=== PATIENT | female | born 1940 | race Caucasian/White ===

== ENCOUNTER 2020-12-24 10:49 | Outpatient (CLI) | payer MEDICARE, SELFPAY | END 2020-12-24 10:50 | disposition home or self-care (01) | LOC: ANHCOVIDVC 10:49 | PROVIDERS: PCP Family Medicine | DX: Z23 Encounter for immunization (principal) | CPT/HCPCS: 0001A; 91300 ==

== ENCOUNTER 2021-01-14 10:23 | Outpatient (CLI) | payer MEDICARE, SELFPAY | END 2021-01-14 10:24 | disposition home or self-care (01) | LOC: ANHCOVIDVC 10:23 | PROVIDERS: PCP Family Medicine | DX: Z23 Encounter for immunization (principal) | CPT/HCPCS: 0002A; 91300 ==

== ENCOUNTER 2021-04-06 12:21 | Inpatient (IN) | payer MEDICARE, SELFPAY ==
[2021-04-06] VITALS (27 sets, daily range): BP systolic 129–166; BP diastolic 46–90; PULSE 71–97; RESP 13–19; TEMP 35.8–36.6; O2SAT 96–100; BMI 21.7
--- NOTE | ~2021-04-06 | XR_ITS ---
EXAMINATION: XR chest 1V 04/06/2021 13:56 INDICATION: Altered mental status. PROCEDURE: AP view of the chest COMPARISON: Comparison to multiple prior studies sequentially, with oldest reviewed study dated 07/06. FINDINGS: The lungs are clear. The cardiomediastinal silhouette is within normal limits. There are no pleural effusions. There is no pneumothorax suspected. Status post median sternotomy for CABG. IMPRESSION: 1: NO ACUTE CARDIOPULMONARY DISEASE. Reviewed, dictated and finalized at location A.
--- NOTE | ~2021-04-06 | CT_ITS ---
EXAMINATION: CT brain wo con DATE: 04/06/2021 13:57 INDICATION: Altered mental status. Generalized weakness. TECHNIQUE: Computed tomography (CT) of the head was performed without intravenous contrast. The dose- length product was 529.67 mGy-cm. Automated exposure control and iterative reconstruction technique w ere employed. COMPARISON: CT dated 01/29/2018 FINDINGS: Generalized atrophy. There are scattered moderate periventricular and subcortical white mat ter changes, most likely related to small vessel ischemic disease (microangiopathy). There is a chron ic right thalamic infarction. No acute intracranial hemorrhage, infarction, mass or mass effect. Basi lar cisterns are patent. Paranasal sinuses are pneumatized. There is right mastoid effusion. No depre ssed skull fractures. IMPRESSION: 1. No acute intracranial abnormality. 2: Chronic age-related findings. 3: Chronic right thalamic infarction. Reviewed, dictated and finalized at location A.
--- NOTE | 2021-04-06 13:05 | ED.AMS ---
HPI - Altered Mental Status General Chief Complaint: Altered Mental Status Stated Complaint: INCREASED WEAKNESS,CONFUSION Time Seen by Provider: 04/06/21 13:05 Source: patient and family Mode of arrival: EMS Limitations: dementia History of Present Illness HPI narrative: Patient is an 80-year-old female who presents for evaluation of altered mental status and increasing weakness. Patient's history is provided mostly by EMS and the patient's given her advanced Alzheimer's dementia. Patient recently had dementia medications changed 3 weeks ago, she is currently taking quetiapine, divalproex as well as memantine which was increased from 10 mg to 50 mg. Patient's feels as if her symptoms worsened when they increase the memantine dose. No fever, chills, nausea or vomiting. Patient with adequate oral intake at home. Patient has had increasing weakness and yesterday was unable to stand or walk. Patient's is unable to lift her. The increasing weakness and decreased ambulation is what prompted their visit to the emergency department today. Related Data Home Medications Medication Instructions Recorded Confirmed quetiapine 50 mg tablet 50 mg PO QHS 04/01/21 04/01/21 trazodone 100 mg tablet 100 mg PO ONCE tablet 04/01/21 04/01/21 divalproex 04/06/21 04/06/21 memantine 50 mg PO DAILY 04/06/21 Allergies Allergy/AdvReac Type Severity Reaction Status Date / Time No Known Allergies Allergy Verified 04/01/21 13:22 Review of Systems Review of Systems: ROS unobtainable: Yes unobtainable due to mental status PMFSH Past Medical History Medical History (Updated 04/06/21 @ 16:42 by Jolie Galo MD) Alzheimer disease Breast cancer CAD (coronary artery disease) Diabetes mellitus Hypothyroid Surgical History Surgical History H/O left mastectomy S/P CABG (coronary artery bypass graft) Social History Social History Smoking status: Never smoker Second hand tobacco smoke exposure: No Alcohol intake: never Substance use: never Substance use type: does not use Gender identity (if verbalized by the patient): Female Spiritual care concerns: No Agree to blood products: Yes Exam Narrative: Exam Narrative: GENERAL: Awake, alert, conversant HEAD: Normocephalic, atraumatic. EYES: PERRLA and EOMI. ENT: Nares clear, no rhinorrhea or epistaxis. Mucous membranes dry NECK: Supple. CHEST: No respiratory distress, breathing even and non labored HEART: Regular rate, sinus rhythm ABDOMEN:Non distended, non tender EXTREMITIES: Normal range of motion. No edema. SKIN: Warm, dry, no rash. NEURO:No focal deficits. Patient is able to raise the left leg off of the bed, unable to do this in the right leg. No facial droop. Tongue is midline. Difficult to have patient follow complex commands, she is unable to complete [id number]-[id number] or [id number] testing. Alert and oriented x1, baseline per spouse Course Vital Signs Vital signs: Vital Signs Temperature 36.6 C 04/06/21 12:27 Pulse Rate 79 04/06/21 12:27 Respiratory Rate 17 04/06/21 12:27 Blood Pressure 135/90 04/06/21 12:27 Pulse Oximetry 99 04/06/21 12:27 Temperature 36.6 C 04/06/21 12:27 Pulse Rate 90 04/06/21 15:45 Respiratory Rate 14 04/06/21 15:45 Blood Pressure 137/64 04/06/21 14:25 Pulse Oximetry 96 04/06/21 15:33 MDM - Altered Mental Status MDM Narrative Medical decision making narrative: Patient presenting for increased weakness. They be secondary to adverse medication reaction versus infectious type process or acute process. Vital signs are stable. Laboratory results are reassuring. Stable, chronic anemia. No severe electrolyte derangement. Patient with a nitrate positive urine, thus was treated with Rocephin. Likely consistent with a urinary tract infection given symptoms. Barbra
[2021-04-06] MEDS: SODIUM CHLORIDE 0.9% IV 1,000 ML 999 ML IV CONT (13:20)
--- NOTE | 2021-04-06 13:21 | ECG_ITS ---
Measurements Intervals [place] Rate: 77 P: 77 OK: 139 QRS: -43 QRSD: 106 T: -8 QT: 373 QTc: 423 Interpretive Statements SINUS RHYTHM ATRIAL PREMATURE COMPLEX LEFT AXIS DEVIATION INTRAVENTRICULAR CONDUCTION DELAY DELAYED PRECORDIAL R/S TRANSITION BORDERLINE ST-T WAVE ABNORMALITY- INF/LAT LEADS BASELINE ARTIFACT- I, V3, V6 BORDERLINE ECG Electronically Signed On 04-06-2021 17:05:53 CDT by Desmond De La Cruz D.O.
[2021-04-06 13:54] LABS: Add Urine Microscopic? YES; Appearance Urine Cloudy (Clear); Bacteria Urine Trace /hpf; Bilirubin Urine Negative (Negative); Blood Urine Negative (Negative); Color Urine Amber (Yellow); Glucose Urine UA Negative (Negative); Ketones Urine Trace mg/dL (Negative); Leukocyte Esterase Ur Negative LEU/UL (Negative); Nitrate Urine Positive (Negative); Protein Urine 1+ mg/dL (Negative); RBC Urine 0-2 /hpf (0-2); Specific Grav Ur 1.018 (1.001-1.035); WBC Urine 0-3 /hpf
[2021-04-06 14:21] LABS: Basophils Percent Auto 0.2 % (0.2-1.2); Eosinophils Percent Auto 0.1 % (0-4.4); Hematocrit 34.7 % (37.0-47.0); Hemoglobin 11.5 g/dL (12.0-15.0); Immature Granulocyte Absolute 0.03 K/mm3 (0.00-0.031); Immature Granulocyte Percent A 0.4 % (0-0.5); Lymphocytes Absolute Auto 0.98 K/mm3 (0.9-3.2); Lymphocytes Percent Auto 11.8 % (18.3-44.2); Mean Corpuscular HGB Conc 33.1 g/dl (32-36); Mean Corpuscular Hemoglobin 30.5 pg (26-34); Monocytes Absolute Auto 0.6 K/mm3 (0.1-0.6); Monocytes Percent Auto 6.6 % (2.6-8.5); Neutrophils Absolute Auto 6.7 K/mm3 (1.3-6.7); Neutrophils Percent Auto 80.9 % (45.5-73.1); Platelet Count Result 132 k/mm3 (150-375); Red Blood Count 3.77 M/mm3 (4.2-5.4); Red Cell Distribution Width 13.8 % (11.5-14.5); White Blood Count 8.3 K/mm3 (4.5-10.0)
[2021-04-06 14:34] LABS: Ammonia < 9 umol/L (9-30)
[2021-04-06 14:35] LABS: Alanine Aminotransferase 9 U/L (4-35); Albumin Level 3.5 g/dL (3.5-5.1); Alkaline Phosphatase 60 U/L (38-126); Anion Gap 6 mmol/L (8-16); Aspartate Amino Transferase 33 U/L (14-36); Bilirubin,Total 0.6 mg/dL (0.2-1.3); Blood Urea Nitrogen 13 mg/dL (7-17); Calcium 8.8 mg/dL (8.4-10.2); Carbon Dioxide 30 mmol/L (22-30); Chloride 101 mmol/L (98-107); Estimated CRCL calculation 34 ml/min; Estimated Glomerular Filt Rate 53; Glucose 97 mg/dL (65-105); Potassium 4.3 mmol/L (3.4-5.0); Prothrombin Time 13.5 Seconds (11.1-14.7); Sodium 137 mmol/L (137-145)
--- NOTE | 2021-04-06 18:54 | ADMGEN ---
This patient, Sherie Amezcua, was admitted to Medical Room 346-01. Patient/family oriented to hospital policies and general routines including ID bracelet, bed and alarms, visiting hours, pain management, procedures, bathroom and other care routines, personal items, smoking policy, room service/diet, and visiting hours. Information on how to activate the Rapid Response Team has been discussed. Patient/Family are encouraged to report perceived risks to care and to ask questions if they do not understand what they are told or what they should do.
--- NOTE | 2021-04-07 04:23 | PM.IMHP ---
H&P: HPI History of Present Illness Date/Time: 04/07/21 04:23 Chief Complaint: Generalized weakness, worsening confusion Narrative: 80-year-old female past medical history of dementia, coronary artery disease and hypertension who presented to the ER via EMS from home with family report of worsening mental status and generalized weakness. Source of information is ER records and outpatient records. The patient has dementia and that is been progressing went rapidly recently. She went to see her psychiatrist in the change her dementia meds 3 weeks ago. The doctor increased her Seroquel to 50 mg daily and she was continued on trazodone, Depakote and Namenda. The patient's feel the patient's symptoms worsened after the increased her Seroquel. Patient has developed increasing weakness and is unable to stand or walk. Her is unable to lift her. Over recent months the patient has had multiple falls due to obstacles around the house. The patient was evaluated by her primary care physician on the 01 of April. She had baseline labs done at that time. The patient had had 10-15 lb weight gain with her medication changes and her had reported that the patient is no longer showering. According to the outpatient visit note the patient's trazodone was switched from 100 mg p.o. twice a day to 100 mg daily. When I went to evaluate the patient she yelled at me ?what the hell happened?? She was unable to answer any orientation questions. Review of Systems Review of Systems: ROS unobtainable: Yes unobtainable due to medical condition (Dementia) [facility] Past Medical History Medical History (Updated 04/07/21 @ 06:05 by Emily Ramos DO) Alzheimer disease Breast cancer CAD (coronary artery disease) Diabetes mellitus Hypothyroid Surgical History Surgical History H/O left mastectomy S/P CABG (coronary artery bypass graft) Family History Family History Other Unknown family medical history Social History Social History Smoking status: Never smoker Second hand tobacco smoke exposure: No Alcohol intake: never Substance use: never Substance use type: does not use Living arrangements: with family Occupation/Education: retired Gender identity (if verbalized by the patient): Female Spiritual care concerns: No Agree to blood products: Yes Meds Home Medications and Allergies Home Medications Medication Instructions Recorded Confirmed Type quetiapine 50 mg tablet 50 mg PO QHS 04/01/21 04/06/21 History trazodone 100 mg tablet 100 mg PO HS tablet 04/01/21 04/06/21 History divalproex 1,000 mg PO HS 04/06/21 04/06/21 History memantine 10 mg PO BID 04/06/21 04/06/21 History Allergies Allergy/AdvReac Type Severity Reaction Status Date / Time No Known Allergies Allergy Verified 04/01/21 13:22 Vital Signs Vital Signs - 24 hr 04/06/21 12:27 04/06/21 12:37 04/06/21 12:45 Temperature 97.8 F Pulse Rate 79 79 81 Respiratory Rate 17 15 15 Blood Pressure 135/90 Pulse Oximetry 99 99 97 04/06/21 12:46 04/06/21 13:08 04/06/21 13:15 Temperature Pulse Rate 77 78 74 Respiratory Rate 14 15 14 Blood Pressure 132/55 L Pulse Oximetry 99 98 100 04/06/21 13:16 04/06/21 13:32 04/06/21 14:25 Temperature Pulse Rate 73 89 71 Respiratory Rate 14 19 17 Blood Pressure 134/50 L 137/64 Pulse Oximetry 100 99 04/06/21 14:41 04/06/21 14:45 04/06/21 15:01 Temperature Pulse Rate 75 75 81 Respiratory Rate 13 16 Blood Pressure Pulse Oximetry 100 97 100 04/06/21 15:15 04/06/21 15:32 04/06/21 15:33 Temperature Pulse Rate 84 93 90 Respiratory Rate 16 14 19 Blood Pressure Pulse Oximetry 96 98 96 04/06/21 15:45 04/06/21 15:48 04/06/21 15:52 Temperature Pulse Rate 90 97 86 Respiratory Rate 14 1
[2021-04-07 05:37] VITALS: BP 182/78; PULSE 87; RESP 16; TEMP 35.8; O2SAT 99
[2021-04-07] MEDS: MEMANTINE 10 MG TABLET PO ×2 (08:00→16:01)
--- NOTE | 2021-04-07 13:25 | PM.IMPN ---
Progress Note: A&P Assessment and Plan (1) Dementia: Qualifiers: Dementia type: unspecified type Dementia behavioral disturbance: with behavioral disturbance Qualified Code(s): F03.91 - Unspecified dementia with behavioral disturbance Code(s): F03.90 - Unspecified dementia without behavioral disturbance Status: Acute Assessment and Plan: Continue current care (2) Weakness: Code(s): R53.1 - Weakness Status: Acute Assessment and Plan: Continue current care (3) Elevated blood pressure reading: Code(s): R03.0 - Elevated blood-pressure reading, without diagnosis of hypertension Status: Acute Assessment and Plan: Continue current care Subjective Date/time seen: 04/07/21 13:25 Interval history: Generalized weakness, worsening confusion secondary to UTI. Review of Systems Review of Systems: All systems reviewed & are unremarkable except as noted in HPI and below Exam Const: General: tired appearing and other; No in distress Nutritional Appearance: overweight Orientation/consciousness: oriented to person HENMT: Head: normal to inspection Resp: Effort & Inspection: no respiratory distress Auscultation: no rhonchi and no wheezes Cardio: Rate: regular rate Rhythm: regular rhythm GI: Inspection: normal to inspection GI Palp: No abdominal tenderness, No Guarding due to palpation present (GI) and No Hepatomegaly present Auscultation: normal bowel sounds Neuro: General: oriented to person Objective Data Vital Signs Vital Signs: Vital Signs - 24 hr 04/06/21 13:32 04/06/21 14:25 04/06/21 14:41 Temperature Pulse Rate 89 71 75 Respiratory Rate 19 17 Blood Pressure 137/64 Pulse Oximetry 99 100 04/06/21 14:45 04/06/21 15:01 04/06/21 15:15 Temperature Pulse Rate 75 81 84 Respiratory Rate 13 16 16 Blood Pressure Pulse Oximetry 97 100 96 04/06/21 15:32 04/06/21 15:33 04/06/21 15:45 Temperature Pulse Rate 93 90 90 Respiratory Rate 14 19 14 Blood Pressure Pulse Oximetry 98 96 04/06/21 15:48 04/06/21 15:52 04/06/21 16:04 Temperature Pulse Rate 97 86 92 Respiratory Rate 16 19 13 Blood Pressure Pulse Oximetry 04/06/21 16:15 04/06/21 16:17 04/06/21 16:30 Temperature Pulse Rate 87 87 91 Respiratory Rate 16 18 Blood Pressure Pulse Oximetry 04/06/21 16:32 04/06/21 16:46 04/06/21 17:37 Temperature Pulse Rate 87 86 77 Respiratory Rate 16 16 16 Blood Pressure 166/80 H Pulse Oximetry 98 04/06/21 18:57 04/06/21 19:46 04/07/21 05:37 Temperature 36.3 C L 35.8 C L 35.8 C L Pulse Rate 77 81 87 Respiratory Rate 16 16 16 Blood Pressure 129/46 L 166/77 H 182/78 H Pulse Oximetry 100 100 99 Intake/Output Intake/Output: Intake & Output 04/04/21 04/05/21 04/06/21 04/07/21 23:59 23:59 23:59 23:59 Intake Total 1050 50 Output Total 100 Balance 1050 -50 Meds/Results Medications: Active Medications Generic Name Dose Route Start Last Admin Trade Name Freq PRN Reason Stop Dose Admin Acetaminophen 650 mg 04/06/21 16:43 Acetaminophen 325 Mg Tablet PO Q4H PRN Mild Pain (1-3) or Fever Divalproex Sodium 1,000 mg 04/07/21 21:00 Divalproex Sodium Er 500 Mg Tab.24h PO HS LOLITA Memantine 10 mg 04/07/21 09:00 04/07/21 08:00 Memantine 10 Mg Tablet PO 10 mg BID LOLITA Administration Quetiapine Fumarate 25 mg 04/07/21 21:00 Quetiapine Fumarate 25 Mg Tablet PO HS LOLITA Trazodone HCl 100 mg 04/07/21 21:00 Trazodone Hcl 50 Mg Tablet PO HS LOLITA Radiology Results: ITS Impressions Head CT 04/06/21 14:06 IMPRESSION: 1. No acute intracranial abnormality. 2: Chronic age-related findings. 3: Chronic right thalamic infarction. Chest X-Ray 04/06/21 14:09 IMPRESSION: 1: NO ACUTE CARDIOPULMONARY DISEASE. Labs Labs: Laboratory Results - last 24 hr 04/06/21 04/06/21 04/06/21 13:3
[2021-04-07 14:00] VITALS: BP 131/61; PULSE 90; RESP 18; TEMP 36.8; O2SAT 99
[2021-04-07 21:15] VITALS: BP 148/55; PULSE 81; RESP 18; TEMP 36.1; O2SAT 98
[2021-04-07] MEDS: DIVALPROEX SODIUM ER 500 MG TAB.24H 1000 MG PO (21:40)
[2021-04-07] MEDS: QUEtiapine FUMARATE 25 MG TABLET PO (21:41)
[2021-04-07] MEDS: traZODone HCL 50 MG TABLET 100 MG PO (21:41)
[2021-04-08 06:11] VITALS: BP 150/74; PULSE 77; RESP 16; TEMP 37; O2SAT 97
[2021-04-08] MEDS: MEMANTINE 10 MG TABLET PO ×2 (09:30→17:04)
[2021-04-08 14:00] VITALS: BP 111/47; PULSE 66; RESP 16; TEMP 36.4; O2SAT 100
--- NOTE | 2021-04-08 14:53 | PC.NURSE ---
On 04/08/21, the student, [ Venice Esquivel], provided care and completed [facility] documentation on this patient. I have reviewed the student's documentation and agree with the findings.
--- NOTE | 2021-04-08 14:53 | PCDIET ---
On 04/08/21, the student, [Rene Avila ], provided care and completed [facility] documentation on this patient. I have reviewed the student's documentation and agree with the findings.
--- NOTE | 2021-04-08 14:58 | PC.NURSE ---
On 04/08/21, the student, [ Rene Avila], provided care and completed [facility] documentation on this patient. I have reviewed the student's documentation and agree with the findings.
--- NOTE | 2021-04-08 17:00 | PM.IMPN ---
Progress Note: A&P Assessment and Plan (1) Dementia: Qualifiers: Dementia type: unspecified type Dementia behavioral disturbance: with behavioral disturbance Qualified Code(s): F03.91 - Unspecified dementia with behavioral disturbance Code(s): F03.90 - Unspecified dementia without behavioral disturbance Status: Acute Assessment and Plan: Continue current care (2) Weakness: Code(s): R53.1 - Weakness Status: Acute Assessment and Plan: Continue current care (3) Elevated blood pressure reading: Code(s): R03.0 - Elevated blood-pressure reading, without diagnosis of hypertension Status: Acute Assessment and Plan: Continue current care Subjective Date/time seen: 04/08/21 17:00 Interval history: Generalized weakness, worsening confusion secondary to UTI. Review of Systems Review of Systems: All systems reviewed & are unremarkable except as noted in HPI and below ROS unobtainable: Yes unobtainable due to medical condition (Dementia) Exam Const: General: tired appearing and other; No in distress Nutritional Appearance: overweight Orientation/consciousness: oriented to person HENMT: Head: normal to inspection Resp: Effort & Inspection: no respiratory distress Auscultation: no rhonchi and no wheezes Cardio: Rate: regular rate Rhythm: regular rhythm GI: Inspection: normal to inspection Auscultation: normal bowel sounds Neuro: General: oriented to person Objective Data Vital Signs Vital Signs: Vital Signs - 24 hr 04/07/21 21:15 04/08/21 06:11 04/08/21 14:00 Temperature 36.1 C L 37.0 C 36.4 C Pulse Rate 81 77 66 Respiratory Rate 18 16 16 Blood Pressure 148/55 H 150/74 H 111/47 L Pulse Oximetry 98 97 100 Intake/Output Intake/Output: Intake & Output 04/05/21 04/06/21 04/07/21 04/08/21 23:59 23:59 23:59 23:59 Intake Total 1050 390 50 Output Total 100 Balance 1050 290 50 Meds/Results Medications: Active Medications Generic Name Dose Route Start Last Admin Trade Name Freq PRN Reason Stop Dose Admin Acetaminophen 650 mg 04/06/21 16:43 Acetaminophen 325 Mg Tablet PO Q4H PRN Mild Pain (1-3) or Fever Divalproex Sodium 1,000 mg 04/07/21 21:00 06/16/21 21:40 Divalproex Sodium Er 500 Mg Tab.24h PO 1,000 mg HS LOLITA Administration Ceftriaxone Sodium/Dextrose 1 gm in 50 mls @ 100 mls/hr 04/07/21 14:00 04/08/21 14:40 Rocephin 1 Gm/D5w 50 Ml IVPB Infused Q24H LOLITA Infusion Memantine 10 mg 04/07/21 09:00 04/08/21 09:30 Memantine 10 Mg Tablet PO 10 mg BID LOLITA Administration Miconazole Nitrate 1 applic 04/07/21 14:30 04/08/21 09:30 Miconazole 2% Antifungal Ointment 56 Gm TOPICAL 1 applic Q12HR LOLITA Administration Quetiapine Fumarate 25 mg 04/07/21 21:00 04/07/21 21:41 Quetiapine Fumarate 25 Mg Tablet PO 25 mg HS LOLITA Administration Trazodone HCl 100 mg 04/07/21 21:00 04/07/21 21:41 Trazodone Hcl 50 Mg Tablet PO 100 mg HS LOLITA Administration Radiology Results: ITS Impressions Head CT 04/06/21 14:06 IMPRESSION: 1. No acute intracranial abnormality. 2: Chronic age-related findings. 3: Chronic right thalamic infarction. Chest X-Ray 04/06/21 14:09 IMPRESSION: 1: NO ACUTE CARDIOPULMONARY DISEASE. Quality VTE Prophylaxis VTE prophylaxis: mechanical ordered (SCDs)
[2021-04-08 20:12] VITALS: BP 129/57; PULSE 85; RESP 16; TEMP 35.9; O2SAT 97
[2021-04-08] MEDS: traZODone HCL 50 MG TABLET 100 MG PO (20:33)
[2021-04-08] MEDS: DIVALPROEX SODIUM ER 500 MG TAB.24H 1000 MG PO (20:33)
[2021-04-08] MEDS: QUEtiapine FUMARATE 25 MG TABLET PO (20:34)
[2021-04-08 21:14] LABS: Glucose Point of Care 194 mg/dl (65-105)
[2021-04-09 05:54] VITALS: BP 144/63; PULSE 79; RESP 16; TEMP 36; O2SAT 97
[2021-04-09] MEDS: MEMANTINE 10 MG TABLET PO ×2 (10:31→16:26)
--- NOTE | 2021-04-09 14:01 | PM.IMPN ---
Progress Note: A&P Assessment and Plan (1) Dementia: Qualifiers: Dementia type: unspecified type Dementia behavioral disturbance: with behavioral disturbance Qualified Code(s): F03.91 - Unspecified dementia with behavioral disturbance Code(s): F03.90 - Unspecified dementia without behavioral disturbance Status: Acute Assessment and Plan: Continue current care (2) Weakness: Code(s): R53.1 - Weakness Status: Acute Assessment and Plan: Continue current care (3) Elevated blood pressure reading: Code(s): R03.0 - Elevated blood-pressure reading, without diagnosis of hypertension Status: Acute Assessment and Plan: Continue current care Subjective Date/time seen: 04/09/21 14:01 Interval history: Generalized weakness, worsening confusion secondary to UTI. Pt has severe dementia pleasantly confused Review of Systems Review of Systems: All systems reviewed & are unremarkable except as noted in HPI and below ROS unobtainable: Yes unobtainable due to medical condition (Dementia) Exam Const: General: tired appearing and other; No in distress Nutritional Appearance: overweight Orientation/consciousness: oriented to person HENMT: Head: normal to inspection Resp: Effort & Inspection: no respiratory distress Auscultation: no rhonchi and no wheezes Cardio: Rate: regular rate Rhythm: regular rhythm GI: Inspection: normal to inspection Auscultation: normal bowel sounds Neuro: General: oriented to person Objective Data Vital Signs Vital Signs: Vital Signs - 24 hr 04/08/21 20:12 04/09/21 05:54 Temperature 35.9 C L 36.0 C L Pulse Rate 85 79 Respiratory Rate 16 16 Blood Pressure 129/57 L 144/63 H Pulse Oximetry 97 97 Intake/Output Intake/Output: Intake & Output 04/06/21 04/07/21 04/08/21 04/09/21 23:59 23:59 23:59 23:59 Intake Total 1050 390 470 200 Output Total 100 Balance 1050 290 470 200 Meds/Results Medications: Active Medications Generic Name Dose Route Start Last Admin Trade Name Freq PRN Reason Stop Dose Admin Acetaminophen 650 mg 04/06/21 16:43 Acetaminophen 325 Mg Tablet PO Q4H PRN Mild Pain (1-3) or Fever Divalproex Sodium 1,000 mg 04/07/21 21:00 04/08/21 20:33 Divalproex Sodium Er 500 Mg Tab.24h PO 1,000 mg HS LOLITA Administration Ceftriaxone Sodium/Dextrose 1 gm in 50 mls @ 100 mls/hr 04/07/21 14:00 04/09/21 13:06 Rocephin 1 Gm/D5w 50 Ml IVPB 100 mls/hr Q24H LOLITA Administration Memantine 10 mg 04/07/21 09:00 04/09/21 10:31 Memantine 10 Mg Tablet PO 10 mg BID LOLITA Administration Miconazole Nitrate 1 applic 04/07/21 14:30 04/09/21 10:31 Miconazole 2% Antifungal Ointment 56 Gm TOPICAL 1 applic Q12HR LOLITA Administration Quetiapine Fumarate 25 mg 04/07/21 21:00 04/08/21 20:34 Quetiapine Fumarate 25 Mg Tablet PO 25 mg HS LOLITA Administration Trazodone HCl 100 mg 04/07/21 21:00 04/08/21 20:33 Trazodone Hcl 50 Mg Tablet PO 100 mg HS LOLITA Administration Radiology Results: ITS Impressions Head CT 04/06/21 14:06 IMPRESSION: 1. No acute intracranial abnormality. 2: Chronic age-related findings. 3: Chronic right thalamic infarction. Chest X-Ray 04/06/21 14:09 IMPRESSION: 1: NO ACUTE CARDIOPULMONARY DISEASE. Labs Labs: Laboratory Results - last 24 hr 04/08/21 20:42 POC Capillary Glucose 194 H Quality VTE Prophylaxis VTE prophylaxis: mechanical ordered (SCDs)
[2021-04-09 14:11] VITALS: BP 136/55; PULSE 88; RESP 18; TEMP 36.1; O2SAT 98
--- NOTE | 2021-04-09 14:29 | PC.NURSE ---
On 04/09/21, the student, [Rene Avila ], provided care and completed [facility] documentation on this patient. I have reviewed the student's documentation and agree with the findings.
[2021-04-09 20:00] VITALS: PULSE 98; RESP 17; O2SAT 96
[2021-04-09] MEDS: DIVALPROEX SODIUM ER 500 MG TAB.24H 1000 MG PO (20:01)
[2021-04-09] MEDS: traZODone HCL 50 MG TABLET 100 MG PO (20:01)
[2021-04-09] MEDS: QUEtiapine FUMARATE 25 MG TABLET PO (20:01)
[2021-04-09 20:33] VITALS: BP 127/88; PULSE 98; RESP 17; TEMP 36.1; O2SAT 96
[2021-04-10 05:13] VITALS: BP 133/72; PULSE 69; RESP 17; TEMP 36.6; O2SAT 97
[2021-04-10] MEDS: MEMANTINE 10 MG TABLET PO (08:33)
--- NOTE | 2021-04-10 12:27 | PM.DS ---
DS: Admitting Diagnosis Admitting Diagnosis Admitting Diagnosis: Generalized weakness, worsening confusion DS: Discharge Diagnosis Discharge Diagnosis (1) Dementia: Qualifiers: Dementia type: unspecified type Dementia behavioral disturbance: with behavioral disturbance Qualified Code(s): F03.91 - Unspecified dementia with behavioral disturbance Code(s): F03.90 - Unspecified dementia without behavioral disturbance Status: Acute Assessment and Plan: Continue current care back to baseline, stable for discharge. (2) Weakness: Code(s): R53.1 - Weakness Status: Resolved Assessment and Plan: Continue current care. Pt was very weak and solumnent on admission pt is much better now, back to her baseline.. (3) Elevated blood pressure reading: Code(s): R03.0 - Elevated blood-pressure reading, without diagnosis of hypertension Status: Chronic Assessment and Plan: Continue current care (4) Acute UTI: Code(s): N39.0 - Urinary tract infection, site not specified Status: Resolved Assessment and Plan: Pt treated with IV rocephin for possible UTI, UC is negative, ok to discharge. DS: Summary Hospital Course Hospital Course: Generalized weakness and solument on admission, worsening confusion secondary to UTI. Pt has severe dementia, back to baseline ok for discharge. Time Spent with Patient Time attestation: Total time spent providing and/or coordinating discharge services:40 minutes on day of discharge Exam Const: General: other; No in distress Nutritional Appearance: overweight Orientation/consciousness: oriented to person HENMT: Head: normal to inspection Resp: Effort & Inspection: no respiratory distress Auscultation: no rhonchi and no wheezes Cardio: Rate: regular rate Rhythm: regular rhythm GI: Inspection: normal to inspection Auscultation: normal bowel sounds Neuro: General: oriented to person Discharge Plan Discharge Attending physician on discharge: Sheryl Wolff Discharging Clinician: Sheryl Wolff Anticipated Discharge Date/Time: 04/10/21 12:26 Patient Disposition: SNF Activity: as tolerated Diet: regular Patient Instructions: Urinary Tract Infection in Women (DC), Weakness (DC) Stand Alone Forms: General Discharge Information Follow-up/Referrals: Elvia Mccallum, [Primary Care Provider] - Discharge Medications: Continued quetiapine 50 mg tablet 50 mg PO QHS RF: 0 trazodone 100 mg tablet 100 mg PO HS RF: 0 memantine 10 mg tablet 10 mg PO BID RF: 0 divalproex 500 mg tablet extended release 24 hr 1,000 mg PO HS RF: 0 Date of admission: 04/09/21 20:06 Primary Care Provider: Elvia Mccallum Admitting Provider: Adrian Manriquez Attending physician on admission: Adrian Manriquez Condition: Stable
== END 2021-04-10 15:40 | DRG 690 ==
LOC: ANHED 16:39 → ANH3MED 17:51
PROVIDERS: Internal Medicine; Admitting Provider Family Medicine; Emergency Provider Emergency Medicine; PCP Family Medicine; Visit Provider Family Medicine
DX: N39.0 Urinary tract infection, site not specified (principal); G30.9 Alzheimer's disease, unspecified; F02.80 Dementia in other diseases classified elsewhere, unspecified severity, without behavioral disturbance, psychotic disturbance, mood disturbance, and anxiety; R03.0 Elevated blood-pressure reading, without diagnosis of hypertension; I25.10 Atherosclerotic heart disease of native coronary artery without angina pectoris; E03.9 Hypothyroidism, unspecified; E11.9 Type 2 diabetes mellitus without complications; Z85.3 Personal history of malignant neoplasm of breast; Z95.1 Presence of aortocoronary bypass graft
CPT/HCPCS: 36415; 70450; 71045; 80053; 81001; 82140; 82948; 84443; 85025; 85610; 87086; 93005; 96361; 96365; 96366; 97161; 97165; 97530; 97535; 99285; A9270; G0378; J0696; J7030

== ENCOUNTER 2021-04-28 07:55 | Outpatient (CLI) | payer OTHER, MEDICARE, SELFPAY | END 2021-04-28 07:56 | disposition home or self-care (01) | LOC: ANHAUDIO 08:01 | PROVIDERS: PCP Family Medicine; Visit Provider Family Medicine | DX: H91.93 Unspecified hearing loss, bilateral (principal) | CPT/HCPCS: 92567; 92579 ==

== ENCOUNTER 2021-05-13 09:44 | Inpatient (IN) | payer MEDICARE, SELFPAY ==
[2021-05-13] VITALS (21 sets, daily range): BP systolic 87–147; BP diastolic 58–84; PULSE 74–119; RESP 18–40; TEMP 36.2–37.6; O2SAT 95–100; BMI 22.8
--- NOTE | ~2021-05-13 | US_ITS ---
EXAMINATION: US renal BI DATE: 05/13/2021 15:22 INDICATION: Acute kidney injury TECHNIQUE: Multiple grayscale and Doppler ultrasound images of the kidneys were obtained. COMPARISON: None. FINDINGS: The right kidney measures 8.1 x 4.6 x 4.4 cm. The left kidney measures 9.5 x 4.5 x 4.5 cm. The kidneys demonstrate normal parenchymal echogenicity. There is no hydronephrosis. The bladder is d ecompressed by a Poole catheter. IMPRESSION: 1. Mild atrophy of the otherwise normal kidneys. Reviewed, dictated and finalized at location B.
--- NOTE | ~2021-05-13 | XR_ITS ---
EXAMINATION: XR chest 1V portable DATE: 05/14/2021 05:43 INDICATION: Endotracheal tube placement TECHNIQUE: frontal view of the chest was obtained. COMPARISON: Chest radiograph dated 05/13/2021 FINDINGS: Endotracheal tube tip 5.9 cm above the jasmyn. Nasogastric tube extends below the left hemidiaphragm with distal tip collimated off the study. Unchanged elevation of the right hemidiaphragm with opacities in the right lower lung zone. No pulmon juan edema, pleural effusion or pneumothorax. The cardiomediastinal silhouette is normal. IMPRESSION: 1. Opacities at the right lung base which could represent atelectasis and/or pneumonia. Reviewed, dictated and finalized at location A. IMPRESSION: 1. Opacities at the right lung base which could represent atelectasis and/or pn eumonia.
--- NOTE | ~2021-05-13 | XR_ITS ---
XR chest 1V portable 05/18/2021 05:56 Indication: Acute respiratory failure Procedure: AP portable chest Comparison: 05/17/2021 Findings: Endotracheal tube tip 3.2 cm above the jasmyn. Right IJ central line tip in the SVC. NG tub e in the stomach. Persistent bibasilar airspace disease with cavitation in the right midlung zone, co nsistent with pneumonia. No pneumothorax. No significant effusion. Impression: 1: Persistent bibasilar airspace disease, consistent with pneumonia with cavitation in the right midl cornelio zone. Reviewed, dictated and finalized at location A. Impression: 1: Persistent bibasilar airspace disease, consistent with pneumonia with cavita tion in the right midlung zone.
--- NOTE | ~2021-05-13 | XR_ITS ---
XR chest 1V portable 05/20/2021 05:29 Indication: Cavitary pneumonia Procedure: AP portable chest Comparison: Comparison to multiple prior studies sequentially, with oldest reviewed study dated 05/17. Findings: Persistent retrocardiac and right-sided airspace disease, consistent with pneumonia. Cavita ry changes in the right midlung zone. No significant change. Tubes and lines unchanged. No pneumothor ax or pleural effusion. Impression: 1: Stable patchy bilateral airspace disease, compatible with pneumonia. Unchanged cavitation right mi dlung zone. Reviewed, dictated and finalized at location A. Impression: 1: Stable patchy bilateral airspace disease, compatible with pneumonia. Unchang ed cavitation right midlung zone.
--- NOTE | ~2021-05-13 | XR_ITS ---
XR abdomen NG/feed tube insert DATE: 05/13/2021 10:44 INDICATION: NG tube placement TECHNIQUE: Portable supine AP view on 05/13/2021 at 1037 hours COMPARISON: None FINDINGS: NG tube noted in the stomach, the tip overlying the distal body or antrum. There are nondilated gas containing small bowel segments. No apparent bowel obstruction is noted. The psoas shadows appear intact. No visceromegaly is evident. Sternal wire sutures. Degenerative spurring of the thoracic and lumbar spine. IMPRESSION: NG tube in distal body or antrum of stomach Reviewed, dictated and finalized at Location A. Reviewed, dictated and finalized at location A.
--- NOTE | ~2021-05-13 | CT_ITS ---
EXAMINATION: CT brain wo con DATE: 05/13/2021 11:37 INDICATION: Unresponsive on ventilator. TECHNIQUE: Computed tomography (CT) of the head was performed without intravenous contrast. The mA wa s adjusted according to patient size. Iterative reconstruction technique was employed. Exam dose: 52 9.67 mGy-cm total exam DLP. COMPARISON: 04/08/2021 CT brain FINDINGS: Bilateral carotid siphon internal carotid artery and vertebral artery calcifications. There is nonspecific diminished attenuation of cerebral white matter, likely due to chronic small ves newton ischemic changes. Chronic right thalamic lacunar infarct. No intracranial mass lesion or hemorrhage or cerebrovascular accident is detected. No midline shift o r mass effect effect. There is central and cortical cerebral and cerebellar atrophy. No orbital mass lesion is evident. No skull fracture or bone destruction. Bilateral hyperostosis frontalis interna, not likely of any cl inical significance. The mastoid air cells and included paranasal sinuses are unremarkable. IMPRESSION: Cerebral atherosclerosis and chronic small vessel ischemic changes of cerebral white mat ter Chronic lacunar infarct of right thalamus No acute intracranial finding or significant change since 04/06/2021 Reviewed, dictated and finalized at Location A. Reviewed, dictated and finalized at location A. IMPRESSION: Cerebral atherosclerosis and chronic small vessel ischemic changes of cerebral white matter Chronic lacunar infarct of right thalamus No acute intracranial finding or significant change since 04/06/2021
--- NOTE | ~2021-05-13 | CT_ITS ---
EXAMINATION: CT brain wo con EXAM DATE: 05/16/2021 18:55 INDICATION: Encephalopathy. TECHNIQUE: Spiral CT of the head was performed without contrast. Axial, coronal and sagittal images were reviewed. The dose-length product (DLP) for this examination was 605.33 mGy-cm. The exposure w as tailored according to patient size, and iterative reconstruction (ASIR) was used as additional dos e reduction technique. Comparison is made to prior examination from 05/13/2021. FINDINGS: There is no acute intraparenchymal hemorrhage. No evidence of intraparenchymal brain mass lesion. No evidence of acute infarction. Please note that initial head CT has limited sensitivity f or small or acute infarctions. Old right thalamic lacunar infarction. There is moderate to severe per iventricular and subcortical hypodensity, nonspecific but probably related to small vessel ischemic d isease. There is moderate prominence of the sulci and ventricles related to cerebral atrophy. The re is intracranial carotid arteriosclerosis. There are no extra-axial collections. There is no mass effect or midline shift. Patient has had bilateral ocular lens surgery. Soft tissue is unremarkabl e. The visualized sinuses and mastoid air cells are well aerated. IMPRESSION: 1. No acute intracranial findings. 2. Chronic age related findings. Reviewed, dictated and finalized at location A.
--- NOTE | ~2021-05-13 | XR_ITS ---
XR chest 1V portable DATE: 05/16/2021 05:31 INDICATION: Acute respiratory failure TECHNIQUE: Portable AP chest on 05/16/2021 at 0521 hours COMPARISON: 05/11/2021 portable AP chest at 0522 hours Serial chest radiograph dating back to 12/09/2013 FINDINGS: ET tube in satisfactory position 5 cm above jasmyn. NG tube in stomach. Right internal jugular central venous catheter tip overlies the superior vena cava near the superior cavoatrial junction. Status post sternotomy. Normal heart size. Diffuse osteopenia. There is increased patchy consolidating infiltrate in the right mid and lower lung zones since 021 and 05/11/2021. There is question of a cavitary lesion of the right mid and lower lung. There is lesser left retrocardiac lower lobe infiltrate and/atelectasis. No pleural effusion or pulmonary vascular congestion or pneumothorax . IMPRESSION: Increased bilateral pulmonary infiltrates with question of cavitary lesion in the right m id to lower lung Reviewed, dictated and finalized at location A. IMPRESSION: Increased bilateral pulmonary infiltrates with question of cavitary lesion in the right mid to lower lung
--- NOTE | ~2021-05-13 | XR_ITS ---
XR chest 1V portable 05/21/2021 05:36 Indication: Respiratory failure Procedure: AP portable chest Comparison: Comparison to multiple prior studies sequentially, with oldest reviewed study dated 05/17. Findings: Endotracheal tube tip 3 cm above the jasmyn. Heart size normal. Mild diffuse bilateral airs pace disease. Cavitary lesion noted on prior examination in the right mid chest is not appreciated on the current study. Small right effusion. Right IJ central line tip in mass cc. NG tube in the stomac h. Impression: 1: Persistent bilateral airspace disease of the mid and lower lungs which may represent pneumonia and /or edema. 2: Small right pleural effusion. Reviewed, dictated and finalized at location A. Impression: 1: Persistent bilateral airspace disease of the mid and lower lungs which may r epresent pneumonia and/or edema. 2: Small right pleural effusion.
--- NOTE | ~2021-05-13 | XR_ITS ---
XR chest 1V portable 05/19/2021 05:55 Indication: Respiratory failure Procedure: AP portable chest Comparison: Comparison to multiple prior studies sequentially, with oldest reviewed study dated 05/16. Findings: Persistent bilateral airspace disease, right greater than left. There is an enlarging cavit juan lesion of the right midlung zone. Endotracheal tube tip approximately 3 cm above the jasmyn. NG t ube in the stomach. Central line tip in the CC. Heart size normal. No pneumothorax. No acute osseous abnormality. Impression: 1: Persistent bilateral airspace disease, right greater than left, consistent with pneumonia. Enlargi ng cavitary lesion right midlung zone, likely infectious. Reviewed, dictated and finalized at location A. Impression: 1: Persistent bilateral airspace disease, right greater than left, consistent w ith pneumonia. Enlarging cavitary lesion right midlung zone, likely infectious.
--- NOTE | ~2021-05-13 | CT_ITS ---
EXAMINATION: CT diagnostic chest wo con EXAM DATE: 05/20/2021 09:46 INDICATION: Cavitary pneumonia. Left-sided breast cancer. Respiratory failure. TECHNIQUE: Spiral CT of the chest without contrast. Axial, coronal and sagittal images of the chest were reviewed. Coronal maximum intensity pixel images of chest reviewed. The dose-length product ( DLP) for this examination was 153.72 mGy-cm. The exposure was tailored according to patient size (au to mA exposure control), and iterative reconstruction (ASIR) was used as additional dose reduction te [place]. Comparison is made to prior examination from 05/16/2021. FINDINGS: Endotracheal tube and nasogastric tube are in expected positions. There is a right-sided IJ venous line. There is right lower lobe necrotic pneumonia with multi segmental involvement. Masslike thick-walled cavitary region with fluid/debris measuring 6.8 cm (was 5.8 cm). There is interval impr ovement in the other scattered regions of pneumonia. Development of small right pleural effusion. Previously seen rather extensive lower lobe segmental endobronchial opacity, debris has resolved. The re is only small amount of fluid layering in the dependent aspect of the jasmyn on this exam. Some r eactive mediastinal lymph nodes. There is no pneumothorax. Heart normal in size. There are perry otomy wires, and cardiac/coronary surgical changes. Correlate with prior history. Upper abdomen is u nremarkable. There is thoracic spondylosis without osteoblastic or osteolytic lesions identified. S urgical changes from left mastectomy, axillary lymph node dissection. IMPRESSION: 1. Increase in size of cavitary right lower lobe mass most likely necrotic pneumonia. Underlying can cer not totally excludable. 2. Improvement in the other regions of pneumonia. 3. Improvement in the airway fluid/debris. 4. Development of small right pleural effusion. 5. Reactive lymphadenopathy. 6. Tubes, line in position. Reviewed, dictated and finalized at location B. IMPRESSION: 1. Increase in size of cavitary right lower lobe mass most likely necrotic pne umonia. Underlying cancer not totally excludable. 2. Improvement in the other regions of pneumonia. 3. Improvement in the airway fluid/debris. 4. Development of small right pleural effusion. 5. Reactive lymphadenopathy. 6. Tubes, line in position.
--- NOTE | ~2021-05-13 | XR_ITS ---
XR chest ET placement DATE: 05/13/2021 10:44 INDICATION: ET tube placement TECHNIQUE: Portable AP chest on 05/13/2021 at 1035 hours COMPARISON: 05/13/2021 portable AP chest FINDINGS: Status post sternotomy. ET tube tip 4.9 cm above jasmyn in satisfactory position. NG tube in stomach. There is right basilar infiltrate and/or atelectasis. The remaining lung burt appear clear. No pleural effusion or pulmonary vascular congestion or pneumothorax. Diffuse osteopenia. Surgical clips are noted in the left axillary area is suggestion of left mastecto my. Diffuse osteopenia. IMPRESSION: ET and NG tubes in satisfactory position Right basilar infiltrate or atelectasis Reviewed, dictated and finalized at Location A. Reviewed, dictated and finalized at location A.
--- NOTE | ~2021-05-13 | XR_ITS ---
EXAMINATION: XR chest 1V portable INDICATION: Altered mental status, tachypnea TECHNIQUE: Portable AP chest at 1000 hours COMPARISON: 04/06/2021 FINDINGS: There are airspace opacities in the right lung base. No pleural effusion or pneumothorax is identified. The cardiomediastinal silhouette is normal. Median sternotomy wires and mediastinal surg ical clips are seen, likely from prior coronary artery bypass grafting. Surgical clips are noted in t he left axilla. There are changes of left mastectomy. IMPRESSION: 1. Right basilar airspace opacity, consistent with atelectasis versus pneumonia. Reviewed, dictated and finalized at location B. IMPRESSION: 1. Right basilar airspace opacity, consistent with atelectasis versus pneumonia .
--- NOTE | ~2021-05-13 | XR_ITS ---
XR chest 1V portable 05/17/2021 13:47 Indication: Post bronchoscopy. Respiratory failure. Procedure: AP portable chest Comparison: Comparison to multiple prior studies sequentially, with oldest reviewed study dated 05/14. Findings: Patchy infiltrates of the right mid and bilateral lower lung zones. Endotracheal tube tip a pproximately 3 cm above the jasmyn. NG tube tip in the stomach. Right IJ central line tip in the CC. No significant effusion or pneumothorax. Impression: 1: Persistent patchy bilateral airspace disease, compatible with pneumonia. Reviewed, dictated and finalized at location A. Impression: 1: Persistent patchy bilateral airspace disease, compatible with pneumonia.
--- NOTE | ~2021-05-13 | XR_ITS ---
XR chest 1V portable DATE: 05/14/2021 11:11 INDICATION: Right internal jugular catheter placement TECHNIQUE: Portable supine AP chest on 05/14/2021 at 1104 hours COMPARISON: 05/14/2021 portable AP chest at 0500 hours FINDINGS: Interval placement of right internal jugular central venous catheter, the tip overlying the upper right atrium. No pneumothorax or subcutaneous emphysema is evident. There is prominent infiltrate and/or atelectasis in the right lower lung. The left lung appears clear . No pleural effusion is evident. Normal heart size. ET tube and NG tube in satisfactory position. Status post left axillary node dissection. Diffuse osteopenia. IMPRESSION: Right internal jugular central venous catheter in right atrium; no evidence of pneumothor ax Persistent prominent right lower lung infiltrate and/or atelectasis Reviewed, dictated and finalized at location A. IMPRESSION: Right internal jugular central venous catheter in right atrium; no evidence of pneumothorax Persistent prominent right lower lung infiltrate and/or atelectasis
--- NOTE | ~2021-05-13 | XR_ITS ---
XR chest 1V portable DATE: 05/15/2021 05:33 INDICATION: Acute respiratory failure TECHNIQUE: Portable AP chest on 05/11/2021 at 0522 hours COMPARISON: 05/14/2021 portable AP chest at 1104 hours FINDINGS: ET tube in satisfactory position approximately 5 cm above jasmyn. NG tube in stomach. Right internal jugular central venous catheter tip overlies the caudal aspect of the superior vena ca va. Normal heart size. No hilar or mediastinal enlargement. There is patchy infiltrate in the right mid a nd lower lung zones, increased since 05/14/2021. Left mastectomy. Surgical clips, left axillary area. Diffuse osteopenia. IMPRESSION: Increased right mid and lower lung infiltrates since 05/14/2021 Reviewed, dictated and finalized at location A.
--- NOTE | ~2021-05-13 | CT_ITS ---
EXAMINATION: CT chest high resolution wo ks EXAM DATE: 05/16/2021 18:55 INDICATION: Bilateral infiltrates. Encephalopathy. TECHNIQUE: Spiral CT of the chest without contrast. Prior CT. Axial, coronal and sagittal images of the chest were reviewed. Coronal maximum intensity pixel images of chest reviewed. The dose-length product (DLP) for this examination was 179.93 mGy-cm. The exposure was tailored according to patient size (auto mA exposure control), and iterative reconstruction (ASIR) was used as additional dose red uction technique. Correlation is made to chest x-ray earlier same date. FINDINGS: Endotracheal tube and nasogastric tube are in expected positions. There is right lower lobe necrotic pneumonia with multi segmental involvement. Masslike cavitary region with fluid/debris allison uring 5.8 cm. Small amount of airspace disease in the right upper and middle lobes, and the left lowe r lobe. There are no pleural or pericardial effusions. There is large amount of fluid/debris withi n the lower lobe bronchi bilaterally. There is no mediastinal, hilar or axillary lymphadenopathy. There is no pneumothorax. Heart normal in size. There are sternotomy wires, and cardiac/coronary surgical changes. Correlate with prior history. Upper abdomen is unremarkable. There is thoracic s pondylosis without osteoblastic or osteolytic lesions identified. IMPRESSION: 1. Right lower lobe predominant multi segmental pneumonia with cavitary region probably necrosis. Un derlying cancer not totally excludable. 2. Large amount of fluid/debris in the lower lobe bronchi. 3. Tubes in position. Reviewed, dictated and finalized at location A. IMPRESSION: 1. Right lower lobe predominant multi segmental pneumonia with cavitary region probably necrosis. Underlying cancer not totally excludable. 2. Large amount of fluid/debris in the lower lobe bronchi. 3. Tubes in position.
--- NOTE | ~2021-05-13 | XR_ITS ---
XR chest 1V portable 05/17/2021 05:46 Indication: Acute respiratory failure Procedure: AP portable chest Comparison: Comparison to multiple prior studies sequentially, with oldest reviewed study dated 05/14. Findings: There is an enlarging cavitary lesion in the right perihilar location. There are patchy inf iltrates of the mid and lower lung zones. Endotracheal tube tip 4.8 cm above the jasmyn. NG tube in t he stomach. No pneumothorax. No acute osseous abnormality. There are surgical clips in the left axill a. Impression: 1: Patchy infiltrates of the mid and lower lung zones with enlarging cavitary lesion right midlung zo ne, likely pneumonia. Reviewed, dictated and finalized at location A. Impression: 1: Patchy infiltrates of the mid and lower lung zones with enlarging cavitary l esion right midlung zone, likely pneumonia.
[2021-05-13] MEDS: SODIUM CHLORIDE 0.9% IV 1,000 ML 999 ML IV CONT ×2 (09:45→09:49)
--- NOTE | 2021-05-13 09:47 | ECG_ITS ---
Measurements Intervals [place] Rate: 122 P: LA: 0 QRS: -46 QRSD: 105 T: 74 QT: 306 QTc: 436 Interpretive Statements SINUS TACHYCARDIA ATRIAL COUPLETS AND FREQUENT ATRIAL PREMATURE COMPLEXES LEFT AXIS DEVIATION DELAYED PRECORDIAL R/S TRANSITION PEAKED T WAVES- CONSIDER HYPERKALEMIA OR ISCHEMIA BASELINE WANDER- I, II, AVR, AVL, AVF ABNORMAL ECG Electronically Signed On 05-13-2021 11:46:43 CDT by Desmond De La Cruz D.O.
[2021-05-13 09:51] LABS: Glucose Point of Care 316 mg/dl (65-105)
--- NOTE | 2021-05-13 09:55 | ED.GENADULT ---
HPI - General Adult General Chief complaint: Altered Mental Status Stated complaint: unresponsive Time Seen by Provider: 05/13/21 09:46 Source: EMS Mode of arrival: EMS Limitations: altered mental status History of Present Illness HPI narrative: Patient is 80 years old white female brought to the emergency room by ambulance because of unresponsiveness, tachypneic and fever. I spoke to the patient nurse who is taking care of her at the care home. She told me that the patient was signed to her at 6 AM, went see him at 9 AM and found that the patient is unresponsive, and tachypneic. Then called 911. The nurse is telling me, this is the first time to take care of of the patient. I was able to get hold of the by the phone, who told me that the patient is full code and please do everything. Related Data Home Medications Medication Instructions Recorded Confirmed divalproex 1,000 mg PO HS 04/06/21 04/06/21 memantine 10 mg PO BID 04/06/21 04/06/21 Saccharomyces boulardii [Florastor] 250 mg PO BID 05/13/21 bisacodyl 10 mg RECTAL BID PRN 05/13/21 calcium carbonate PO BID 05/13/21 cholecalciferol (vitamin D3) 125 mcg PO DAILY 05/13/21 docusate sodium 100 mg PO BID 05/13/21 ergocalciferol (vitamin D2) 50,000 unit PO WEEKLY 05/13/21 ferrous sulfate [FeroSul] 110 mg PO BID 05/13/21 llhslhsjgnvq-usk-kmcg-FA-vit K tablet PO 05/13/21 [Adults Multivitamin] polyethylene glycol 3350 [Miralax] 17 g PO BID 05/13/21 sulfamethoxazole-trimethoprim 1 tablet PO Q12H 05/13/21 [Bactrim DS] Allergies Allergy/AdvReac Type Severity Reaction Status Date / Time No Known Allergies Allergy Verified 04/01/21 13:22 Review of Systems Review of Systems: ROS unobtainable: Yes unobtainable due to medical condition PMFSH Past Medical History Medical History Alzheimer disease Breast cancer CAD (coronary artery disease) Diabetes mellitus Hypothyroid Surgical History Surgical History H/O left mastectomy S/P CABG (coronary artery bypass graft) Family History Family History Other Unknown family medical history Social History Social History Smoking status: Never smoker Second hand tobacco smoke exposure: No Alcohol intake: never Substance use: never Substance use type: does not use Gender identity (if verbalized by the patient): Female Spiritual care concerns: No Agree to blood products: Yes Exam Narrative: Exam Narrative: General appearance: Well-developed, well-nourished Skin: Normal color Head: Normocephalic, nontraumatic Eyes: Clear conjunctiva ENT: Oropharynx normal, ears normal, nose normal Neck: Supple, nontender Chest and respiratory: Tachypneic Heart: Tachycardia, irregular irregularity Abdomen: Soft, nontender, no organomegaly, quiet bowel sounds Vascular: Normal peripheral pulses, normal capillary refill. Musculoskeletal: Unresponsive Neurologic: Unresponsive even to painful stimulation Course Course Emergency Course: Improving Vital Signs Vital signs: Vital Signs Temperature 37.6 C 05/13/21 09:50 Pulse Rate 119 H 05/13/21 09:50 Respiratory Rate 37 H 05/13/21 09:50 Blood Pressure 110/58 L 05/13/21 09:50 Pulse Oximetry 96 05/13/21 09:50 Temperature 37.6 C 05/13/21 09:50 Pulse Rate 119 H 05/13/21 09:50 Respiratory Rate 37 H 05/13/21 09:50 Blood Pressure 110/58 L 05/13/21 09:50 Pulse Oximetry 96 05/13/21 09:50 Procedures Intubation Intubation #1: Intub
[2021-05-13 10:03] LABS: Basophils Absolute Auto 0.1 K/mm3 (0.0-0.1); Basophils Percent Auto 0.8 % (0.2-1.2); Hematocrit 36.3 % (37.0-47.0); Hemoglobin 11.2 g/dL (12.0-15.0); Immature Granulocyte Percent A 0.6 % (0-0.5); Lymphocytes Absolute Auto 1.01 K/mm3 (0.9-3.2); Lymphocytes Percent Auto 6.5 % (18.3-44.2); Mean Corpuscular HGB Conc 30.9 g/dl (32-36); Mean Corpuscular Hemoglobin 29.2 pg (26-34); Mean Corpuscular Volume 94.8 fl (80-100); Mean Platelet Volume 10.1 fl (7.4-10.4); Monocytes Absolute Auto 0.6 K/mm3 (0.1-0.6); Monocytes Percent Auto 3.7 % (2.6-8.5); Neutrophils Absolute Auto 13.8 K/mm3 (1.3-6.7); Neutrophils Percent Auto 88.4 % (45.5-73.1); Nucleated Red Blood Cells Perc 0.1 % (0.0-0.2); Platelet Count Result 233 k/mm3 (150-375); Red Blood Count 3.83 M/mm3 (4.2-5.4); Red Cell Distribution Width 14.6 % (11.5-14.5); White Blood Count 15.7 K/mm3 (4.5-10.0)
[2021-05-13 10:12] LABS: INR 1.5; Prothrombin Time 17.4 Seconds (11.1-14.7)
[2021-05-13 10:13] LABS: Partial Thromboplastin Time 29.9 SECONDS (22.3-36.8)
--- NOTE | 2021-05-13 10:17 | PC.NURSE ---
Pt requiring emergent intubation. 2mg Versed and 100 succinylcholine given per EDP [facility] verbal order at 1016. Pt intubated with a 7.0mm tube at 1021, 22 to the lips with good color change via CO2 detector and bilateral breath sounds on auscultation.
[2021-05-13 10:18] LABS: Alveolar/Arterial O2 Gradient 82.6 mmHg; Base Excess ABG -6.7 mEq/l (+/-2.0); Device NASAL CANNULA; Fractional Inspired Oxygen 28 %; HCO3 ABG 16.9 mEq/l (22.0-26.0); Modified Allen's Test Pass; Oxygen Content ABG 15.2 %vol (16.0-22.0); Oxygen Saturation ABG 96.5 % (95.0-100.0); Oxyhemoglobin 93.7 % THb (90.0-100.0); PCO2 ABG 28.1 mmHg (35.0-45.0); PO2 ABG 83.9 mmHg (80.0-100.0); Site Drawn LEFT RADIAL; Total Hemoglobin 11.5 g/dL (12.0-18.0); pH ABG 7.397 (7.350-7.450)
[2021-05-13 10:18] LABS: Lactic Acid Reflex 3.8 mmol/L (0.7-2.1)
[2021-05-13 10:28] LABS: Add Urine Microscopic? YES; Amorphous Sediment Urine Moderate; Appearance Urine Turbid (Clear); Bacteria Urine 2+ /hpf; Bilirubin Urine Negative (Negative); Blood Urine Negative (Negative); Color Urine Yellow (Yellow); Glucose Urine UA Negative (Negative); Ketones Urine Negative (Negative); Leukocyte Esterase Ur 2+ LEU/UL (Negative); Mucus Urine Heavy /lpf; Nitrate Urine Negative (Negative); Protein Urine 3+ mg/dL (Negative); Specific Grav Ur 1.013 (1.001-1.035); Urobilinogen Urine Negative mg/dL (<2.0); WBC Urine >75 /hpf
[2021-05-13 10:42] LABS: Alanine Aminotransferase 24 U/L (4-35); Albumin Level 3.1 g/dL (3.5-5.1); Alkaline Phosphatase 113 U/L (38-126); Anion Gap 20 mmol/L (8-16); Aspartate Amino Transferase 61 U/L (14-36); Bilirubin,Total 0.8 mg/dL (0.2-1.3); Blood Urea Nitrogen > 120 mg/dL (7-17); Calcium 8.8 mg/dL (8.4-10.2); Carbon Dioxide 18 mmol/L (22-30); Chloride 117 mmol/L (98-107); Estimated CRCL calculation 7 ml/min; Estimated Glomerular Filt Rate 10; Glucose 360 mg/dL (65-110); Potassium 6.3 mmol/L (3.4-5.0); Sodium 155 mmol/L (137-145)
[2021-05-13] MEDS: SODIUM BICARBONATE 8.4% 50 MEQ/50 ML SYRINGE IV PUSH ×2 (11:07→15:31)
[2021-05-13] MEDS: CALCIUM CHLORIDE 1,000 MG/10 ML SYRINGE 1000 MG IV PUSH (11:07)
[2021-05-13] MEDS: SODIUM CHLORIDE 0.9% IV 1,000 ML 500 ML IV CONT (11:07)
[2021-05-13] MEDS: INSULIN HUMAN REGULAR (*BKC) 100 UNITS/ML 10 UNITS IV PUSH (11:07)
[2021-05-13 11:25] LABS: CRP 43.9 mg/dL (<1.0)
[2021-05-13 13:00] LABS: Reflex Lactic Acid Yes or No Add Lactic
--- NOTE | 2021-05-13 13:42 | ADMGEN ---
This patient, Sherie Amezcua, was admitted to Intensive Care Unit-11. Patient/family oriented to hospital policies and general routines including ID bracelet, bed and alarms, visiting hours, pain management, procedures, bathroom and other care routines, personal items, smoking policy, room service/diet, and visiting hours. Information on how to activate the Rapid Response Team has been discussed. Patient/Family are encouraged to report perceived risks to care and to ask questions if they do not understand what they are told or what they should do.
--- NOTE | 2021-05-13 13:47 | WPDCNINT ---
Assessment and Plan Assessment and plan (1) Severe sepsis: Code(s): A41.9 - Sepsis, unspecified organism; R65.20 - Severe sepsis without septic shock Status: Acute Assessment and Plan: patient presented with altered mental status, lactic acidosis, UTI - received 2.5 L of IV fluid in the ER, additional 500 mL of 5 fluids in the ICU - continue maintenance IV fluid - will recheck lactic acid - patient is not requiring pressors at this time blood pressures are stable - patient has been started on ceftriaxone - blood and urine cultures have been obtained and pending (2) Acute UTI: Code(s): N39.0 - Urinary tract infection, site not specified Status: Resolved Assessment and Plan: urine cultures have been obtained and pending, continue ceftriaxone (3) Acute kidney injury: Code(s): N17.9 - Acute kidney failure, unspecified Status: Acute Assessment and Plan: acute kidney injury likely related to dehydration, UTI, hypovolemia, severe sepsis - creatinine on admission was 4.40 ( on 04/06/2021 creatinine was 1.0) - received 3 L IV fluids continue maintenance IV fluids - monitor renal function, electrolytes and urine output (4) Type 2 diabetes mellitus with hyperglycemia: Code(s): E11.65 - Type 2 diabetes mellitus with hyperglycemia Status: Acute Assessment and Plan: patient presented to hyperglycemia, - started on high-dose sliding scale insulin Accu-Cheks (5) Hypernatremia: Code(s): E87.0 - Hyperosmolality and hypernatremia Status: Acute Assessment and Plan: likely related to hypovolemia, dehydration - patient has been given adequate amount of IV fluids - will recheck sodium level (6) Hyperkalemia: Code(s): E87.5 - Hyperkalemia Status: Acute Assessment and Plan: hyperkalemia likely related acute kidney injury - patient has been treated with calcium chloride, insulin and D50, sodium bicarb - will recheck potassium level (7) Dementia: Qualifiers: Dementia type: unspecified type Dementia behavioral disturbance: with behavioral disturbance Qualified Code(s): F03.91 - Unspecified dementia with behavioral disturbance Code(s): F03.90 - Unspecified dementia without behavioral disturbance Status: Acute Assessment and Plan: Alzheimer's dementia (8) DVT prophylaxis: Code(s): Z29.9 - Encounter for prophylactic measures, unspecified Status: Acute Assessment and Plan: DVT prophylaxis; heparin subcu stress ulcer prophylaxis: proton Additional Plan code status: Full code Critical care time spent:46 Minutes This dictation may have been done utilizing a voice recognition system. Attempts have been made to correct errors. However, there may be uncorrected grammatical, spelling, and recognition errors present. Due to a high probability of clinically significant, life threatening deterioration, the patient required my highest level of preparedness to intervene emergently and I personally spent this critical care time directly and personally managing the patient. This critical care time included obtaining a history; examining the patient; pulse oximetry; ordering and review of studies; arranging urgent treatment with development of a management plan; evaluation of patient's response to treatment; frequent reassessment; and discussions with other providers. It was exclusive of separately billable procedures and treating other patients and teaching time. Please see Assessment and Plan section and the rest of the note for further information on patient assessment and treatment Legal Records Manager Consult Note Consult date: 05/13/21 Time Seen: 13:16 HPI: Sherie Lopez Seven is a 80 year old female with past medical history of Alzheimer's disease, breast cancer with history of left mastectomy coronary artery disease with history of CABG,, diabetes, hypothyroidism presented to the
[2021-05-13 14:31] LABS: Alveolar/Arterial O2 Gradient 162.2 mmHg; Base Excess ABG -4.1 mEq/l (+/-2.0); Device VENTILATOR; Fractional Inspired Oxygen 40 %; HCO3 ABG 18.7 mEq/l (22.0-26.0); Modified Allen's Test Unable to perform; Oxygen Content ABG 14.3 %vol (16.0-22.0); Oxygen Saturation ABG 97.5 % (95.0-100.0); Oxyhemoglobin 94.8 % THb (90.0-100.0); Site Drawn LEFT RADIAL; Total Hemoglobin 10.6 g/dL (12.0-18.0); pH ABG 7.458 (7.350-7.450)
[2021-05-13 14:32] LABS: Arterial Blood Gas PEEP 5 cmH2O; Arterial Blood Gas Tidal Volume 300 ml; Arterial Blood Gas Vent Mode CMV; Arterial Blood Gas Ventilator rate 18 /MIN
--- NOTE | 2021-05-13 14:38 | WPDURCON ---
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 Given her mental and medical status I agree the chronic indwelling catheter with monthly changes is likely her best alternative. at this point, she is really not a candidate for intermittent catheterization. Poole catheter was replaced at bedside. Renal u/s to assess upper urinary tracts. Urology Consult Note HPI Date Seen: 05/13/21 Requesting Physician: García Valdez MD Primary Care Provider: Elvia Mccallum, Consult Narrative Narrative: Sherie Amezcua is a 80 year old female who was seen once in our practice approximately 3 weeks ago for urinary retention. She was wheelchair-bound at that point, precluding genital examination. Patient was unable to supply reliable history and had no family members who had reliable awareness of her condition. She did have an indwelling catheter at that point in decision was made, collectively, to simply manage her with a chronic Poole and monthly catheter changes. The catheter was last changed on April 20, 2021. She is admitted now after having been found unresponsive in febrile. She was intubated and has no family members currently available. Nursing staff removed her indwelling catheter and found, what sounds to be, marked encrustation at the tip. They were unable to replace the catheter. Review of Systems Review of Systems: ROS unobtainable: Yes unobtainable due to endotracheal tube, unobtainable due to medical condition and unobtainable due to mental status PMFSH Past Medical History Medical History (Updated 05/13/21 @ 14:02 by Umair Patel MD) Cancer of left breast Coronary artery disease Dementia Hypothyroid Type 2 diabetes mellitus Hemoglobin A1c was 5.5% in July 2020. Surgical History Surgical History (Updated 05/13/21 @ 13:50 by Jannet Whittaker PA-C) History of coronary artery bypass graft History of left mastectomy Family History Family History (Updated 05/13/21 @ 13:52 by Jannet Whittaker PA-C) Father Colon cancer Mother Colon cancer Daughter Breast cancer Sibling Lung cancer Social History Social History (Updated 05/13/21 @ 13:53 by Jannet Whittaker PA-C) Social History: Surrogate decision maker: Rk Amezcua, . Code status: Full code. Smoking status: Never smoker Alcohol intake: unknown Substance use: unknown Substance use type: unknown Additional living arrangements comments: Lives in [place] with her . Currently at a senior care facility. Additional occupation/education comments: Retired. Spiritual care concerns: No Meds Home Medications and Allergies Home Medications Medication Instructions Recorded Confirmed Type divalproex 1,000 mg PO HS 04/06/21 04/06/21 History memantine 10 mg PO BID 04/06/21 04/06/21 History Saccharomyces boulardii [Florastor] 250 mg PO BID 05/13/21 History bisacodyl 10 mg RECTAL BID PRN 05/13/21 History calcium carbonate PO BID 05/13/21 History cholecalciferol (vitamin D3) 125 mcg PO DAILY 05/13/21 History docusate sodium 100 mg PO BID 05/13/21 History ergocalciferol (vitamin D2) 50,000 unit PO WEEKLY 05/13/21 History ferrous sulfate [FeroSul] 110 mg PO BID 05/13/21 History taiecfoupaeh-jwm-spet-FA-vit K tablet PO 05/13/21 History [Adults Multivitamin] polyethylene glycol 3350 [Miralax] 17 g PO BID 05/13/21 History sulfamethoxazole-trimethoprim 1 tablet PO Q12H 05/13/21 History [Bactrim DS] Allergies Allergy/AdvReac Type Severity Reaction Status Date / Time No Known Allergies Allergy Verified 05/13/21 13:49 Vital Signs Vital Signs - 24 hr 05/13/21 09:50 05/13/21 09:53 05/13/21 10:06 Temperature 99.6 F Pulse Rate 119 H 119 H 107 H Respiratory Rate 37 H 37 H 31 H Blood Pressure 110/58 L Pulse Oximetry 96 97 96 05/13/21 10:18 05/13/21 10:19 05/13/21 10:24 Temperature Pulse
[2021-05-13 14:55] LABS: Glucose Point of Care 228 mg/dl (65-105)
[2021-05-13 15:20] LABS: Hematocrit 26.5 % (37.0-47.0); Hemoglobin 7.8 g/dL (12.0-15.0); Mean Corpuscular HGB Conc 29.4 g/dl (32-36); Mean Corpuscular Hemoglobin 29.3 pg (26-34); Mean Corpuscular Volume 99.6 fl (80-100); Platelet Count Result 128 k/mm3 (150-375); Red Blood Count 2.66 M/mm3 (4.2-5.4); Red Cell Distribution Width 14.7 % (11.5-14.5)
[2021-05-13 15:30] LABS: Lactic Acid Reflex 2.2 mmol/L (0.7-2.1)
--- NOTE | 2021-05-13 15:30 | PM.IMHP ---
H&P: HPI History of Present Illness Date/Time: 05/13/21 15:30 Chief Complaint: Unresponsive. Narrative: This is an 80-year-old female with dementia, hypertension, type 2 diabetes mellitus, hypothyroidism, coronary artery disease status post bypass, and history of breast cancer presented to the emergency department earlier today via EMS from [facility] for evaluation after she was found unresponsive. At this time the patient is sedated, intubated, and is unable to provide history and as such a majority of the following is obtained via a review of her electronic medical records as well as discussions with her . According to EMS documentation they were called after the patient was found unresponsive by staff at the alf [facility]. Unfortunately staff caring for her today did not know much in the way of her history and could not provide any information as to how she has been doing recently or when she was last seen in her usual state. She was noted to have a Poole catheter in place and it looks like she was seen at the urology clinic about 3 weeks ago with urinary retention at which time the decision was made to simply manage her with a chronic Poole catheter to be changed each month, last being on 04/20/2021. It is my understanding that the patient is currently on antibiotics for a reported urinary tract infection. When staff went to change out her Poole catheter the tip was encrusted and the catheter need to be placed by Dr. Hood. Currently the patient is sedated but will open her eyes though she does not follow commands. Review of Systems Review of Systems: Narrative: Unable to obtain given current clinical condition as detailed above. [facility] Past Medical History Medical History Cancer of left breast Coronary artery disease Dementia Hypothyroid Type 2 diabetes mellitus Hemoglobin A1c was 5.5% in July 2020. Surgical History Surgical History History of coronary artery bypass graft History of left mastectomy Family History Family History Father Colon cancer Mother Colon cancer Daughter Breast cancer Sibling Lung cancer Social History Social History Social History: Surrogate decision maker: Rk Amezcua, . Code status: Full code. Smoking status: Never smoker Alcohol intake: unknown Substance use: unknown Substance use type: unknown Additional living arrangements comments: Lives in [place] with her . Currently at a alf facility. Additional occupation/education comments: Retired. Spiritual care concerns: No Meds Home Medications and Allergies Home Medications Medication Instructions Recorded Confirmed Type divalproex 1,000 mg PO HS 04/06/21 05/13/21 History memantine 10 mg PO BID 04/06/21 05/13/21 History Saccharomyces boulardii [Florastor] 250 mg PO BID 05/13/21 05/13/21 History bisacodyl 10 mg RECTAL Q12H PRN 05/13/21 05/13/21 History calcium carbonate 1 mg PO BID PRN 05/13/21 05/13/21 History cholecalciferol (vitamin D3) 125 mcg PO DAILY 05/13/21 05/13/21 History docusate sodium 100 mg PO BID 05/13/21 05/13/21 History ergocalciferol (vitamin D2) 50,000 unit PO MOWEFR 05/13/21 05/13/21 History ferrous sulfate [FeroSul] 110 mg PO BID 05/13/21 05/13/21 History vatsyteujxzh-znk-tcft-FA-vit K 1 tablet PO DAILY 05/13/21 05/13/21 History [Adults Multivitamin] polyethylene glycol 3350 [Miralax] 17 g PO BID 05/13/21 05/13/21 History sulfamethoxazole-trimethoprim 1 tablet PO Q12H 05/13/21 05/13/21 History [Bactrim DS] Allergies Allergy/AdvReac Type Severity Reaction Status Date / Time No Known Allergies Allergy Verified 05/13/21 13:49 Vital Signs Vital Signs - 24 hr 05/13/21 09:50 05/13/21 09:53 04/23
[2021-05-13] MEDS: PANTOPRAZOLE SODIUM IV 40 MG VIAL IV PUSH (15:31)
[2021-05-13] MEDS: SODIUM CHLORIDE 0.9% IV 1,000 ML 100 ML IV CONT (15:32)
[2021-05-13 15:40] LABS: Band Neutrophils Percent 16 % (0-6); Lymphocytes Absolute Manual 1.69 K/mm3 (1.1-4.5); Monocytes Absolute Manual 0.13 K/mm3 (0.1-0.90); Monocytes Percent Manual 1 % (3-9); Neutrophils Absolute Manual 11.18 K/mm3 (1.7-7.2); Neutrophils Percent Manual 70 % (46-73); Total Cells Counted 100
[2021-05-13 15:41] LABS: Anisocytosis 1+ (NORMAL); Hypochromasia 1+ (NORMAL)
[2021-05-13 16:13] LABS: Hematocrit 30.3 % (37.0-47.0); Hemoglobin 9.5 g/dL (12.0-15.0); Mean Corpuscular HGB Conc 31.4 g/dl (32-36); Mean Corpuscular Hemoglobin 29.7 pg (26-34); Mean Corpuscular Volume 94.7 fl (80-100); Mean Platelet Volume 10.3 fl (7.4-10.4); Platelet Count Result 169 k/mm3 (150-375); Red Cell Distribution Width 14.6 % (11.5-14.5); White Blood Count 12.1 K/mm3 (4.5-10.0)
[2021-05-13 16:34] LABS: Band Neutrophils Percent 13 % (0-6); Lymphocytes Absolute Manual 1.93 K/mm3 (1.1-4.5); Monocytes Absolute Manual 0.48 K/mm3 (0.1-0.90); Monocytes Percent Manual 4 % (3-9); Neutrophils Absolute Manual 9.68 K/mm3 (1.7-7.2); Neutrophils Percent Manual 67 % (46-73); Nucleated Red Blood Cells 1 %; Total Cells Counted 100
[2021-05-13 16:35] LABS: Anisocytosis 1+ (NORMAL); Hypochromasia 1+ (NORMAL); Platelet Estimate Adequate (Adequate)
[2021-05-13 16:40] LABS: Alanine Aminotransferase 19 U/L (4-35); Albumin Level 2.4 g/dL (3.5-5.1); Alkaline Phosphatase 81 U/L (38-126); Anion Gap 12 mmol/L (8-16); Aspartate Amino Transferase 48 U/L (14-36); Bilirubin,Total 1.1 mg/dL (0.2-1.3); Blood Urea Nitrogen > 120 mg/dL (7-17); Calcium 8.4 mg/dL (8.4-10.2); Carbon Dioxide 20 mmol/L (22-30); Chloride 123 mmol/L (98-107); Estimated CRCL calculation 12 ml/min; Estimated Glomerular Filt Rate 17; Glucose 315 mg/dL (65-110); Potassium 4.2 mmol/L (3.4-5.0); Sodium 155 mmol/L (137-145)
[2021-05-13] MEDS: INSULIN ASPART (*BKC) 100 UNITS/ML SUB-Q (16:51)
[2021-05-13] MEDS: SODIUM CHLORIDE 0.9% IV 500 ML 999 ML IV CONT (16:52)
[2021-05-13 17:09] LABS: Eosinophil Urine None Seen % (None Seen)
[2021-05-13 17:38] LABS: Potassium Urine Random 47.6 meq/L; Sodium Urine Random 69 meq/L
[2021-05-13 19:16] LABS: Magnesium 2.6 mg/dL (1.6-2.3)
[2021-05-13] MEDS: HEPARIN SODIUM 5,000 UNITS/ML VIAL 5000 UNITS SUB-Q (21:19)
[2021-05-13] MEDS: LACTATED RINGERS 1,000 ML 100 ML IV CONT (21:27)
[2021-05-13 21:48] LABS: Hemoglobin A1C 7.2 % (<5.7)
[2021-05-14] VITALS (20 sets, daily range): BP systolic 100–146; BP diastolic 45–92; PULSE 70–135; RESP 16–24; TEMP 34.6–36.9; O2SAT 92–100
[2021-05-14] MEDS: INSULIN ASPART (*BKC) 100 UNITS/ML SUB-Q ×3 (00:23→18:12)
[2021-05-14 00:27] LABS: Glucose Point of Care 258 mg/dl (65-105)
[2021-05-14 03:49] LABS: Alveolar/Arterial O2 Gradient 162.2 mmHg; Base Excess ABG -2.1 mEq/l (+/-2.0); Carboxyhemoglobin 0.3 % THb (0-2.0); Device VENTILATOR; Fractional Inspired Oxygen 40 %; Methemoglobin ABG 0.3 %THb (0-1.5); Modified Allen's Test Pass; Oxygen Content ABG 14.4 %vol (16.0-22.0); Oxygen Saturation ABG 97.8 % (95.0-100.0); Oxyhemoglobin 95.1 % THb (90.0-100.0); PCO2 ABG 26.2 mmHg (35.0-45.0); PO2 ABG 92.9 mmHg (80.0-100.0); PO2 FiO2 Ratio Arterial Blood 2.32 %; Reduced Hemoglobin 4.3 %THb (0-5.0); Site Drawn LEFT RADIAL; Total Hemoglobin 10.7 g/dL (12.0-18.0)
[2021-05-14 03:50] LABS: Arterial Blood Gas PEEP 5 cmH2O; Arterial Blood Gas Tidal Volume 330 ml; Arterial Blood Gas Vent Mode CMV; Arterial Blood Gas Ventilator rate 18 /MIN
--- NOTE | 2021-05-14 06:26 | WPDUROPN2 ---
Progress Note: A&P Assessment and Plan (1) Urinary retention: Code(s): R33.9 - Retention of urine, unspecified Status: Acute Additional Plan Catheter draining well, urine clear. Morning labs pending. I would anticipate improvement in her renal function Renal ultrasound shows no hydronephrosis. Subjective Subjective Date/Time Seen: 05/14/21 06:26 Ventilated Exam Const: General: no acute distress Resp: Effort & Inspection: normal respiratory effort GI: Inspection: non-distended GI Palp: No abdominal tenderness and No Guarding due to palpation present (GI) Auscultation: normal bowel sounds Urinary Catheter: Urinary Catheter: patent and draining and urine clear Objective Data Vital Signs Vital Signs: Vital Signs - 24 hr 05/13/21 09:50 05/13/21 09:53 05/13/21 10:06 Temperature 99.6 F Pulse Rate 119 H 119 H 107 H Respiratory Rate 37 H 37 H 31 H Blood Pressure 110/58 L Pulse Oximetry 96 97 96 05/13/21 10:18 05/13/21 10:19 05/13/21 10:24 Temperature Pulse Rate 114 H 113 H Respiratory Rate 20 35 H 40 H Blood Pressure 87/62 L Pulse Oximetry 98 100 05/13/21 10:30 05/13/21 10:50 05/13/21 11:21 Temperature Pulse Rate 112 H 109 H Respiratory Rate 22 H Blood Pressure 132/78 Pulse Oximetry 99 100 100 05/13/21 11:51 05/13/21 12:50 05/13/21 13:19 Temperature Pulse Rate 113 H 101 H 98 Respiratory Rate 20 20 Blood Pressure 142/84 H 140/81 Pulse Oximetry 98 100 97 05/13/21 14:00 05/13/21 16:00 05/13/21 17:14 Temperature 97.6 F Pulse Rate 96 96 86 Respiratory Rate 20 18 Blood Pressure 147/73 H 118/74 Pulse Oximetry 98 97 98 05/13/21 18:00 05/13/21 20:00 05/13/21 20:20 Temperature 97.2 F L Pulse Rate 94 88 89 Respiratory Rate 18 18 Blood Pressure 141/72 H 123/80 Pulse Oximetry 97 95 97 05/13/21 22:00 05/13/21 23:00 05/14/21 00:00 Temperature 97.3 F L Pulse Rate 81 74 70 Respiratory Rate 18 18 Blood Pressure 135/70 119/61 Pulse Oximetry 96 96 98 05/14/21 02:00 05/14/21 04:00 05/14/21 05:10 Temperature 97.2 F L Pulse Rate 81 80 82 Respiratory Rate 18 18 Blood Pressure 143/79 H 146/74 H Pulse Oximetry 98 97 92 Intake/Output Intake/Output: Intake & Output 05/11/21 05/12/21 05/13/21 05/14/21 23:59 23:59 23:59 23:59 Intake Total 2100 Output Total 1000 Balance 1100 Meds/Results Medications: Active Medications Generic Name Dose Route Start Last Admin Trade Name Freq PRN Reason Stop Dose Admin Dextrose 12.5 gm 05/13/21 13:51 Dextrose 50% 25 Gm/50 Ml Syringe IV PUSH PRN PRN Hypoglycemia Protocol Glucagon 1 mg 05/13/21 13:51 Glucagon For Inj 1 Mg Vial IM PRN PRN Hypoglycemia Protocol Glucose 15 gm 05/13/21 13:51 Glucose Oral Gel 15 Gm Of Glucse In 37.5 Gm Tube PO PRN PRN Hypoglycemia Protocol Heparin Sodium (Porcine) 5,000 units 05/13/21 21:00 05/13/21 21:19 Heparin Sodium 5,000 Units/Ml Vial SUB-Q 5,000 units Q12HR LOLITA Administration Acetaminophen 1,000 mg in 100 mls @ 400 mls/hr 05/13/21 11:13 Ofirmev 1,000 Mg Ivpb IVPB 05/14/21 11:14 Q6H PRN Mild Pain (1-3) or Fever Dextrose 1,000 mls @ 100 mls/hr 05/13/21 13:51 Dextrose 5% 1,000 Ml IVPB PRN PRN Hypoglycemia Protocol Ceftriaxone Sodium/Dextrose 1 gm in 50 mls @ 100 mls/hr 05/14/21 09:00 Rocephin 1 Gm/D5w 50 Ml IVPB Q24H LOLITA Vancomycin HCl 750 mg in 250 mls @ 250 mls/hr 05/13/21 14:47 Vancomycin 750 Mg/D5w 250 Ml IVPB PRN PRN PHARMACY PROTOCOL Lactated Ringer's 1,000 mls @ 100 mls/hr 05/13/21 21:20 05/13/21 21:27 Lr - Lactated Ringers Iv IV CONT 100 mls/hr .Q10H LOLITA Administration Insulin Aspart 4 - 8 units 05/14/21 00:00 05/14/21 00:23 Insulin Aspart (*Bkc) 100 Units/Ml SUB-Q 5 units Q6H LOLITA Administration Protocol Pantoprazole Sodium 40 mg 05/13/21 14:05 05/13/21 15:31
--- NOTE | 2021-05-14 06:42 | P.CDI_ITS ---
CDI Query Clarification Request -UTI has been documented -Indwelling rios catheter has been documented Please clarify if UTI is: * Due to/associated with indwelling rios catheter * Not due to/associated with indwelling rios catheter * Unable to determine <Yamileth Jimenes RN - Last Filed: 05/14/21 12:09>
--- NOTE | 2021-05-14 06:42 | WPDCDIQUERY2 ---
CDI Query Clarification Request -UTI has been documented -Indwelling rios catheter has been documented Please clarify if UTI is: Due to/associated with indwelling rios catheter Not due to/associated with indwelling rios catheter Unable to determine <Yamileth Jimenes RN - Last Filed: 05/14/21 12:09>
[2021-05-14 06:57] LABS: Basophils Percent Auto 0.2 % (0.2-1.2); Hematocrit 34.5 % (37.0-47.0); Hemoglobin 10.7 g/dL (12.0-15.0); Immature Granulocyte Absolute 0.06 K/mm3 (0.00-0.031); Immature Granulocyte Percent A 0.5 % (0-0.5); Lymphocytes Absolute Auto 1.68 K/mm3 (0.9-3.2); Lymphocytes Percent Auto 13.6 % (18.3-44.2); Mean Corpuscular Hemoglobin 29.5 pg (26-34); Mean Platelet Volume 10.3 fl (7.4-10.4); Monocytes Absolute Auto 0.5 K/mm3 (0.1-0.6); Monocytes Percent Auto 4.3 % (2.6-8.5); Neutrophils Absolute Auto 10.1 K/mm3 (1.3-6.7); Neutrophils Percent Auto 81.4 % (45.5-73.1); Platelet Count Result 172 k/mm3 (150-375); Red Blood Count 3.63 M/mm3 (4.2-5.4); Red Cell Distribution Width 14.6 % (11.5-14.5); White Blood Count 12.4 K/mm3 (4.5-10.0)
[2021-05-14 07:06] LABS: Lactic Acid Reflex 2.5 mmol/L (0.7-2.1)
[2021-05-14 07:24] LABS: Alanine Aminotransferase 19 U/L (4-35); Albumin Level 2.5 g/dL (3.5-5.1); Alkaline Phosphatase 94 U/L (38-126); Anion Gap 7 mmol/L (8-16); Aspartate Amino Transferase 34 U/L (14-36); Bilirubin,Total 0.6 mg/dL (0.2-1.3); Blood Urea Nitrogen 110 mg/dL (7-17); Calcium 9.1 mg/dL (8.4-10.2); Carbon Dioxide 24 mmol/L (22-30); Chloride 129 mmol/L (98-107); Estimated CRCL calculation 15 ml/min; Estimated Glomerular Filt Rate 23; Glucose 176 mg/dL (65-110); Magnesium 2.7 mg/dL (1.6-2.3); Phosphorus 3.7 mg/dL (2.5-4.5); Potassium 3.6 mmol/L (3.4-5.0); Sodium 160 mmol/L (137-145)
[2021-05-14] MEDS: LACTATED RINGERS 1,000 ML 100 ML IV CONT (07:27)
[2021-05-14] MEDS: PANTOPRAZOLE SODIUM IV 40 MG VIAL IV PUSH (08:10)
[2021-05-14] MEDS: HEPARIN SODIUM 5,000 UNITS/ML VIAL 5000 UNITS SUB-Q ×2 (08:10→21:23)
[2021-05-14] MEDS: SODIUM CHLORIDE 0.45% 1,000 ML 100 ML IV CONT ×2 (09:27→18:45)
[2021-05-14 09:50] LABS: Reflex Lactic Acid Yes or No Add Lactic
[2021-05-14 09:58] LABS: Anion Gap 9 mmol/L (8-16); Blood Urea Nitrogen 106 mg/dL (7-17); Calcium 9.2 mg/dL (8.4-10.2); Carbon Dioxide 23 mmol/L (22-30); Chloride 129 mmol/L (98-107); Estimated CRCL calculation 15 ml/min; Estimated Glomerular Filt Rate 24; Glucose 189 mg/dL (65-110); Potassium 3.7 mmol/L (3.4-5.0); Sodium 161 mmol/L (137-145)
[2021-05-14] MEDS: LIDOCAINE HCL 1% LOCAL INJ 2 ML AMPUL 5 ML INFILTRATE (10:45)
[2021-05-14 10:47] LABS: CRP 41.2 mg/dL (<1.0)
[2021-05-14 11:21] LABS: Glucose Point of Care 207 mg/dl (65-105)
--- NOTE | 2021-05-14 11:27 | PCDIET ---
Nutrition Follow-Up Complete: Nutrition Diagnosis: Inadequate oral intake related to oral intubation as evidenced by NPO status. Nutrition Goal: Patient to meet estimated nutritional needs. Goal not met. NG tube to low intermittent suction. Bowel sounds hyperactive, per RN. Discussed during rounds. Recommend Glucerna 1.2 beginning at 20mL/hr and advancing by 10mL/hr every 4-6 hours, as tolerated, to goal of 45mL/hr. Given 22 hour/day infusion, this will provide 1188kcal, 59g protein and 796mL free water. Suggest 150mL water flush every 4 hours with tapering of IV fluids, when able. Last recorded weight is 52.7 kg which is slightly decreased from last review. +I/O. Bowel Motility: No documented BM. Labs Reviewed: WBC (12.4), RBC (3.63), Hgb (10.7), Hct (34.5), Glu (176), BUN (110), Cr (2.1), Na (160), Alb (2.5), Cl (129), Mg (2.7) Meds Noted: Rocephin, Vancomycin, Protonix, 0.45NaCl at 100mL/hr Additional Notes: Buttocks reddened, per RN. Will continue to monitor with same goal. Nutrition Monitoring and Evaluation: Follow up every 3 days. Follow daily in ICU rounds.
[2021-05-14 12:03] LABS: Lactic Acid 1.7 mmol/L (0.7-2.1)
[2021-05-14 12:05] LABS: Anion Gap 8 mmol/L (8-16); Blood Urea Nitrogen 102 mg/dL (7-17); Calcium 8.7 mg/dL (8.4-10.2); Carbon Dioxide 23 mmol/L (22-30); Chloride 128 mmol/L (98-107); Estimated CRCL calculation 17 ml/min; Estimated Glomerular Filt Rate 27; Glucose 215 mg/dL (65-110); Potassium 3.3 mmol/L (3.4-5.0); Sodium 159 mmol/L (137-145)
--- NOTE | 2021-05-14 14:09 | WPDINTPN ---
Progress Note: A&P Assessment and Plan (1) Severe sepsis: Code(s): A41.9 - Sepsis, unspecified organism; R65.20 - Severe sepsis without septic shock Status: Acute Assessment and Plan: patient presented with altered mental status, lactic acidosis, UTI - received a total of 3 L of IV fluids - continue maintenance IV fluid - lactic acid has normalized - patient is not requiring pressors at this time blood pressures are stable - continue ceftriaxone ( initiated on 05/13) - blood cultures negative x2 so far - urine cultures pending (2) Acute UTI: Code(s): N39.0 - Urinary tract infection, site not specified Status: Resolved Assessment and Plan: urine cultures have been obtained and pending, continue ceftriaxone (3) Acute kidney injury: Code(s): N17.9 - Acute kidney failure, unspecified Status: Acute Assessment and Plan: acute kidney injury likely related to dehydration, UTI, hypovolemia, severe sepsis - creatinine on admission was 4.40 ( on 04/06/2021 creatinine was 1.0) - received 3 L IV fluids continue maintenance IV fluids - continue maintenance IV fluids - creatinine improving, 1.8 this morning - monitor renal function, electrolytes and urine output (4) Type 2 diabetes mellitus with hyperglycemia: Code(s): E11.65 - Type 2 diabetes mellitus with hyperglycemia Status: Acute Assessment and Plan: patient presented to hyperglycemia, - on high-dose sliding scale insulin Accu-Cheks (5) Hypernatremia: Code(s): E87.0 - Hyperosmolality and hypernatremia Status: Acute Assessment and Plan: likely related to hypovolemia, dehydration - patient has been given adequate amount of IV fluids - switched maintenance IV fluids to 0.45% saline - serial BMPs to monitor sodium levelsl (6) Hyperkalemia: Code(s): E87.5 - Hyperkalemia Status: Acute Assessment and Plan: hyperkalemia likely related acute kidney injury - patient has been treated with calcium chloride, insulin and D50, sodium bicarb - repeat potassium levels 3.3 this morning (7) Dementia: Qualifiers: Dementia type: unspecified type Dementia behavioral disturbance: with behavioral disturbance Qualified Code(s): F03.91 - Unspecified dementia with behavioral disturbance Code(s): F03.90 - Unspecified dementia without behavioral disturbance Status: Acute Assessment and Plan: Alzheimer's dementia (8) DVT prophylaxis: Code(s): Z29.9 - Encounter for prophylactic measures, unspecified Status: Acute Assessment and Plan: DVT prophylaxis; heparin subcu stress ulcer prophylaxis: Protonix Additional Plan discussed with patient's spouse, updated him with patient's condition and plan of care. I discussed with patient's regarding the code status and he and his son and daughter have requested her to be a DNR code status: Full code Critical care time spent: 37 Minutes This dictation may have been done utilizing a voice recognition system. Attempts have been made to correct errors. However, there may be uncorrected grammatical, spelling, and recognition errors present. Due to a high probability of clinically significant, life threatening deterioration, the patient required my highest level of preparedness to intervene emergently and I personally spent this critical care time directly and personally managing the patient. This critical care time included obtaining a history; examining the patient; pulse oximetry; ordering and review of studies; arranging urgent treatment with development of a management plan; evaluation of patient's response to treatment; frequent reassessment; and discussions with other providers. It was exclusive of separately billable procedures and treating other patients and teaching time. Please see Assessment and Plan section and the rest of the note for further information on patient
--- NOTE | 2021-05-14 14:55 | PM.IMPN ---
Progress Note: A&P Assessment and Plan (1) Severe sepsis: Code(s): A41.9 - Sepsis, unspecified organism; R65.20 - Severe sepsis without septic shock Status: Acute Assessment and Plan: ON VENTILATOR SUPPORT STILL OFF OF VASOPRESSOR patient presented with altered mental status, lactic acidosis, UTI - received a total of 3 L of IV fluids - continue maintenance IV fluid - lactic acid has normalized - patient is not requiring pressors at this time blood pressures are stable - continue ceftriaxone ( initiated on 05/13) - blood cultures negative x2 so far - urine cultures pending (2) Acute UTI: Code(s): N39.0 - Urinary tract infection, site not specified Status: Resolved Assessment and Plan: urine cultures have been obtained and pending, continue ceftriaxone (3) Acute kidney injury: Code(s): N17.9 - Acute kidney failure, unspecified Status: Acute Assessment and Plan: acute kidney injury likely related to dehydration, UTI, hypovolemia, severe sepsis - creatinine on admission was 4.40 ( on 04/06/2021 creatinine was 1.0) - received 3 L IV fluids continue maintenance IV fluids - continue maintenance IV fluids - creatinine improving, 1.8 this morning - monitor renal function, electrolytes and urine output (4) Type 2 diabetes mellitus with hyperglycemia: Code(s): E11.65 - Type 2 diabetes mellitus with hyperglycemia Status: Acute Assessment and Plan: patient presented to hyperglycemia, - on high-dose sliding scale insulin Accu-Cheks (5) Hypernatremia: Code(s): E87.0 - Hyperosmolality and hypernatremia Status: Acute Assessment and Plan: DOWN TRENDING CONTINUE TO MONITOR likely related to hypovolemia, dehydration - patient has been given adequate amount of IV fluids - switched maintenance IV fluids to 0.45% saline - serial BMPs to monitor sodium levelsl (6) Hyperkalemia: Code(s): E87.5 - Hyperkalemia Status: Acute Assessment and Plan: RESOLVED CONTINUE TO MONITOR hyperkalemia likely related acute kidney injury - patient has been treated with calcium chloride, insulin and D50, sodium bicarb - repeat potassium levels 3.3 this morning (7) Dementia: Qualifiers: Dementia behavioral disturbance: with behavioral disturbance Dementia type: unspecified type Qualified Code(s): F03.91 - Unspecified dementia with behavioral disturbance Code(s): F03.90 - Unspecified dementia without behavioral disturbance Status: Acute Assessment and Plan: Alzheimer's dementia (8) DVT prophylaxis: Code(s): Z29.9 - Encounter for prophylactic measures, unspecified Status: Acute Assessment and Plan: DVT prophylaxis; heparin subcu stress ulcer prophylaxis: Protonix Additional Plan CRITICAL CARE GROUND MIXER NOTE REVIEWED discussed with patient's spouse, updated him with patient's condition and plan of care. I discussed with patient's regarding the code status and he and his son and daughter have requested her to be a DNR code status: Full code Critical care time spent: 37 Minutes This dictation may have been done utilizing a voice recognition system. Attempts have been made to correct errors. However, there may be uncorrected grammatical, spelling, and recognition errors present. Due to a high probability of clinically significant, life threatening deterioration, the patient required my highest level of preparedness to intervene emergently and I personally spent this critical care time directly and personally managing the patient. This critical care time included obtaining a history; examining the patient; pulse oximetry; ordering and review of studies; arranging urgent treatment with development of a management plan; evaluation of patient's response to treatment; frequent reassessment; and discussions with other providers. It was exclusive of [facility]
[2021-05-14] MEDS: CENTRAL LINE FLUSH 10 ML IV PUSH ×3 (15:16→21:24)
[2021-05-14] MEDS: hetaSTARCH 6%/NACL 500 ML 250 ML IV CONT (15:19)
[2021-05-14 16:50] LABS: Anion Gap 10 mmol/L (8-16); Blood Urea Nitrogen 101 mg/dL (7-17); Calcium 8.5 mg/dL (8.4-10.2); Carbon Dioxide 21 mmol/L (22-30); Chloride 130 mmol/L (98-107); Estimated CRCL calculation 13 ml/min; Estimated Glomerular Filt Rate 20; Glucose 255 mg/dL (65-110); Potassium 3.8 mmol/L (3.4-5.0); Sodium 161 mmol/L (137-145)
[2021-05-14 18:11] LABS: Glucose Point of Care 212 mg/dl (65-105)
[2021-05-14 21:27] LABS: Anion Gap 7 mmol/L (8-16); Blood Urea Nitrogen 98 mg/dL (7-17); Calcium 8.1 mg/dL (8.4-10.2); Carbon Dioxide 23 mmol/L (22-30); Chloride 129 mmol/L (98-107); Estimated CRCL calculation 16 ml/min; Estimated Glomerular Filt Rate 25; Glucose 206 mg/dL (65-110); Potassium 3.3 mmol/L (3.4-5.0); Sodium 159 mmol/L (137-145)
[2021-05-14 23:46] LABS: Glucose Point of Care 180 mg/dl (65-105)
[2021-05-15] VITALS (21 sets, daily range): BP systolic 102–135; BP diastolic 55–68; PULSE 85–117; RESP 14–33; TEMP 36.2–37.1; O2SAT 97–100
[2021-05-15 01:06] LABS: Anion Gap 5 mmol/L (8-16); Blood Urea Nitrogen 93 mg/dL (7-17); Calcium 7.9 mg/dL (8.4-10.2); Carbon Dioxide 23 mmol/L (22-30); Chloride 130 mmol/L (98-107); Estimated CRCL calculation 17 ml/min; Estimated Glomerular Filt Rate 27; Glucose 199 mg/dL (65-110); Potassium 3.5 mmol/L (3.4-5.0); Sodium 158 mmol/L (137-145)
[2021-05-15] MEDS: SODIUM CHLORIDE 0.45% 1,000 ML 100 ML IV CONT ×2 (04:52→15:11)
[2021-05-15 04:53] LABS: Hematocrit 26.9 % (37.0-47.0); Hemoglobin 8.2 g/dL (12.0-15.0); Mean Corpuscular HGB Conc 30.5 g/dl (32-36); Mean Corpuscular Hemoglobin 29.5 pg (26-34); Mean Corpuscular Volume 96.8 fl (80-100); Mean Platelet Volume 10.7 fl (7.4-10.4); Platelet Count Result 109 k/mm3 (150-375); Red Blood Count 2.78 M/mm3 (4.2-5.4); Red Cell Distribution Width 14.8 % (11.5-14.5)
[2021-05-15] MEDS: CENTRAL LINE FLUSH 10 ML IV PUSH ×4 (04:53→20:00)
[2021-05-15 05:16] LABS: Lactic Acid Reflex 1.5 mmol/L (0.7-2.1)
[2021-05-15 05:23] LABS: Alveolar/Arterial O2 Gradient 80.8 mmHg; Base Excess ABG -1.9 mEq/l (+/-2.0); Carboxyhemoglobin 0.3 % THb (0-2.0); Fractional Inspired Oxygen 30 %; HCO3 ABG 21.3 mEq/l (22.0-26.0); Methemoglobin ABG 0.4 %THb (0-1.5); Oxygen Content ABG 8.4 %vol (16.0-22.0); Oxyhemoglobin 95.4 % THb (90.0-100.0); PCO2 ABG 28.7 mmHg (35.0-45.0); PO2 ABG 99.4 mmHg (80.0-100.0); PO2 FiO2 Ratio Arterial Blood 3.31 %; Reduced Hemoglobin 3.9 %THb (0-5.0); pH ABG 7.488 (7.350-7.450)
[2021-05-15 05:26] LABS: Device VENTILATOR; Modified Allen's Test Pass; Site Drawn RIGHT RADIAL; Total Hemoglobin 6.1 g/dL (12.0-18.0)
[2021-05-15 05:27] LABS: Arterial Blood Gas PEEP 5 cmH2O; Arterial Blood Gas Tidal Volume 330 ml; Arterial Blood Gas Vent Mode CMV; Arterial Blood Gas Ventilator rate 14 /MIN
[2021-05-15 05:36] LABS: Alanine Aminotransferase 16 U/L (4-35); Albumin Level 1.8 g/dL (3.5-5.1); Alkaline Phosphatase 68 U/L (38-126); Anion Gap 7 mmol/L (8-16); Aspartate Amino Transferase 28 U/L (14-36); Bilirubin,Total 0.5 mg/dL (0.2-1.3); Blood Urea Nitrogen 92 mg/dL (7-17); CRP 24.1 mg/dL (<1.0); Calcium 8.1 mg/dL (8.4-10.2); Carbon Dioxide 22 mmol/L (22-30); Chloride 129 mmol/L (98-107); Estimated CRCL calculation 19 ml/min; Estimated Glomerular Filt Rate 31; Glucose 213 mg/dL (65-110); Magnesium 2.2 mg/dL (1.6-2.3); Phosphorus 3.2 mg/dL (2.5-4.5); Potassium 3.5 mmol/L (3.4-5.0); Sodium 158 mmol/L (137-145)
[2021-05-15 05:48] LABS: Glucose Point of Care 198 mg/dl (65-105)
[2021-05-15] MEDS: HEPARIN SODIUM 5,000 UNITS/ML VIAL 5000 UNITS SUB-Q ×2 (08:01→20:00)
[2021-05-15] MEDS: MINERAL OIL/WHITE PETROLATUM OINTMENT 1 APPLIC EACH EYE ×2 (08:02→20:00)
[2021-05-15] MEDS: PANTOPRAZOLE SODIUM IV 40 MG VIAL IV PUSH (08:02)
[2021-05-15 12:01] LABS: Glucose Point of Care 213 mg/dl (65-105)
[2021-05-15] MEDS: INSULIN ASPART (*BKC) 100 UNITS/ML SUB-Q ×3 (12:02→23:40)
--- NOTE | 2021-05-15 14:28 | WPDINTPN ---
Progress Note: A&P Assessment and Plan (1) Acute respiratory failure: Code(s): J96.00 - Acute respiratory failure, unspecified whether with hypoxia or hypercapnia Status: Acute Assessment and Plan: acute respiratory failure likely related to encephalopathy and altered mental status secondary to severe sepsis - intubated on 05/13 - was on CMV mode of ventilation, peep of 5, 30% FiO2 - placed patient on ASV mode of ventilation, will evaluate for extubation a.m. as she is gradually waking up, waiting for sodium levels to improved which will help her mental status - patient is on no sedation (2) Severe sepsis: Code(s): A41.9 - Sepsis, unspecified organism; R65.20 - Severe sepsis without septic shock Status: Acute Assessment and Plan: patient presented with altered mental status, lactic acidosis, UTI - received a total of 3 L of IV fluids - continue maintenance IV fluid - lactic acid has normalized - patient is not requiring pressors at this time blood pressures are stable - continue ceftriaxone ( initiated on 05/13) - blood cultures negative x2 so far - urine cultures growing Proteus mirabilis, pansensitive - leukocytosis improved (3) Acute UTI: Code(s): N39.0 - Urinary tract infection, site not specified Status: Resolved Assessment and Plan: urine cultures have been obtained and pending, continue ceftriaxone (4) Acute kidney injury: Code(s): N17.9 - Acute kidney failure, unspecified Status: Acute Assessment and Plan: acute kidney injury likely related to dehydration, UTI, hypovolemia, severe sepsis - creatinine on admission was 4.40 ( on 04/06/2021 creatinine was 1.0) - received 3 L IV fluids continue maintenance IV fluids - continue maintenance IV fluids - creatinine improving, 1.6 this morning - monitor renal function, electrolytes and urine output (5) Type 2 diabetes mellitus with hyperglycemia: Code(s): E11.65 - Type 2 diabetes mellitus with hyperglycemia Status: Acute Assessment and Plan: patient presented to hyperglycemia, - on high-dose sliding scale insulin Accu-Cheks (6) Hypernatremia: Code(s): E87.0 - Hyperosmolality and hypernatremia Status: Acute Assessment and Plan: likely related to hypovolemia, dehydration - patient has been given adequate amount of IV fluids - continue 0.45% saline - serial BMPs to monitor sodium levelsl - will gradually improving (7) Hyperkalemia: Code(s): E87.5 - Hyperkalemia Status: Acute Assessment and Plan: hyperkalemia likely related acute kidney injury - patient has been treated with calcium chloride, insulin and D50, sodium bicarb - potassium is stable and within normal limits (8) Dementia: Qualifiers: Dementia behavioral disturbance: with behavioral disturbance Dementia type: unspecified type Qualified Code(s): F03.91 - Unspecified dementia with behavioral disturbance Code(s): F03.90 - Unspecified dementia without behavioral disturbance Status: Acute Assessment and Plan: Alzheimer's dementia - according the patient is hard of hearing but is able to communicate, according to him she does not have severe dementia (9) DVT prophylaxis: Code(s): Z29.9 - Encounter for prophylactic measures, unspecified Status: Acute Assessment and Plan: DVT prophylaxis; heparin subcu stress ulcer prophylaxis: Protonix Additional Plan discussed with patient's spouse, updated him with patient's condition and plan of care. answered all questions code status: Full code Critical care time spent: 32 Minutes This dictation may have been done utilizing a voice recognition system. Attempts have been made to correct errors. However, there may be uncorrected grammatical, spelling, and recognition errors present. Due to a high probability of clinically significant, life threatening d
[2021-05-15 17:04] LABS: Vancomycin Random < 5.0 ug/mL (10-20)
[2021-05-15 17:46] LABS: Glucose Point of Care 219 mg/dl (65-105)
[2021-05-15] MEDS: METOCLOPRAMIDE HCL INJ 10 MG/2 ML VIAL IV PUSH ×2 (19:44→23:41)
[2021-05-16] VITALS (21 sets, daily range): BP systolic 108–130; BP diastolic 52–65; PULSE 101–122; RESP 20–29; TEMP 36.6–38.2; O2SAT 95–100
[2021-05-16 00:37] LABS: Glucose Point of Care 255 mg/dl (65-105)
[2021-05-16] MEDS: SODIUM CHLORIDE 0.45% 1,000 ML 100 ML IV CONT ×2 (03:47→12:59)
[2021-05-16 04:13] LABS: Hematocrit 28.3 % (37.0-47.0); Hemoglobin 8.6 g/dL (12.0-15.0); Mean Corpuscular HGB Conc 30.4 g/dl (32-36); Mean Corpuscular Hemoglobin 29.4 pg (26-34); Mean Corpuscular Volume 96.6 fl (80-100); Mean Platelet Volume 11.8 fl (7.4-10.4); Platelet Count Result 119 k/mm3 (150-375); Red Blood Count 2.93 M/mm3 (4.2-5.4); White Blood Count 13.5 K/mm3 (4.5-10.0)
[2021-05-16 04:24] LABS: Alanine Aminotransferase 19 U/L (4-35); Albumin Level 1.8 g/dL (3.5-5.1); Alkaline Phosphatase 122 U/L (38-126); Anion Gap 4 mmol/L (8-16); Aspartate Amino Transferase 35 U/L (14-36); Bilirubin,Total 0.4 mg/dL (0.2-1.3); Blood Urea Nitrogen 73 mg/dL (7-17); Calcium 8.3 mg/dL (8.4-10.2); Carbon Dioxide 23 mmol/L (22-30); Chloride 129 mmol/L (98-107); Estimated CRCL calculation 25 ml/min; Estimated Glomerular Filt Rate 43; Glucose 301 mg/dL (65-110); Magnesium 2.2 mg/dL (1.6-2.3); Phosphorus 2.6 mg/dL (2.5-4.5); Potassium 3.5 mmol/L (3.4-5.0); Sodium 156 mmol/L (137-145)
[2021-05-16] MEDS: INSULIN ASPART (*BKC) 100 UNITS/ML SUB-Q ×4 (06:03→23:16)
[2021-05-16 06:04] LABS: Alveolar/Arterial O2 Gradient 108.3 mmHg; Base Excess ABG -2.3 mEq/l (+/-2.0); Carboxyhemoglobin 0.2 % THb (0-2.0); Fractional Inspired Oxygen 30 %; HCO3 ABG 20.1 mEq/l (22.0-26.0); Methemoglobin ABG 0.4 %THb (0-1.5); Oxygen Content ABG 13.3 %vol (16.0-22.0); Oxygen Saturation ABG 96.1 % (95.0-100.0); Oxyhemoglobin 93.3 % THb (90.0-100.0); PCO2 ABG 26.9 mmHg (35.0-45.0); PO2 FiO2 Ratio Arterial Blood 2.47 %; Reduced Hemoglobin 6.1 %THb (0-5.0); Total Hemoglobin 10.1 g/dL (12.0-18.0); pH ABG 7.491 (7.350-7.450)
[2021-05-16] MEDS: METOCLOPRAMIDE HCL INJ 10 MG/2 ML VIAL IV PUSH ×4 (06:04→23:17)
[2021-05-16 06:05] LABS: Device VENTILATOR; Modified Allen's Test Pass; Site Drawn RIGHT RADIAL
[2021-05-16] MEDS: CENTRAL LINE FLUSH 10 ML IV PUSH ×4 (06:05→21:36)
[2021-05-16 06:06] LABS: Arterial Blood Gas Minute Volume 100 LPM; Arterial Blood Gas PEEP 5 cmH2O; Arterial Blood Gas Vent Mode ASV
[2021-05-16 06:09] LABS: Glucose Point of Care 296 mg/dl (65-105)
[2021-05-16] MEDS: PANTOPRAZOLE SODIUM IV 40 MG VIAL IV PUSH (07:51)
[2021-05-16] MEDS: HEPARIN SODIUM 5,000 UNITS/ML VIAL 5000 UNITS SUB-Q ×2 (07:51→20:03)
[2021-05-16] MEDS: MINERAL OIL/WHITE PETROLATUM OINTMENT 1 APPLIC EACH EYE ×2 (07:52→20:03)
[2021-05-16 12:55] LABS: Glucose Point of Care 330 mg/dl (65-105)
[2021-05-16 12:55] LABS: Glucose Point of Care 395 mg/dl (65-105)
[2021-05-16] MEDS: INSULIN GLARGINE (*BKC) 100 UNITS/ML SUB-Q (12:57)
--- NOTE | 2021-05-16 15:42 | WPDINTPN ---
Progress Note: A&P Assessment and Plan (1) Acute respiratory failure: Code(s): J96.00 - Acute respiratory failure, unspecified whether with hypoxia or hypercapnia Status: Acute Assessment and Plan: acute respiratory failure likely related to encephalopathy and altered mental status secondary to severe sepsis - intubated on 05/13 - was on CMV mode of ventilation, peep of 5, 30% FiO2 - placed patient on ASV mode of ventilation, will evaluate for extubation a.m. as she is gradually waking up, waiting for sodium levels to improved which will help her mental status - patient is not on any sedation - chest x-ray this morning with increased bilateral pulmonary infiltrates with question of cavitary lesion right mid to lower lung zone. Will obtain CT scan noncontrast of the chest (2) Severe sepsis: Code(s): A41.9 - Sepsis, unspecified organism; R65.20 - Severe sepsis without septic shock Status: Acute Assessment and Plan: patient presented with altered mental status, lactic acidosis, UTI - received a total of 3 L of IV fluids - continue maintenance IV fluid - lactic acid has normalized - patient is not requiring pressors at this time blood pressures are stable - continue ceftriaxone ( initiated on 05/13) - blood cultures growing Proteus mirabilis 1/2 bottles - urine cultures growing Proteus mirabilis, pansensitive - leukocytosis improved (3) Acute UTI: Code(s): N39.0 - Urinary tract infection, site not specified Status: Resolved Assessment and Plan: Proteus UTI, continue ceftriaxone (4) Acute kidney injury: Code(s): N17.9 - Acute kidney failure, unspecified Status: Acute Assessment and Plan: acute kidney injury likely related to dehydration, UTI, hypovolemia, severe sepsis - creatinine on admission was 4.40 ( on 04/06/2021 creatinine was 1.0) - received 3 L IV fluids continue maintenance IV fluids - continue maintenance IV fluids - creatinine improving, 12 this morning - monitor renal function, electrolytes and urine output (5) Type 2 diabetes mellitus with hyperglycemia: Code(s): E11.65 - Type 2 diabetes mellitus with hyperglycemia Status: Acute Assessment and Plan: patient presented to hyperglycemia, - on high-dose sliding scale insulin Accu-Cheks (6) Hypernatremia: Code(s): E87.0 - Hyperosmolality and hypernatremia Status: Acute Assessment and Plan: likely related to hypovolemia, dehydration - patient has been given adequate amount of IV fluids - continue 0.45% saline - serial BMPs to monitor sodium levelsl - will gradually improving (7) Hyperkalemia: Code(s): E87.5 - Hyperkalemia Status: Acute Assessment and Plan: hyperkalemia likely related acute kidney injury - patient has been treated with calcium chloride, insulin and D50, sodium bicarb - potassium is stable and within normal limits (8) Dementia: Qualifiers: Dementia type: unspecified type Dementia behavioral disturbance: with behavioral disturbance Qualified Code(s): F03.91 - Unspecified dementia with behavioral disturbance Code(s): F03.90 - Unspecified dementia without behavioral disturbance Status: Acute Assessment and Plan: Alzheimer's dementia - according the patient is hard of hearing but is able to communicate, according to him she does not have severe dementia (9) DVT prophylaxis: Code(s): Z29.9 - Encounter for prophylactic measures, unspecified Status: Acute Assessment and Plan: DVT prophylaxis; heparin subcu stress ulcer prophylaxis: Protonix Additional Plan discussed with patient's spouse, updated him with patient's condition and plan of care. answered all questions code status: do not resuscitate Critical care time spent: 32 Minutes This dictation may have been done utilizing a voice recognition system. Attempts have been ma
[2021-05-16 18:20] LABS: Glucose Point of Care 307 mg/dl (65-105)
[2021-05-16] MEDS: INSULIN GLARGINE (*BKC) 100 UNITS/ML 20 UNITS SUB-Q (20:06)
[2021-05-16 23:41] LABS: Glucose Point of Care 247 mg/dl (65-105)
[2021-05-17] VITALS (28 sets, daily range): BP systolic 105–152; BP diastolic 56–71; PULSE 110–130; RESP 17–28; TEMP 36.3–37.1; O2SAT 93–100
[2021-05-17] MEDS: SODIUM CHLORIDE 0.45% 1,000 ML 100 ML IV CONT
[2021-05-17] MEDS: MIDAZOLAM HCL (*CRX) 2 MG/2 ML VIAL IV PUSH (01:30)
[2021-05-17 04:38] LABS: Hematocrit 28.9 % (37.0-47.0); Hemoglobin 8.7 g/dL (12.0-15.0); Mean Corpuscular HGB Conc 30.1 g/dl (32-36); Mean Corpuscular Hemoglobin 29.2 pg (26-34); Mean Platelet Volume 11.7 fl (7.4-10.4); Platelet Count Result 133 k/mm3 (150-375); Red Blood Count 2.98 M/mm3 (4.2-5.4); Red Cell Distribution Width 15.4 % (11.5-14.5); White Blood Count 15.7 K/mm3 (4.5-10.0)
[2021-05-17 04:55] LABS: Alveolar/Arterial O2 Gradient 108.5 mmHg; Base Excess ABG -3.1 mEq/l (+/-2.0); Carboxyhemoglobin 0.3 % THb (0-2.0); Fractional Inspired Oxygen 30 %; HCO3 ABG 18.4 mEq/l (22.0-26.0); Methemoglobin ABG 0.8 %THb (0-1.5); Oxygen Content ABG 10.5 %vol (16.0-22.0); Oxygen Saturation ABG 97.4 % (95.0-100.0); Oxyhemoglobin 94.2 % THb (90.0-100.0); PO2 ABG 80.5 mmHg (80.0-100.0); PO2 FiO2 Ratio Arterial Blood 2.68 %; Reduced Hemoglobin 4.7 %THb (0-5.0)
[2021-05-17 04:57] LABS: Device VENTILATOR; Modified Allen's Test Pass; Site Drawn RIGHT RADIAL
[2021-05-17 04:58] LABS: Arterial Blood Gas PEEP 5 cmH2O; Arterial Blood Gas Tidal Volume 330 ml; Arterial Blood Gas Vent Mode CMV; Arterial Blood Gas Ventilator rate 18 /MIN
[2021-05-17 05:07] LABS: pH ABG 7.556 (7.350-7.450)
[2021-05-17 05:09] LABS: PCO2 ABG 21.2 mmHg (35.0-45.0)
[2021-05-17 05:10] LABS: Total Hemoglobin 7.8 g/dL (12.0-18.0)
[2021-05-17 05:14] LABS: Alanine Aminotransferase 19 U/L (4-35); Albumin Level 1.9 g/dL (3.5-5.1); Alkaline Phosphatase 133 U/L (38-126); Anion Gap 6 mmol/L (8-16); Aspartate Amino Transferase 33 U/L (14-36); Bilirubin,Total 0.4 mg/dL (0.2-1.3); Blood Urea Nitrogen 51 mg/dL (7-17); Carbon Dioxide 23 mmol/L (22-30); Chloride 126 mmol/L (98-107); Estimated CRCL calculation 29 ml/min; Estimated Glomerular Filt Rate 53; Glucose 240 mg/dL (65-110); Magnesium 2.1 mg/dL (1.6-2.3); Phosphorus 2.4 mg/dL (2.5-4.5); Potassium 3.6 mmol/L (3.4-5.0); Sodium 155 mmol/L (137-145)
[2021-05-17] MEDS: METOCLOPRAMIDE HCL INJ 10 MG/2 ML VIAL IV PUSH ×4 (06:37→23:44)
[2021-05-17] MEDS: CENTRAL LINE FLUSH 10 ML IV PUSH ×4 (06:37→21:43)
[2021-05-17] MEDS: INSULIN ASPART (*BKC) 100 UNITS/ML SUB-Q ×4 (06:38→23:45)
[2021-05-17 06:42] LABS: Glucose Point of Care 229 mg/dl (65-105)
--- NOTE | 2021-05-17 08:10 | PM.IMPN ---
Progress Note: A&P Assessment and Plan (1) Acute respiratory failure: Code(s): J96.00 - Acute respiratory failure, unspecified whether with hypoxia or hypercapnia Status: Acute Assessment and Plan: acute respiratory failure likely related to encephalopathy, pneumonia, and severe sepsis - intubated on 05/13 - was on CMV mode of ventilation, peep of 5, 30% FiO2. - patient is not on any sedation. Her mental status is still poor and is not following command. - Thoracic imaging showed worsening infiltrate with possible cavitation in the right lower lobe with a question of cavitating pneumonia. She was evaluated by pulmonary service and planning to do bronchoscopy at the bedside for BAL. (2) Severe sepsis: Code(s): A41.9 - Sepsis, unspecified organism; R65.20 - Severe sepsis without septic shock Status: Acute Assessment and Plan: patient presented with altered mental status, lactic acidosis, UTI - lactic acid has normalized With IV fluid resuscitation - she did not require any pressor support as hemodynamics remained stable. - She was on ceftriaxone which was initiated on 05/13 but now her antibiotics have been broadened to Zosyn, levofloxacin and vancomycin. Follow BAL cultures when available. - blood cultures growing Proteus mirabilis 1/2 bottles. Follow-up blood culture has been sent today to document resolution of the bacteremia. - urine cultures growing Proteus mirabilis, pansensitive - leukocytosis improved (3) Acute UTI: Code(s): N39.0 - Urinary tract infection, site not specified Status: Resolved Assessment and Plan: Proteus UTI. She has been adequately treated with ceftriaxone. Now she is on broad-spectrum antibiotics for Probable necrotizing pneumonia. (4) Acute kidney injury: Code(s): N17.9 - Acute kidney failure, unspecified Status: Acute Assessment and Plan: acute kidney injury likely related to dehydration, UTI, hypovolemia, severe sepsis - creatinine on admission was 4.40 ( on 04/06/2021 creatinine was 1.0) - received adequate amount of IV fluids. - continue maintenance IV fluids - creatinine improving - monitor renal function, electrolytes and urine output (5) Type 2 diabetes mellitus with hyperglycemia: Code(s): E11.65 - Type 2 diabetes mellitus with hyperglycemia Status: Acute Assessment and Plan: patient presented to hyperglycemia, - on Glargine and high-dose sliding scale insulin Accu-Cheks (6) Hypernatremia: Code(s): E87.0 - Hyperosmolality and hypernatremia Status: Acute Assessment and Plan: likely related to hypovolemia, dehydration - patient has been given adequate amount of IV fluids Continue IV fluid resuscitation (7) Hyperkalemia: Code(s): E87.5 - Hyperkalemia Status: Acute Assessment and Plan: hyperkalemia likely related acute kidney injury - patient has been treated with calcium chloride, insulin and D50, sodium bicarb At the time of presentation. - potassium is stable and within normal limits (8) Dementia: Qualifiers: Dementia behavioral disturbance: with behavioral disturbance Dementia type: unspecified type Qualified Code(s): F03.91 - Unspecified dementia with behavioral disturbance Code(s): F03.90 - Unspecified dementia without behavioral disturbance Status: Acute Assessment and Plan: Alzheimer's dementia - according the patient is hard of hearing but is able to communicate, according to him she does not have severe dementia (9) DVT prophylaxis: Code(s): Z29.9 - Encounter for prophylactic measures, unspecified Status: Acute Assessment and Plan: DVT prophylaxis; heparin subcu stress ulcer prophylaxis: Protonix Additional Plan code status: do not resuscitate Critical care time spent: 32 Minutes Subjective Date/time seen: 05/17/21 08:10 I
--- NOTE | 2021-05-17 08:56 | PM.CNPUL ---
Assessment and Plan Assessment and plan (1) Cavitary pneumonia: Code(s): J18.9 - Pneumonia, unspecified organism; J98.4 - Other disorders of lung Status: Acute Assessment and Plan: Patient with worsening right lower lobe infiltrate now with a cavitary lesion. Patient had a normal chest x-ray on 04/06/21 making cancer less likely. Patient may have an endobronchial lesion and or may have aspirated a foreign body given her dementia. I recommended bronchoscopy and spoke with the who has provided consent. Patient will have 7.0 ET tube change to accommodate bronchoscopy. Worsening cavitary pneumonia despite ceftriaxone I agree with broadening antibiotics and patient is on vancomycin since 05/15, Zosyn since 05/17 and Levaquin will be added on 05/17. Will send sputum culture and obtain cultures from bronchoscopy. Will follow patient clinically and radiologically to determine if she is responding to broaden antibiotic coverage. Discussed with Dr. Patel Will follow with you. History of Present Illness History of Present Illness Consult date: 05/17/21 Requesting physician: Umair Patel MD Chief complaint: unresponsive,urinary tract infection,baljeet,hyperkale Narrative: this is a new pulmonary consult for cavitary pneumonia in the right lower lobe 80-year-old female with dementia with indwelling rios, hypertension, diabetes, hypothyroidism, coronary artery disease status post bypass, history of breast cancer presented to the emergency room from the correction on 05/13 and was found to have altered mental status, acute kidney injury, lactic acidosis, Prieb Earlene drainage from the urethra and later found to have a Proteus mirabilis UTI and bacteremia. Patient was fluid resuscitated and started on pressors and ceftriaxone. Right lower lobe infiltrate became progressively worse and on 05/16 there was suggestion of a cavitary lesion. High-resolution CT scan documented a right lower lobe consolidation with likely necrosis. Patient was started on vancomycin on 05/15 and on Zosyn on 05/17. Pateint is DNR. I was consulted on 05/18. Past imaging demonstrated a chest x-ray on 04/06/2021 demonstrated no acute cardiopulmonary disease. 05/18 Patient is not sedated and not on pressors. She is not following commands and intubated on 30% FiO2 peep of 5 with ABG 7.56/. ETT 7.0. DATA: EXAMINATION: CT chest high resolution kurtis funk, EXAM DATE: 05/16/2021 18:55 INDICATION: Bilateral infiltrates. Encephalopathy. TECHNIQUE: Spiral CT of the chest without contrast. Prior CT. Axial, coronal and sagittal images of the chest were reviewed. Coronal maximum intensity pixel images of chest reviewed. The dose-length product (DLP) for this examination was 179.93 mGy-cm. The exposure was tailored according to patient size (auto mA exposure control), and iterative reconstruction (ASIR) was used as additional dose reduction technique. Correlation is made to chest x-ray earlier same date. FINDINGS: Endotracheal tube and nasogastric tube are in expected positions. There is right lower lobe necrotic pneumonia with multi segmental involvement. Masslike cavitary region with fluid/debris measuring 5.8 cm. Small amount of airspace disease in the right upper and middle lobes, and the left lower lobe. There are no pleural or pericardial effusions. There is large amount of fluid/debris within the lower lobe bronchi bilaterally. There is no mediastinal, hilar or axillary lymphadenopathy. There is no pneumothorax. Heart normal in size. There are sternotomy wires, and cardiac/coronary surgical changes. Correlate with prior history. Upper abdomen is unremarkable. There is thoracic spondylosis without osteoblastic or osteolytic lesions identified. IMPRESSION: 1. Right lower lobe predominant multi segmental pneumonia with cavitary region probably necrosis. Underlying cancer not totally excludable. 2.
[2021-05-17] MEDS: DEXTROSE 5% 1,000 ML 1,000 ML 50 ML IV CONT (09:21)
[2021-05-17] MEDS: INSULIN GLARGINE (*BKC) 100 UNITS/ML 10 UNITS SUB-Q (09:21)
[2021-05-17] MEDS: MINERAL OIL/WHITE PETROLATUM OINTMENT 1 APPLIC EACH EYE ×2 (09:22→21:37)
[2021-05-17] MEDS: HEPARIN SODIUM 5,000 UNITS/ML VIAL 5000 UNITS SUB-Q ×2 (09:22→21:37)
[2021-05-17] MEDS: PANTOPRAZOLE SODIUM IV 40 MG VIAL IV PUSH (09:23)
[2021-05-17 10:17] LABS: Anion Gap 4 mmol/L (8-16); Blood Urea Nitrogen 44 mg/dL (7-17); Calcium 7.4 mg/dL (8.4-10.2); Carbon Dioxide 22 mmol/L (22-30); Chloride 123 mmol/L (98-107); Estimated CRCL calculation 32 ml/min; Estimated Glomerular Filt Rate 60; Glucose 268 mg/dL (65-110); Potassium 3.3 mmol/L (3.4-5.0); Sodium 149 mmol/L (137-145)
--- NOTE | 2021-05-17 12:03 | PCDIET ---
Nutrition Follow-Up Complete: Nutrition Diagnosis: Inadequate oral intake related to oral intubation as evidenced by NPO status. Nutrition Goal: Patient to meet estimated nutritional needs. Goal in progress. Tube feedings previously initiated, but currently on hold for bronchoscopy. Expect Glucerna 1.2 to resume with same goal of 45mL/hr following procedure. IV fluids ordered. May need to consider increasing free water flush when tube feedings resume. Last recorded weight is 57 kg which is increased from last review. +I/O. Bowel Motility: Last documented BM on 05/16/21 x 1. Labs Reviewed: WBC (15.7), RBC (2.98), Hgb (8.7), Hct (28.9), BUN (51), Na 9155), Alb (1.9), PO4 (2.4), Rosalva Ca (9.68) Meds Noted: Novolog, Lantus, Reglan, Protonix, Zosyn, Vancomycin Additional Notes: Labia macerated. Will continue to monitor with same goal. Nutrition Monitoring and Evaluation: Follow up every Monday/Monday. Follow daily in ICU rounds.
[2021-05-17 12:29] LABS: Glucose Point of Care 284 mg/dl (65-105)
--- NOTE | 2021-05-17 12:47 | PM.CNNEP ---
Assessment and Plan Assessment and plan (1) Hypernatremia: Code(s): E87.0 - Hyperosmolality and hypernatremia Status: Acute Assessment and Plan: patient has hypernatremia. Urine output is not high. This makes it unlikely to be diabetes insipidus. Most likely this is due to free water loss she was dehydrated when she came in and because of insensible loss her sodium/water ratio has gotten out of balance. I agree with giving D5 W. will increase the rate a little bit and check another sodium level this evening and make adjustments from there. Will also check urine osmolality. (2) Severe sepsis: Code(s): A41.9 - Sepsis, unspecified organism; R65.20 - Severe sepsis without septic shock Status: Acute Assessment and Plan: The patient has Proteus mirabilis in the blood and urine. The patient is on broad-spectrum antibiotics: Vancomycin and Piperacillin as well as Levaquin. The patient also has cavitary lesion in her lung which is why she is on broad-spectrum antibiotics. (3) Cavitary pneumonia: Code(s): J18.9 - Pneumonia, unspecified organism; J98.4 - Other disorders of lung Status: Acute Assessment and Plan: Dr. Bishop has been consulted and is going to do a bronchoscopy. (4) Urinary retention: Code(s): R33.9 - Retention of urine, unspecified Status: Acute Assessment and Plan: Patient has a Poole catheter in place (5) Metabolic encephalopathy: Code(s): G93.41 - Metabolic encephalopathy Status: Acute Assessment and Plan: due to the above (6) Type 2 diabetes mellitus with hyperglycemia: Code(s): E11.65 - Type 2 diabetes mellitus with hyperglycemia Status: Acute Assessment and Plan: sugars are doing pretty well in the mid 200s. (7) Dementia: Qualifiers: Dementia type: unspecified type Dementia behavioral disturbance: with behavioral disturbance Qualified Code(s): F03.91 - Unspecified dementia with behavioral disturbance Code(s): F03.90 - Unspecified dementia without behavioral disturbance Status: Acute Assessment and Plan: I chronic condition History of Present Illness Reason for Consult Consult date: 05/17/21 Chief Complaint Chief complaint: unresponsive,urinary tract infection,baljeet,hyperkale History of Present Illness Narrative: Sherie is an unfortunately 81-year-old lady who has hypernatremia. The patient has a past history of dementia, hypertension, diabetes, hypothyroidism, coronary disease status post bypass, breast cancer, hypothyroidism. Patient came in the hospital because of unresponsiveness. The patient had renal failure and hypotension with lactic acidosis. The patient was given IV fluids and antibiotics. She had renal failure but this improved over the 1st 2 or 3 days of the hospitalization. Her sodium level is elevated and worsened recently so renal consultation was requested. The patient cannot give a history urine output was about 1300cc yesterday. Currently BUN is not elevated although was very high on admission. Blood sugars are a bit high but have been stable. She does not have glucosuria. at first is getting normal saline because of her renal failure. Then she was switched to half-normal saline because of the elevated sodium and now she is on D5W. This is running at50cc an hour. Review of Systems Review of Systems: ROS unobtainable: Yes unobtainable due to medical condition Endocrine: Endocrine: Reports no additional endocrine complaints [facility] Past Medical History Medical History Cancer of left breast Coronary artery disease Dementia Hypothyroid Type 2 diabetes mellitus Hemoglobin A1c was 5.5% in July 2020. Surgical History Surgical History History of coronary artery bypass graft History o
--- NOTE | 2021-05-17 12:59 | SUR.OPER ---
Sedation ordered by Dr. Patel and given by [employer].
--- NOTE | 2021-05-17 13:32 | PM.OP ---
Procedure Note - Brief Procedure Note - Brief Date of procedure: 05/17/21 Pre-op diagnosis: unresponsive,urinary tract infection,baljeet,hyperkale Surgeon: Bronchoscopy procedure. Pre op diagnosis: cavitary pneumonia After time out and informed consent scope inserted through existing ETT. 2 ml lidocaine given to main jasmyn Purulent secretions noticed in right lower lobe and superior segment RLL oriface was occluded by secretions. Secretions aspirated. All segments on right open and patent without evidence of foreign body or endobronchial lesions. BAL superior segment performed with 100 ml in and 5 ml out. Left lung inspected and all segments open and patent. Washing sent for gram stain and culture BAL sent for gram stain and culture At end of procedure no bleeding and ETT 2.5 cm from main jasmyn. CXR without pneumothorax and ETT in good position. Post op diagnosis: cavitary pneumonia Oneil Bishop MD
[2021-05-17] MEDS: SODIUM CHLORIDE 0.9% IV 500 ML BAG IRRIGATION (13:38)
[2021-05-17] MEDS: LIDOCAINE HCL 2% LOCAL INJ 20 ML VIAL INFILTRATE (13:40)
[2021-05-17] MEDS: MIDAZOLAM HCL (*CRX) 2 MG/2 ML VIAL 4 MG (13:43)
--- NOTE | 2021-05-17 13:46 | WPDINTPN ---
Progress Note: A&P Assessment and Plan (1) Acute respiratory failure: Code(s): J96.00 - Acute respiratory failure, unspecified whether with hypoxia or hypercapnia Status: Acute Assessment and Plan: acute respiratory failure likely related to encephalopathy and altered mental status secondary to severe sepsis - intubated on 05/13 - Is on CMV mode of ventilation, peep of 5, 30% FiO2 - placed patient on ASV mode of ventilation, will evaluate for extubation a.m. as she is gradually waking up, waiting for sodium levels to improved which will help her mental status - patient is not on any sedation - chest x-ray this morning with increased bilateral pulmonary infiltrates with question of cavitary lesion right mid to lower lung zone. - Chest CT 05/16/2021 showed Right lower lobe predominant multi segmental pneumonia with cavitary region probably necrosis. - Consulted ground water contractor, pt will be bronched today (2) Severe sepsis: Code(s): A41.9 - Sepsis, unspecified organism; R65.20 - Severe sepsis without septic shock Status: Acute Assessment and Plan: patient presented with altered mental status, lactic acidosis, UTI - received a total of 3 L of IV fluids - continue maintenance IV fluid - lactic acid has normalized - patient is not requiring pressors at this time blood pressures are stable - given the cavitary lesion in the right lung, will switch ceftriaxone to zosyn, levaquin ( 05/17/21) and continue vancomycin - blood cultures growing Proteus mirabilis - urine cultures growing Proteus mirabilis, pansensitive - leukocytosis improved check sputum cx, repeat blood cultures Treatment Manager recommended testing for SARs CoV 2 virus (3) Acute UTI: Code(s): N39.0 - Urinary tract infection, site not specified Status: Resolved Assessment and Plan: Proteus UTI, continue ceftriaxone (4) Acute kidney injury: Code(s): N17.9 - Acute kidney failure, unspecified Status: Acute Assessment and Plan: acute kidney injury likely related to dehydration, UTI, hypovolemia, severe sepsis - creatinine on admission was 4.40 ( on 04/06/2021 creatinine was 1.0) - received 3 L IV fluids continue maintenance IV fluids - continue maintenance IV fluids - creatinine improving, Cr 0.9 this morning - monitor renal function, electrolytes and urine output (5) Type 2 diabetes mellitus with hyperglycemia: Code(s): E11.65 - Type 2 diabetes mellitus with hyperglycemia Status: Acute Assessment and Plan: patient presented to hyperglycemia, - on high-dose sliding scale insulin Accu-Cheks (6) Hypernatremia: Code(s): E87.0 - Hyperosmolality and hypernatremia Status: Acute Assessment and Plan: likely related to hypovolemia, dehydration - patient has been given adequate amount of IV fluids - Will switch 0.45% to D5W. - consulted nehprology. D/w Dr. Aguilar who agrees with D5W, Will do serial BMPs to check sodium - serial BMPs to monitor sodium levels - Na gradually improving (7) Hyperkalemia: Code(s): E87.5 - Hyperkalemia Status: Acute Assessment and Plan: hyperkalemia likely related acute kidney injury - patient has been treated with calcium chloride, insulin and D50, sodium bicarb - potassium is stable and within normal limits (8) Dementia: Qualifiers: Dementia type: unspecified type Dementia behavioral disturbance: with behavioral disturbance Qualified Code(s): F03.91 - Unspecified dementia with behavioral disturbance Code(s): F03.90 - Unspecified dementia without behavioral disturbance Status: Acute Assessment and Plan: Alzheimer's dementia - according the patient is hard of hearing but is able to communicate, according to him she does not have severe dementia (9) DVT prophylaxis: Code(s): Z29.9 - Encounter for prophylactic measures, unspecified Status: Acute Ass
[2021-05-17] MEDS: PHARMACIST COMMUNICATION ORDER 1 EACH XX (16:48)
[2021-05-17 18:14] LABS: Glucose Point of Care 244 mg/dl (65-105)
[2021-05-17 20:27] LABS: Anion Gap 5 mmol/L (8-16); Blood Urea Nitrogen 40 mg/dL (7-17); Calcium 7.5 mg/dL (8.4-10.2); Carbon Dioxide 23 mmol/L (22-30); Chloride 121 mmol/L (98-107); Estimated CRCL calculation 32 ml/min; Estimated Glomerular Filt Rate 60; Glucose 294 mg/dL (65-110); Potassium 3.4 mmol/L (3.4-5.0); Sodium 149 mmol/L (137-145)
[2021-05-17] MEDS: DEXTROSE 5% 1,000 ML 1,000 ML 100 ML IV CONT (21:37)
[2021-05-17] MEDS: INSULIN GLARGINE (*BKC) 100 UNITS/ML 30 UNITS SUB-Q (21:38)
[2021-05-18] VITALS (19 sets, daily range): BP systolic 98–119; BP diastolic 44–68; PULSE 73–129; RESP 18–22; TEMP 36.1–37.3; O2SAT 93–100
[2021-05-18 00:02] LABS: Glucose Point of Care 261 mg/dl (65-105)
[2021-05-18 02:13] LABS: Anion Gap 6 mmol/L (8-16); Blood Urea Nitrogen 38 mg/dL (7-17); Calcium 7.8 mg/dL (8.4-10.2); Carbon Dioxide 23 mmol/L (22-30); Chloride 115 mmol/L (98-107); Estimated CRCL calculation 32 ml/min; Estimated Glomerular Filt Rate 60; Glucose 305 mg/dL (65-110); Potassium 3.3 mmol/L (3.4-5.0); Sodium 144 mmol/L (137-145)
[2021-05-18] MEDS: METOCLOPRAMIDE HCL INJ 10 MG/2 ML VIAL IV PUSH ×2 (05:17→11:31)
[2021-05-18] MEDS: CENTRAL LINE FLUSH 10 ML IV PUSH ×4 (05:18→20:33)
[2021-05-18] MEDS: INSULIN ASPART (*BKC) 100 UNITS/ML SUB-Q ×4 (05:18→23:42)
[2021-05-18 05:41] LABS: Hematocrit 24.9 % (37.0-47.0); Hemoglobin 7.5 g/dL (12.0-15.0); Mean Corpuscular HGB Conc 30.1 g/dl (32-36); Mean Corpuscular Hemoglobin 29.1 pg (26-34); Mean Corpuscular Volume 96.5 fl (80-100); Mean Platelet Volume 12.3 fl (7.4-10.4); Platelet Count Result 130 k/mm3 (150-375); Red Blood Count 2.58 M/mm3 (4.2-5.4); Red Cell Distribution Width 14.9 % (11.5-14.5); White Blood Count 12.3 K/mm3 (4.5-10.0)
[2021-05-18 05:54] LABS: Alanine Aminotransferase 19 U/L (4-35); Albumin Level 1.8 g/dL (3.5-5.1); Alkaline Phosphatase 128 U/L (38-126); Anion Gap 6 mmol/L (8-16); Aspartate Amino Transferase 27 U/L (14-36); Bilirubin,Total 0.4 mg/dL (0.2-1.3); Blood Urea Nitrogen 38 mg/dL (7-17); Calcium 7.8 mg/dL (8.4-10.2); Carbon Dioxide 23 mmol/L (22-30); Chloride 118 mmol/L (98-107); Estimated CRCL calculation 32 ml/min; Estimated Glomerular Filt Rate 60; Glucose 277 mg/dL (65-110); Magnesium 1.9 mg/dL (1.6-2.3); Phosphorus 2.6 mg/dL (2.5-4.5); Potassium 3.3 mmol/L (3.4-5.0); Sodium 147 mmol/L (137-145)
[2021-05-18 05:54] LABS: Alveolar/Arterial O2 Gradient 98.1 mmHg; Base Excess ABG -2.1 mEq/l (+/-2.0); Carboxyhemoglobin 0.3 % THb (0-2.0); Fractional Inspired Oxygen 30 %; HCO3 ABG 20.9 mEq/l (22.0-26.0); Methemoglobin ABG 0.5 %THb (0-1.5); Oxygen Content ABG 7.1 %vol (16.0-22.0); Oxygen Saturation ABG 97.3 % (95.0-100.0); Oxyhemoglobin 94.6 % THb (90.0-100.0); PCO2 ABG 26.8 mmHg (35.0-45.0); PO2 ABG 84.3 mmHg (80.0-100.0); PO2 FiO2 Ratio Arterial Blood 2.81 %; Reduced Hemoglobin 4.6 %THb (0-5.0); pH ABG 7.509 (7.350-7.450)
[2021-05-18 05:58] LABS: Device VENTILATOR; Modified Allen's Test Pass; Site Drawn RIGHT RADIAL; Total Hemoglobin 5.2 g/dL (12.0-18.0)
[2021-05-18 05:59] LABS: Arterial Blood Gas PEEP 5 cmH2O; Arterial Blood Gas Tidal Volume 330 ml; Arterial Blood Gas Vent Mode CMV; Arterial Blood Gas Ventilator rate 14 /MIN
[2021-05-18] MEDS: HEPARIN SODIUM 5,000 UNITS/ML VIAL 5000 UNITS SUB-Q (09:16)
[2021-05-18] MEDS: MINERAL OIL/WHITE PETROLATUM OINTMENT 1 APPLIC EACH EYE ×2 (09:17→20:33)
[2021-05-18] MEDS: PANTOPRAZOLE SODIUM IV 40 MG VIAL IV PUSH (09:17)
[2021-05-18] MEDS: DEXTROSE 5% 1,000 ML 1,000 ML 100 ML IV CONT (09:20)
--- NOTE | 2021-05-18 09:33 | PM.PNPUL ---
Progress Note: A&P Assessment and Plan (1) Cavitary pneumonia: Code(s): J18.9 - Pneumonia, unspecified organism; J98.4 - Other disorders of lung Status: Acute Assessment and Plan: 05/17 Patient with worsening right lower lobe infiltrate now with a cavitary lesion. Patient had a normal chest x-ray on 04/06/21 making cancer less likely. Patient may have an endobronchial lesion and or may have aspirated a foreign body given her dementia. I recommended bronchoscopy and spoke with the who has provided consent. Patient will have 7.0 ET tube change to accommodate bronchoscopy. Worsening cavitary pneumonia despite ceftriaxone I agree with broadening antibiotics and patient is on vancomycin since 05/15, Zosyn since 05/17 and Levaquin will be added on 05/17. Will send sputum culture and obtain cultures from bronchoscopy. Will follow patient clinically and radiologically to determine if she is responding to broaden antibiotic coverage. 05/18 WBC 12.3, afebrile (last fever 05/16at 23:23). CXR no change in RLL cavitary pneumonia. COVID pending. All these cultures obtained on 05/17 after ceftriaxone 05/13-05/17, on vanco since 05/13 and zosyn 05/17 Sputum from ETT gram stain mixed yaa. Washings GRAM STAIN: Few epithelial cells, Many WBC, moderate GPB, moderate GPC. BAL gram stain with WBC, moderate GPB, few GPC and GNR. Will follow cultures and follow clinically with WBC trend, fever trend, CXR and repeat CT scan to assess RLL cavitary pneumonia response to antibiotics. Discussed with Dr. Moeller, will follow with you PRN. Subjective Date/time seen: 05/18/21 09:33 Interval history: Narrative: this is a new pulmonary consult for cavitary pneumonia in the right lower lobe 80-year-old female with dementia with indwelling rios, hypertension, diabetes, hypothyroidism, coronary artery disease status post bypass, history of breast cancer presented to the emergency room from the residential on 05/13 and was found to have altered mental status, acute kidney injury, lactic acidosis, Prieb Earlene drainage from the urethra and later found to have a Proteus mirabilis UTI and bacteremia. Patient was fluid resuscitated and started on pressors and ceftriaxone. Right lower lobe infiltrate became progressively worse and on 05/16 there was suggestion of a cavitary lesion. High-resolution CT scan documented a right lower lobe consolidation with likely necrosis. Patient was started on vancomycin on 05/15 and on Zosyn on 05/17. Pateint is DNR. I was consulted on 05/18. Past imaging demonstrated a chest x-ray on 04/06/2021 demonstrated no acute cardiopulmonary disease. 05/18 Patient is not sedated and not on pressors. She is not following commands and intubated on 30% FiO2 peep of 5 with ABG 7.56//. ETT 7.0. WBC 15.7K. Underwent bedside bronchoscopy and purulent secretions in RLL and superior segment RLL and no foreign body or endobronchail lesion in RLL. Cultures sent. Levaquin started. 05/19 Remains intubated, guest relation officer LUE. On 30% and 5 peep with ABG 7.51//84. BAL gram stain with WBC, moderate GPB, few GPC and GNR. WBC 12.3, afebrile. CXR no change in RLL cavitary pneumonia. Review of Systems Review of Systems: ROS unobtainable: Yes unobtainable due to endotracheal tube Exam Const: Orientation/consciousness: oriented to person, oriented to place and oriented to time Other: intubated and unresponsive to verbal commands HENMT: Head: normal to inspection Ears: hearing grossly normal bilaterally Mouth: Yes Normal oral and palatal mucosa present Throat: tonsils absent Neck: Neck: normal visual inspection and supple Chest: Chest palpation & inspection: normal inspection of the chest Resp: Effort & Inspection: normal respiratory effort Auscultation: crackles (R > L base), no rales, no rhonchi and no wheezes Other: intubated Cardio: Jugular venous distension: no JVD Rate: regul
--- NOTE | 2021-05-18 11:00 | PCDIET ---
Nutrition Follow-Up Complete: Nutrition Diagnosis: Inadequate oral intake related to oral intubation as evidenced by NPO status. Nutrition Goal: Patient to meet estimated nutritional needs. Goal in progress. Patient tolerating Glucerna 1.2 at 45mL/hr with 30mL water flush every 4 hours. Tolerating well per nursing. Last recorded weight is 60.3 kg which is increased from last review. +I/O. Bowel Motility: Last documented BM on 05/16/21. Labs Reviewed: WBC (12.3), RBC (2.58), Hgb (7.5), Hct (24.9), Glu (277), BUN (38), Na (147), K (3.3), Cl (118), Alb (1.8), Rosalva Ca (9.56) Meds Noted: D5 at 100mL/hr, Protonix, Novolog, Reglan, Zosyn, Lantus, Levaquin, Vancomycin, KCl Additional Notes: No documented skin breakdown. Will continue to monitor with same goal. Nutrition Monitoring and Evaluation: Follow up every Monday/Monday. Follow daily in ICU rounds.
[2021-05-18] MEDS: POTASSIUM CHLORIDE 20 MEQ PACKET (FOR LIQUID) 40 MEQ FEED TUBE ×2 (11:30→17:48)
[2021-05-18 11:56] LABS: Glucose Point of Care 280 mg/dl (65-105)
--- NOTE | 2021-05-18 12:11 | WPDINTPN ---
Progress Note: A&P Assessment and Plan (1) Acute respiratory failure: Code(s): J96.00 - Acute respiratory failure, unspecified whether with hypoxia or hypercapnia Status: Acute Assessment and Plan: acute respiratory failure likely related to encephalopathy and altered mental status secondary to severe sepsis and pneumonia - intubated on 05/13 - Is on CMV mode of ventilation, peep of 5, 30% FiO2 - decrease tidal volume 300 - COVID-19 PCR pending - patient is not on any sedation. will try weaning trial once mental status improves - status post bronchoscopy on 05/17 - Chest CT 05/16/2021 showed Right lower lobe predominant multi segmental pneumonia with cavitary region probably necrosis. (2) Severe sepsis: Code(s): A41.9 - Sepsis, unspecified organism; R65.20 - Severe sepsis without septic shock Status: Acute Assessment and Plan: patient presented with altered mental status, lactic acidosis, UTI - received a total of 3 L of IV fluids - lactic acid has normalized and now on D5 water for hypernatremia - patient is not requiring pressors at this time blood pressures are stable - given the cavitary lesion in the right lung, patient was switched from ceftriaxone to zosyn, levaquin ( 05/17/21) and vancomycin - blood cultures growing Proteus mirabilis - urine cultures growing Proteus mirabilis, pansensitive - leukocytosis improving check sputum cx, repeat blood cultures BAL cultures are pending (3) Acute UTI: Code(s): N39.0 - Urinary tract infection, site not specified Status: Resolved Assessment and Plan: Proteus UTI antibiotics as above (4) Acute kidney injury: Code(s): N17.9 - Acute kidney failure, unspecified Status: Acute Assessment and Plan: acute kidney injury likely related to dehydration, UTI, hypovolemia, severe sepsis - creatinine on admission was 4.40 ( on 04/06/2021 creatinine was 1.0) - received 3 L IV fluids and continue maintenance IV fluids - creatinine improving, Cr 0.9 this morning - monitor renal function, electrolytes and urine output - replace low potassium level (5) Type 2 diabetes mellitus with hyperglycemia: Code(s): E11.65 - Type 2 diabetes mellitus with hyperglycemia Status: Acute Assessment and Plan: patient presented to hyperglycemia, - on high-dose sliding scale insulin Accu-Cheks (6) Hypernatremia: Code(s): E87.0 - Hyperosmolality and hypernatremia Status: Acute Assessment and Plan: likely related to hypovolemia, dehydration - patient has been given adequate amount of IV fluids - currently on D5 water at 50 mL/hour - nephrology managing - serial BMPs to monitor sodium levels - Na gradually improving (7) Hyperkalemia: Code(s): E87.5 - Hyperkalemia Status: Acute Assessment and Plan: hyperkalemia likely related acute kidney injury - patient has been treated with calcium chloride, insulin and D50, sodium bicarb - patient is now hypokalemic and potassium is being replaced (8) Dementia: Qualifiers: Dementia type: unspecified type Dementia behavioral disturbance: with behavioral disturbance Qualified Code(s): F03.91 - Unspecified dementia with behavioral disturbance Code(s): F03.90 - Unspecified dementia without behavioral disturbance Status: Acute Assessment and Plan: Alzheimer's dementia - according the patient is hard of hearing but is able to communicate, according to him she does not have severe dementia (9) DVT prophylaxis: Code(s): Z29.9 - Encounter for prophylactic measures, unspecified Status: Acute Assessment and Plan: DVT prophylaxis; heparin subcu stress ulcer prophylaxis: Protonix (10) Atrial fibrillation: Code(s): I48.91 - Unspecified atrial fibrillation Status: Acute Assessment and Plan: add aspirin rate is controlled for the most pa
[2021-05-18 14:05] LABS: Chloride Rand Ur 67 mmol/L (32-290); Chloride/Creatinine Rand Ur 3350 (38-318); Creatinine Random Urine 2 mg/dL (20-275)
--- NOTE | 2021-05-18 15:29 | PM.PNNEP ---
Progress Note: A&P Assessment and Plan (1) Hypernatremia: Code(s): E87.0 - Hyperosmolality and hypernatremia Status: Acute Assessment and Plan: patient has hypernatremia. Urine output is not high. This makes it unlikely to be diabetes insipidus. Most likely this is due to free water loss she received D5W yesterday and sodium came down with an appropriate rate. D5W held in the wee hours and then repeat sodium came back 147 so now on D5W [id number]. Will repeat sodium at 4:00 p.m.. (2) Severe sepsis: Code(s): A41.9 - Sepsis, unspecified organism; R65.20 - Severe sepsis without septic shock Status: Acute Assessment and Plan: The patient has Proteus mirabilis in the blood and urine. The patient is on broad-spectrum antibiotics: Vancomycin and Piperacillin as well as Levaquin. The patient also has cavitary lesion in her lung which is why she is on broad-spectrum antibiotics. (3) Cavitary pneumonia: Code(s): J18.9 - Pneumonia, unspecified organism; J98.4 - Other disorders of lung Status: Acute Assessment and Plan: Dr. Bishop On the case. Antibiotics adjusted (4) Urinary retention: Code(s): R33.9 - Retention of urine, unspecified Status: Acute Assessment and Plan: Patient has a Poole catheter in place (5) Metabolic encephalopathy: Code(s): G93.41 - Metabolic encephalopathy Status: Acute Assessment and Plan: due to the above improved a bit. (6) Type 2 diabetes mellitus with hyperglycemia: Code(s): E11.65 - Type 2 diabetes mellitus with hyperglycemia Status: Acute Assessment and Plan: sugars are doing pretty well in the mid 200s. (7) Dementia: Qualifiers: Dementia type: unspecified type Dementia behavioral disturbance: with behavioral disturbance Qualified Code(s): F03.91 - Unspecified dementia with behavioral disturbance Code(s): F03.90 - Unspecified dementia without behavioral disturbance Status: Acute Assessment and Plan: chronic condition Subjective Date/time seen: 05/18/21 15:29 Interval history: Patient is on the ventilator. A little bit more awake, eyes open in regards examiner but does not interact. Review of Systems Cardiovascular: Cardiovascular: Reports no additional cardiovascular complaints Respiratory: Respiratory: Reports no additional respiratory complaints Gastrointestinal: Gastrointestinal: Reports no additional gastrointestinal complaints Genitourinary: Genitourinary: Reports no additional female genitourinary complaints Exam Narrative: Exam Narrative: WDWN Female intubated in NAD skin no rash head ncat lungs coarse bilaterally cor reg no rub abd BS+ nontender and soft ext 1+ edema. Objective Data Vital Signs Vital Signs: Vital Signs - 24 hr 05/17/21 16:00 05/17/21 17:10 05/17/21 18:00 Temperature 36.9 C 36.9 C Pulse Rate 127 H 126 H 120 H Respiratory Rate 24 H 24 H Blood Pressure 115/57 L 108/65 Pulse Oximetry 99 100 100 05/17/21 20:02 05/17/21 20:17 05/17/21 20:21 Temperature Pulse Rate 122 H 119 H 119 H Respiratory Rate 23 H Blood Pressure Pulse Oximetry 100 100 05/17/21 20:23 05/17/21 22:00 05/17/21 23:30 Temperature 36.8 C 37.1 C Pulse Rate 119 H 126 H 130 H Respiratory Rate 23 H 18 Blood Pressure 108/61 122/62 Pulse Oximetry 97 100 100 05/18/21 00:00 05/18/21 02:00 05/18/21 03:15 Temperature 37.3 C Pulse Rate 129 H 116 H 123 H Respiratory Rate 22 H 22 H Blood Pressure 114/66 108/68 Pulse Oximetry 100 94 95 05/18/21 04:00 05/18/21 05:40 05/18/21 06:00 Temperature 36.8 C 37.1 C Pulse Rate 98 119 H 111 H Respiratory Rate 21 H 22 H Blood Pressure 104/67 109/55 L Pulse Oximetry 95 94 95 05/18/21 08:00 05/18/21 08:09 05/18/21 10:00 Temperature 37.0 C Pulse Rate 95 103 H 113 H Respiratory Rate 21 H 18 Blood Pressure
[2021-05-18 15:38] LABS: SARS-CoV-2 RNA PCR Negative
[2021-05-18 17:47] LABS: Glucose Point of Care 252 mg/dl (65-105)
[2021-05-18 18:38] LABS: Anion Gap 3 mmol/L (8-16); Blood Urea Nitrogen 35 mg/dL (7-17); Calcium 7.6 mg/dL (8.4-10.2); Carbon Dioxide 24 mmol/L (22-30); Chloride 114 mmol/L (98-107); Estimated CRCL calculation 36 ml/min; Estimated Glomerular Filt Rate > 60; Glucose 310 mg/dL (65-110); Potassium 4.4 mmol/L (3.4-5.0); Sodium 141 mmol/L (137-145)
[2021-05-18 20:19] LABS: Vancomycin Trough 6.1 ug/mL (10.0-20.0)
[2021-05-18] MEDS: INSULIN GLARGINE (*BKC) 100 UNITS/ML 30 UNITS SUB-Q (20:32)
--- NOTE | 2021-05-18 23:58 | PC.NURSE ---
blood sugar 274
[2021-05-19] VITALS (25 sets, daily range): BP systolic 103–131; BP diastolic 47–66; PULSE 75–103; RESP 17–24; TEMP 36.4–36.9; O2SAT 95–100
[2021-05-19 00:52] LABS: Glucose Point of Care 274 mg/dl (65-105)
[2021-05-19 04:57] LABS: Alveolar/Arterial O2 Gradient 91.8 mmHg; Carboxyhemoglobin 0.3 % THb (0-2.0); Fractional Inspired Oxygen 30 %; Methemoglobin ABG 0.3 %THb (0-1.5); Oxygen Content ABG 13.1 %vol (16.0-22.0); Oxygen Saturation ABG 97.2 % (95.0-100.0); Oxyhemoglobin 95.1 % THb (90.0-100.0); PCO2 ABG 30.3 mmHg (35.0-45.0); PO2 ABG 86.5 mmHg (80.0-100.0); PO2 FiO2 Ratio Arterial Blood 2.88 %; Reduced Hemoglobin 4.3 %THb (0-5.0); Total Hemoglobin 9.7 g/dL (12.0-18.0); pH ABG 7.478 (7.350-7.450)
[2021-05-19 04:58] LABS: Device VENTILATOR; Modified Allen's Test Pass; Site Drawn RIGHT RADIAL
[2021-05-19 05:09] LABS: Hematocrit 23.7 % (37.0-47.0); Hemoglobin 7.2 g/dL (12.0-15.0); Mean Corpuscular HGB Conc 30.4 g/dl (32-36); Mean Corpuscular Hemoglobin 28.8 pg (26-34); Mean Corpuscular Volume 94.8 fl (80-100); Mean Platelet Volume 12.7 fl (7.4-10.4); Platelet Count Result 151 k/mm3 (150-375); Red Cell Distribution Width 14.7 % (11.5-14.5); White Blood Count 11.2 K/mm3 (4.5-10.0)
[2021-05-19 05:22] LABS: Alanine Aminotransferase 20 U/L (4-35); Albumin Level 1.9 g/dL (3.5-5.1); Alkaline Phosphatase 139 U/L (38-126); Anion Gap 2 mmol/L (8-16); Aspartate Amino Transferase 30 U/L (14-36); Bilirubin,Total 0.4 mg/dL (0.2-1.3); Blood Urea Nitrogen 34 mg/dL (7-17); Calcium 7.7 mg/dL (8.4-10.2); Carbon Dioxide 23 mmol/L (22-30); Chloride 117 mmol/L (98-107); Estimated CRCL calculation 41 ml/min; Estimated Glomerular Filt Rate > 60; Glucose 225 mg/dL (65-110); Phosphorus 2.9 mg/dL (2.5-4.5); Potassium 4.5 mmol/L (3.4-5.0); Sodium 142 mmol/L (137-145)
[2021-05-19] MEDS: INSULIN ASPART (*BKC) 100 UNITS/ML SUB-Q ×2 (05:51→12:25)
[2021-05-19] MEDS: CENTRAL LINE FLUSH 10 ML IV PUSH ×4 (05:52→20:53)
[2021-05-19 05:59] LABS: Glucose Point of Care 238 mg/dl (65-105)
[2021-05-19] MEDS: INSULIN GLARGINE (*BKC) 100 UNITS/ML 10 UNITS SUB-Q (08:10)
[2021-05-19] MEDS: ENOXAPARIN 40 MG/0.4 ML SYRINGE SUB-Q (08:12)
[2021-05-19] MEDS: ASPIRIN 325 MG TABLET FEED TUBE (08:13)
[2021-05-19] MEDS: MINERAL OIL/WHITE PETROLATUM OINTMENT 1 APPLIC EACH EYE ×2 (08:14→20:53)
[2021-05-19 08:15] LABS: Glucose Point of Care 215 mg/dl (65-105)
[2021-05-19] MEDS: PANTOPRAZOLE SODIUM IV 40 MG VIAL IV PUSH (08:22)
[2021-05-19 08:46] LABS: Arterial Blood Gas PEEP 5 cmH2O; Arterial Blood Gas Tidal Volume 300 ml; Arterial Blood Gas Vent Mode CMV; Arterial Blood Gas Ventilator rate 14 /MIN
--- NOTE | 2021-05-19 09:21 | WPDINTPN ---
Progress Note: A&P Assessment and Plan (1) Acute respiratory failure: Code(s): J96.00 - Acute respiratory failure, unspecified whether with hypoxia or hypercapnia Status: Acute Assessment and Plan: acute respiratory failure likely related to encephalopathy and altered mental status secondary to severe sepsis and pneumonia - intubated on 05/13 - Is on CMV mode of ventilation, peep of 5, 30% FiO2 - will try pressure support ventilation today - COVID-19 PCR negative - patient is not on any sedation. will try weaning trial once mental status improves - status post bronchoscopy on 05/17 - Chest CT 05/16/2021 showed Right lower lobe predominant multi segmental pneumonia with cavitary region probably necrosis. - plan to repeat CT tomorrow (2) Severe sepsis: Code(s): A41.9 - Sepsis, unspecified organism; R65.20 - Severe sepsis without septic shock Status: Acute Assessment and Plan: patient presented with altered mental status, lactic acidosis, UTI - received a total of 3 L of IV fluids - lactic acid has normalized . she was on D5 water for hypernatremia which is also off now - patient is not requiring pressors at this time blood pressures are stable - given the cavitary lesion in the right lung, patient was switched from ceftriaxone to zosyn, levaquin ( 05/17/21) and vancomycin - blood cultures growing Proteus mirabilis - urine cultures growing Proteus mirabilis, pansensitive - leukocytosis improving - repeat sputum cx,blood cultures negative till now BAL cultures are negative till now plan to repeat chest CT tomorrow (3) Acute UTI: Code(s): N39.0 - Urinary tract infection, site not specified Status: Resolved Assessment and Plan: Proteus UTI antibiotics as above (4) Acute kidney injury: Code(s): N17.9 - Acute kidney failure, unspecified Status: Acute Assessment and Plan: acute kidney injury likely related to dehydration, UTI, hypovolemia, severe sepsis - creatinine on admission was 4.40 ( on 04/06/2021 creatinine was 1.0) - received 3 L IV fluids and continue maintenance IV fluids - creatinine has normalized now - monitor renal function, electrolytes and urine output (5) Type 2 diabetes mellitus with hyperglycemia: Code(s): E11.65 - Type 2 diabetes mellitus with hyperglycemia Status: Acute Assessment and Plan: patient presented to hyperglycemia, - on high-dose sliding scale insulin Accu-Cheks - increased Lantus (6) Hypernatremia: Code(s): E87.0 - Hyperosmolality and hypernatremia Status: Acute Assessment and Plan: likely related to hypovolemia, dehydration - patient has been given adequate amount of IV fluids - c improvement patient is now off of D5 water - continue free water flushes - nephrology following (7) Hyperkalemia: Code(s): E87.5 - Hyperkalemia Status: Acute Assessment and Plan: hyperkalemia likely related acute kidney injury - patient has been treated with calcium chloride, insulin and D50, sodium bicarb - later patient became hypokalemic and potassium was replaced - monitor (8) Dementia: Qualifiers: Dementia type: unspecified type Dementia behavioral disturbance: with behavioral disturbance Qualified Code(s): F03.91 - Unspecified dementia with behavioral disturbance Code(s): F03.90 - Unspecified dementia without behavioral disturbance Status: Acute Assessment and Plan: Alzheimer's dementia - according the patient is hard of hearing but is able to communicate, according to him she does not have severe dementia (9) DVT prophylaxis: Code(s): Z29.9 - Encounter for prophylactic measures, unspecified Status: Acute Assessment and Plan: DVT prophylaxis; heparin subcu stress ulcer prophylaxis: Protonix (10) Atrial fibrillation: Code(s): I48.91 - Unspecified atrial fibrilla
--- NOTE | 2021-05-19 10:16 | PM.PNNEP ---
Progress Note: A&P Assessment and Plan (1) Hypernatremia: Code(s): E87.0 - Hyperosmolality and hypernatremia Status: Acute Assessment and Plan: patient has hypernatremia. due to free water depletion. Sodium level non normal. She is off D5W but on tube feedings. (2) Severe sepsis: Code(s): A41.9 - Sepsis, unspecified organism; R65.20 - Severe sepsis without septic shock Status: Acute Assessment and Plan: The patient has Proteus mirabilis in the blood and urine. Cavitary lesion in the lung on broad-spectrum antibiotic (3) Cavitary pneumonia: Code(s): J18.9 - Pneumonia, unspecified organism; J98.4 - Other disorders of lung Status: Acute Assessment and Plan: Dr. Bishop On the case. Antibiotics adjusted (4) Urinary retention: Code(s): R33.9 - Retention of urine, unspecified Status: Acute Assessment and Plan: Patient has a Poole catheter in place (5) Metabolic encephalopathy: Code(s): G93.41 - Metabolic encephalopathy Status: Acute Assessment and Plan: due to the above (6) Type 2 diabetes mellitus with hyperglycemia: Code(s): E11.65 - Type 2 diabetes mellitus with hyperglycemia Status: Acute Assessment and Plan: sugars are doing pretty well in the mid 200s. (7) Dementia: Qualifiers: Dementia type: unspecified type Dementia behavioral disturbance: with behavioral disturbance Qualified Code(s): F03.91 - Unspecified dementia with behavioral disturbance Code(s): F03.90 - Unspecified dementia without behavioral disturbance Status: Acute Assessment and Plan: chronic condition Subjective Date/time seen: 05/19/21 10:16 Interval history: Patient is on the ventilator. About the same today Exam Narrative: Exam Narrative: WDWN Female intubated in NAD skin no rash or subcu nodules head ncat lungs coarse bilaterally cor reg no rub abd BS+ nontender and soft ext 1+ edema. Objective Data Vital Signs Vital Signs: Vital Signs - 24 hr 05/18/21 10:57 05/18/21 12:00 05/18/21 13:55 Temperature 36.1 C L Pulse Rate 84 79 81 Respiratory Rate 19 Blood Pressure 110/54 L Pulse Oximetry 98 98 100 05/18/21 14:00 05/18/21 16:00 05/18/21 17:05 Temperature 36.1 C L Pulse Rate 83 74 75 Respiratory Rate 19 20 Blood Pressure 115/65 115/45 L Pulse Oximetry 98 99 93 05/18/21 18:00 05/18/21 20:00 05/18/21 20:02 Temperature 36.6 C Pulse Rate 73 74 76 Respiratory Rate 20 20 Blood Pressure 114/47 L 106/51 L Pulse Oximetry 96 100 96 05/18/21 22:00 05/19/21 00:00 05/19/21 00:12 Temperature 36.8 C Pulse Rate 76 85 75 Respiratory Rate 19 21 H Blood Pressure 118/55 L 109/51 L Pulse Oximetry 98 100 95 05/19/21 01:49 05/19/21 02:00 05/19/21 03:35 Temperature Pulse Rate 83 81 81 Respiratory Rate 21 H Blood Pressure 111/59 L Pulse Oximetry 100 96 05/19/21 03:37 05/19/21 03:40 05/19/21 05:09 Temperature 36.9 C Pulse Rate 96 96 79 Respiratory Rate 23 H 21 H Blood Pressure 115/50 L Pulse Oximetry 96 96 100 05/19/21 06:00 05/19/21 08:00 05/19/21 08:07 Temperature Pulse Rate 82 87 101 H Respiratory Rate 21 H 23 H Blood Pressure 103/47 L Pulse Oximetry 98 98 99 Intake/Output Intake/Output: Intake & Output 05/16/21 05/17/21 05/18/21 05/19/21 23:59 23:59 23:59 23:59 Intake Total 4222 1233 1361 960 Output Total 1150 1050 1075 600 Balance 3072 183 286 360 Meds/Results Medications: Active Medications Generic Name Dose Route Start Last Admin Trade Name Freq PRN Reason Stop Dose Admin Acetaminophen 650 mg 05/16/21 23:26 Acetaminophen Elixir 325 Mg/10.15 Ml Udc PO Q6H PRN Mild Pain (1-3) or Fever Aspirin 325 mg 05/19/21 08:00 05/19/21 08:13 Aspirin 325 Mg Tablet FEED TUBE 325 mg DAILY@0800 LOLITA Administration Dextrose 12.5 gm 05/13
[2021-05-19] MEDS: CALCIUM CHLOR 1,000MG/100ML NS 1,000 MG/100 ML BAG 100 MG IVPB (10:27)
[2021-05-19 12:29] LABS: Glucose Point of Care 212 mg/dl (65-105)
--- NOTE | 2021-05-19 13:08 | PCDIET ---
ICU Rounding Note: Patient tolerating Glucerna 1.2 at 45mL/hr goal rate with 100mL water flush every 4 hours. Last recorded weight is 63.6kg which is increased from last review. +I/O. Bowel Motility: +BM today x 1. Labs Reviewed: WBC (11.2), RBC (2.5), Hgb (7.2), Hct (23.7), Glu (225), BUN (34), Alb (1.9), Rosalva Ca (9.38), Cl (117) Meds Noted: Novolog, Lantus, Levaquin, Protonix, Zosyn, Vancomycin, Calcium Chloride Additional Notes: No documented pressure sores. Following daily in ICU rounds. Assessing/reassessing every Monday/Monday.
--- NOTE | 2021-05-19 13:45 | PM.IMPN ---
Progress Note: A&P Assessment and Plan (1) Acute respiratory failure: Code(s): J96.00 - Acute respiratory failure, unspecified whether with hypoxia or hypercapnia Status: Acute Assessment and Plan: acute respiratory failure likely related to metabolic encephalopathy secondary to severe sepsis and pneumonia - intubated on 05/13 - Is on CMV mode of ventilation, peep of 5, 30% FiO2 - COVID-19 PCR negative - patient is not on any sedation, weaning trial once mental status improves - status post bronchoscopy on 05/17 - Chest CT 05/16/2021 showed Right lower lobe predominant multi segmental pneumonia with cavitary region probably necrosis. - remains intubated defer to cc construction millwright timing of extubation (2) Severe sepsis: Code(s): A41.9 - Sepsis, unspecified organism; R65.20 - Severe sepsis without septic shock Status: Acute Assessment and Plan: patient presented with altered mental status, lactic acidosis, UTI - received a total of 3 L of IV fluids - lactic acid has normalized . she was on D5 water for hypernatremia which is also off now - patient is not requiring pressors at this time blood pressures are stable - given the cavitary lesion in the right lung, patient was switched from ceftriaxone to zosyn, levaquin ( 05/17/21) and vancomycin - blood cultures growing Proteus mirabilis - urine cultures growing Proteus mirabilis, pansensitive - leukocytosis improving - repeat sputum cx,blood cultures negative till now BAL cultures are negative till now ID following (3) Acute UTI: Code(s): N39.0 - Urinary tract infection, site not specified Status: Resolved Assessment and Plan: Proteus UTI antibiotics as above (4) Acute kidney injury: Code(s): N17.9 - Acute kidney failure, unspecified Status: Acute Assessment and Plan: resolved acute kidney injury likely related to dehydration, UTI, hypovolemia, severe sepsis - creatinine on admission was 4.40 ( on 04/06/2021 creatinine was 1.0) - received 3 L IV fluids and continue maintenance IV fluids - monitor renal function, electrolytes and urine output -nephro following (5) Type 2 diabetes mellitus with hyperglycemia: Code(s): E11.65 - Type 2 diabetes mellitus with hyperglycemia Status: Acute Assessment and Plan: - on high-dose sliding scale insulin Accu-Cheks - cont Lantus (6) Hypernatremia: Code(s): E87.0 - Hyperosmolality and hypernatremia Status: Acute Assessment and Plan: likely related to hypovolemia, dehydration - patient has been given adequate amount of IV fluids - continue free water flushes - nephrology following (7) Hyperkalemia: Code(s): E87.5 - Hyperkalemia Status: Acute Assessment and Plan: hyperkalemia likely related acute kidney injury - patient has been treated with calcium chloride, insulin and D50, sodium bicarb - later patient became hypokalemic and potassium was replaced - monitor (8) Dementia: Qualifiers: Dementia behavioral disturbance: with behavioral disturbance Dementia type: unspecified type Qualified Code(s): F03.91 - Unspecified dementia with behavioral disturbance Code(s): F03.90 - Unspecified dementia without behavioral disturbance Status: Acute Assessment and Plan: Alzheimer's dementia - according the patient is hard of hearing but is able to communicate, according to him she does not have severe dementia (medical record shows pt was discharged AAOx1 from last admission) (9) DVT prophylaxis: Code(s): Z29.9 - Encounter for prophylactic measures, unspecified Status: Acute Assessment and Plan: DVT prophylaxis; heparin subcu stress ulcer prophylaxis: Protonix (10) Atrial fibrillation: Code(s): I48.91 - Unspecified atrial fibrillation Status: Acute Assessment and Plan: patient now in normal sinus rhyth
[2021-05-19 16:44] LABS: Anion Gap 3 mmol/L (8-16); Blood Urea Nitrogen 31 mg/dL (7-17); Calcium 8.4 mg/dL (8.4-10.2); Carbon Dioxide 24 mmol/L (22-30); Chloride 115 mmol/L (98-107); Estimated CRCL calculation 46 ml/min; Estimated Glomerular Filt Rate > 60; Glucose 169 mg/dL (65-110); Potassium 3.9 mmol/L (3.4-5.0); Sodium 142 mmol/L (137-145)
[2021-05-19 18:16] LABS: Glucose Point of Care 164 mg/dl (65-105)
[2021-05-19] MEDS: INSULIN GLARGINE (*BKC) 100 UNITS/ML 40 UNITS SUB-Q (21:03)
[2021-05-19 21:06] LABS: Glucose Point of Care 177 mg/dl (65-105)
[2021-05-19 23:42] LABS: Glucose Point of Care 211 mg/dl (65-105)
[2021-05-20] VITALS (26 sets, daily range): BP systolic 98–128; BP diastolic 45–63; PULSE 62–90; RESP 17–23; TEMP 36.4–36.8; O2SAT 95–100
[2021-05-20] MEDS: INSULIN ASPART (*BKC) 100 UNITS/ML SUB-Q (00:10)
[2021-05-20 04:37] LABS: Hematocrit 21.3 % (37.0-47.0); Mean Corpuscular Hemoglobin 29.1 pg (26-34); Mean Corpuscular Volume 93.8 fl (80-100); Mean Platelet Volume 12.2 fl (7.4-10.4); Platelet Count Result 165 k/mm3 (150-375); Red Blood Count 2.27 M/mm3 (4.2-5.4); Red Cell Distribution Width 14.5 % (11.5-14.5); White Blood Count 10.1 K/mm3 (4.5-10.0)
[2021-05-20] MEDS: CENTRAL LINE FLUSH 10 ML IV PUSH ×4 (04:38→20:40)
[2021-05-20 04:46] LABS: Hemoglobin 6.6 g/dL (12.0-15.0)
[2021-05-20 05:35] LABS: Alanine Aminotransferase 17 U/L (4-35); Albumin Level 1.5 g/dL (3.5-5.1); Alkaline Phosphatase 114 U/L (38-126); Anion Gap 3 mmol/L (8-16); Aspartate Amino Transferase 19 U/L (14-36); Bilirubin,Total 0.3 mg/dL (0.2-1.3); Blood Urea Nitrogen 31 mg/dL (7-17); Calcium 7.9 mg/dL (8.4-10.2); Carbon Dioxide 23 mmol/L (22-30); Chloride 113 mmol/L (98-107); Estimated CRCL calculation 46 ml/min; Estimated Glomerular Filt Rate > 60; Glucose 180 mg/dL (65-110); Magnesium 1.8 mg/dL (1.6-2.3); Phosphorus 3.5 mg/dL (2.5-4.5); Potassium 4.1 mmol/L (3.4-5.0); Sodium 139 mmol/L (137-145)
[2021-05-20 05:48] LABS: Alveolar/Arterial O2 Gradient 84.7 mmHg; Base Excess ABG -0.5 mEq/l (+/-2.0); Carboxyhemoglobin 0.3 % THb (0-2.0); Fractional Inspired Oxygen 30 %; HCO3 ABG 22.5 mEq/l (22.0-26.0); Oxygen Content ABG 14.6 %vol (16.0-22.0); Oxygen Saturation ABG 97.6 % (95.0-100.0); Oxyhemoglobin 95.9 % THb (90.0-100.0); PCO2 ABG 31.3 mmHg (35.0-45.0); PO2 ABG 92.4 mmHg (80.0-100.0); PO2 FiO2 Ratio Arterial Blood 3.08 %; Reduced Hemoglobin 3.8 %THb (0-5.0); Total Hemoglobin 10.7 g/dL (12.0-18.0); pH ABG 7.475 (7.350-7.450)
[2021-05-20 05:49] LABS: Device VENTILATOR; Modified Allen's Test Pass; Site Drawn RIGHT RADIAL
[2021-05-20 05:50] LABS: Arterial Blood Gas PEEP 5 cmH2O; Arterial Blood Gas Tidal Volume 300 ml; Arterial Blood Gas Vent Mode CMV; Arterial Blood Gas Ventilator rate 14 /MIN
--- NOTE | 2021-05-20 07:35 | P.PNIM_ITS ---
Progress Note: A&P Assessment and Plan (1) Acute respiratory failure: Code(s): J96.00 - Acute respiratory failure, unspecified whether with hypoxia or hypercapnia Status: Acute Assessment and Plan: acute respiratory failure likely related to metabolic encephalopathy secondary to severe sepsis and pneumonia - intubated on 05/13 - Is on CMV mode of ventilation, peep of 5, 30% FiO2 - COVID-19 PCR negative - patient is not on any sedation, weaning trial once mental status improves - status post bronchoscopy on 05/17 - Chest CT 05/16/2021 showed Right lower lobe predominant multi segmental pneumonia with cavitary region probably necrosis. - remains intubated defer to cc pencils washer timing of extubation (2) Severe sepsis: Code(s): A41.9 - Sepsis, unspecified organism; R65.20 - Severe sepsis without septic shock Status: Acute Assessment and Plan: patient presented with altered mental status, lactic acidosis, UTI - received a total of 3 L of IV fluids - lactic acid has normalized . she was on D5 water for hypernatremia which is also off now - patient is not requiring pressors at this time blood pressures are stable - given the cavitary lesion in the right lung, patient was switched from ceftriaxone to zosyn, levaquin ( 05/17/21) and vancomycin - blood cultures growing Proteus mirabilis - urine cultures growing Proteus mirabilis, pansensitive - leukocytosis improving - repeat sputum cx,blood cultures negative till now BAL cultures are negative till now ID following (3) Acute UTI: Code(s): N39.0 - Urinary tract infection, site not specified Status: Resolved Assessment and Plan: Proteus UTI antibiotics as above (4) Acute kidney injury: Code(s): N17.9 - Acute kidney failure, unspecified Status: Acute Assessment and Plan: resolved acute kidney injury likely related to dehydration, UTI, hypovolemia, severe sepsis - creatinine on admission was 4.40 ( on 04/06/2021 creatinine was 1.0) - received 3 L IV fluids and continue maintenance IV fluids - monitor renal function, electrolytes and urine output -nephro following (5) Type 2 diabetes mellitus with hyperglycemia: Code(s): E11.65 - Type 2 diabetes mellitus with hyperglycemia Status: Acute Assessment and Plan: - on high-dose sliding scale insulin Accu-Cheks - cont Lantus (6) Hypernatremia: Code(s): E87.0 - Hyperosmolality and hypernatremia Status: Acute Assessment and Plan: likely related to hypovolemia, dehydration - patient has been given adequate amount of IV fluids - continue free water flushes - nephrology following (7) Hyperkalemia: Code(s): E87.5 - Hyperkalemia Status: Acute Assessment and Plan: hyperkalemia likely related acute kidney injury - patient has been treated with calcium chloride, insulin and D50, sodium bicarb - later patient became hypokalemic and potassium was replaced - monitor (8) Dementia: Qualifiers: Dementia behavioral disturbance: with behavioral disturbance Dementia type: unspecified type Qualified Code(s): F03.91 - Unspecified dementia with behavioral disturbance Code(s): F03.90 - Unspecified dementia without behavioral disturbance Status: Acute Assessment and Plan: Alzheimer's dementia - according the patient is hard of hearing but is able to communicate, according to him she does not have severe dementia (medical record shows pt was discharged AAOx1 from last admission) (9) DVT pro
[2021-05-20] MEDS: MINERAL OIL/WHITE PETROLATUM OINTMENT 1 APPLIC EACH EYE ×2 (08:55→20:40)
[2021-05-20] MEDS: ENOXAPARIN 40 MG/0.4 ML SYRINGE SUB-Q (08:55)
[2021-05-20] MEDS: PANTOPRAZOLE SODIUM IV 40 MG VIAL IV PUSH ×2 (08:55→20:40)
[2021-05-20] MEDS: ASPIRIN 325 MG TABLET FEED TUBE (08:55)
--- NOTE | 2021-05-20 09:02 | PM.PNPUL ---
Progress Note: A&P Assessment and Plan (1) Cavitary pneumonia: Code(s): J18.9 - Pneumonia, unspecified organism; J98.4 - Other disorders of lung Status: Acute Assessment and Plan: 05/17 Patient with worsening right lower lobe infiltrate now with a cavitary lesion. Patient had a normal chest x-ray on 04/06/21 making cancer less likely. Patient may have an endobronchial lesion and or may have aspirated a foreign body given her dementia. I recommended bronchoscopy and spoke with the who has provided consent. Patient will have 7.0 ET tube change to accommodate bronchoscopy. Worsening cavitary pneumonia despite ceftriaxone I agree with broadening antibiotics and patient is on vancomycin since 05/15, Zosyn since 05/17 and Levaquin will be added on 05/17. Will send sputum culture and obtain cultures from bronchoscopy. Will follow patient clinically and radiologically to determine if she is responding to broaden antibiotic coverage. 05/18 WBC 12.3, afebrile (last fever 05/16at 23:23). CXR no change in RLL cavitary pneumonia. COVID pending. All these cultures obtained on 05/17 after ceftriaxone 05/13-05/17, on vanco since 05/13 and zosyn 05/17 Sputum from ETT gram stain mixed yaa. Washings GRAM STAIN: Few epithelial cells, Many WBC, moderate GPB, moderate GPC. BAL gram stain with WBC, moderate GPB, few GPC and GNR. QNS for culture Will follow cultures and follow clinically with WBC trend, fever trend, CXR and repeat CT scan to assess RLL cavitary pneumonia response to antibiotics. Will follow PRN. 05/20 WBC 10.1, afebrile, Bronchial wash while the patient was receiving ceftriaxone, vancomycin and Zosyn is normal yaa. White blood cell count 10.1. Afebrile. Chest x-ray with unchanged cavity right midlung field and stable bilateral infiltrates. To have CT scan of the chest today to reassess RLL cavity. Discussed with Dr. Moeller, will follow with you PRN. Subjective Date/time seen: 05/20/21 09:02 Interval history: Date/time seen: 05/18/21 09:33 this is a new pulmonary consult for cavitary pneumonia in the right lower lobe 80-year-old female with dementia with indwelling rios, hypertension, diabetes, hypothyroidism, coronary artery disease status post bypass, history of breast cancer presented to the emergency room from the retirement on 05/13 and was found to have altered mental status, acute kidney injury, lactic acidosis, Prieb Earlene drainage from the urethra and later found to have a Proteus mirabilis UTI and bacteremia. Patient was fluid resuscitated and started on pressors and ceftriaxone. Right lower lobe infiltrate became progressively worse and on 05/16 there was suggestion of a cavitary lesion. High-resolution CT scan documented a right lower lobe consolidation with likely necrosis. Patient was started on vancomycin on 05/15 and on Zosyn on 05/17. Pateint is DNR. I was consulted on 05/18. Past imaging demonstrated a chest x-ray on 04/06/2021 demonstrated no acute cardiopulmonary disease. 05/18 Patient is not sedated and not on pressors. She is not following commands and intubated on 30% FiO2 peep of 5 with ABG 7.56//. ETT 7.0. WBC 15.7K. Underwent bedside bronchoscopy and purulent secretions in RLL and superior segment RLL and no foreign body or endobronchail lesion in RLL. Cultures sent. Levaquin started. 05/19 Remains intubated, port surveyor LUE. On 30% and 5 peep with ABG 7.51//84. BAL gram stain with WBC, moderate GPB, few GPC and GNR. WBC 12.3, afebrile. CXR no change in RLL cavitary pneumonia. 05/21 Remains intubated not following commands on 30% and peep of 5 with ABG 7.48//. Bronchial wash while the patient was receiving ceftriaxone, vancomycin and Zosyn is normal yaa. White blood cell count 10.1. Afebrile. Chest x-ray with unchanged cavity right midlung field and stable bilateral infiltrates. To have CT scan of the chest today. Review of
[2021-05-20] MEDS: SODIUM CHLORIDE 0.9% IV 250 ML 30 ML IV CONT (09:06)
--- NOTE | 2021-05-20 11:13 | WPDINTPN ---
Progress Note: A&P Assessment and Plan (1) Acute respiratory failure: Code(s): J96.00 - Acute respiratory failure, unspecified whether with hypoxia or hypercapnia Status: Acute Assessment and Plan: acute respiratory failure likely related to encephalopathy and altered mental status secondary to severe sepsis and pneumonia - intubated on 05/13 - Chest CT 05/16/2021 showed Right lower lobe predominant multi segmental pneumonia with cavitary region probably necrosis. - status post bronchoscopy on 05/17 - Is on CMV mode of ventilation, peep of 5, 30% FiO2 - patient was placed on pressure support ventilation yesterday. Her RSBI was adequate but patient mental status and significantly weak cough reflex prevents extubation as patient may not be able to clear airway. - Patient was placed again on pressure support ventilation today - CT scan of the chest was repeated today and showed Increase in size of cavitary right lower lobe mass most likely necrotic pneumonia. Underlying cancer not totally excludable - discussed with pulmonary and they recommend transfer to a hospital with thoracic surgery consultation for evaluation. Will discuss with patient's - COVID-19 PCR negative (2) Severe sepsis: Code(s): A41.9 - Sepsis, unspecified organism; R65.20 - Severe sepsis without septic shock Status: Acute Assessment and Plan: patient presented with altered mental status, lactic acidosis, UTI - received a total of 3 L of IV fluids - lactic acid has normalized . she was on D5 water for hypernatremia which is also off now - patient is not requiring pressors at this time blood pressures are stable - given the cavitary lesion in the right lung, patient was switched from ceftriaxone to zosyn, levaquin ( 05/17/21) and vancomycin - blood cultures growing Proteus mirabilis - urine cultures growing Proteus mirabilis, pansensitive - leukocytosis improving. afebrile - repeat sputum cx,blood cultures negative till now BAL cultures are negative till now repeat CT performed today see above (3) Acute UTI: Code(s): N39.0 - Urinary tract infection, site not specified Status: Resolved Assessment and Plan: Proteus UTI antibiotics as above (4) Acute kidney injury: Code(s): N17.9 - Acute kidney failure, unspecified Status: Acute Assessment and Plan: acute kidney injury likely related to dehydration, UTI, hypovolemia, severe sepsis - creatinine on admission was 4.40 ( on 04/06/2021 creatinine was 1.0) - received 3 L IV fluids and continue maintenance IV fluids - creatinine has normalized now - monitor renal function, electrolytes and urine output (5) Type 2 diabetes mellitus with hyperglycemia: Code(s): E11.65 - Type 2 diabetes mellitus with hyperglycemia Status: Acute Assessment and Plan: patient presented to hyperglycemia, - continue Lantus and sliding scale (6) Hypernatremia: Code(s): E87.0 - Hyperosmolality and hypernatremia Status: Acute Assessment and Plan: likely related to hypovolemia, dehydration - patient has been given adequate amount of IV fluids - c improvement patient is now off of D5 water - continue free water flushes - nephrology following (7) Dementia: Qualifiers: Dementia behavioral disturbance: with behavioral disturbance Dementia type: unspecified type Qualified Code(s): F03.91 - Unspecified dementia with behavioral disturbance Code(s): F03.90 - Unspecified dementia without behavioral disturbance Status: Acute Assessment and Plan: Alzheimer's dementia - according the patient is hard of hearing but is able to communicate, according to him she does not have severe dementia (8) DVT prophylaxis: Code(s): Z29.9 - Encounter for prophylactic measures, unspecified Status: Acute Assessment and Plan: DVT prophylaxis; heparin subcu
--- NOTE | 2021-05-20 11:16 | PM.PNNEP ---
Progress Note: A&P Assessment and Plan (1) Hypernatremia: Code(s): E87.0 - Hyperosmolality and hypernatremia Status: Acute Assessment and Plan: patient has hypernatremia. This is resolved. We will sign off the case. (2) Severe sepsis: Code(s): A41.9 - Sepsis, unspecified organism; R65.20 - Severe sepsis without septic shock Status: Acute Assessment and Plan: The patient has Proteus mirabilis in the blood and urine. Cavitary lesion in the lung on broad-spectrum antibiotic (3) Cavitary pneumonia: Code(s): J18.9 - Pneumonia, unspecified organism; J98.4 - Other disorders of lung Status: Acute Assessment and Plan: Dr. Bishop On the case. Antibiotics adjusted (4) Urinary retention: Code(s): R33.9 - Retention of urine, unspecified Status: Acute Assessment and Plan: Patient has a Poole catheter in place (5) Metabolic encephalopathy: Code(s): G93.41 - Metabolic encephalopathy Status: Acute Assessment and Plan: due to the above (6) Type 2 diabetes mellitus with hyperglycemia: Code(s): E11.65 - Type 2 diabetes mellitus with hyperglycemia Status: Acute Assessment and Plan: sugars are doing pretty well in the mid 200s. (7) Dementia: Qualifiers: Dementia type: unspecified type Dementia behavioral disturbance: with behavioral disturbance Qualified Code(s): F03.91 - Unspecified dementia with behavioral disturbance Code(s): F03.90 - Unspecified dementia without behavioral disturbance Status: Acute Assessment and Plan: chronic condition Subjective Date/time seen: 05/20/21 11:16 Interval history: Patient is on the ventilator. Not interactive. Exam Narrative: WDWN Female intubated in NAD skin no rash or subcu nodules head ncat lungs coarse bilaterally cor reg no rub abd BS+ nontender and soft ext 1+ edema. Objective Data Vital Signs Vital Signs: Vital Signs - 24 hr 05/19/21 12:00 05/19/21 13:03 05/19/21 14:00 Temperature 36.4 C Pulse Rate 99 92 90 Respiratory Rate 24 H 20 Blood Pressure 127/66 115/55 L Pulse Oximetry 96 96 96 05/19/21 16:00 05/19/21 16:41 05/19/21 18:00 Temperature 36.6 C Pulse Rate 99 100 102 H Respiratory Rate 21 H 18 Blood Pressure 131/58 L 113/61 Pulse Oximetry 100 99 99 05/19/21 20:00 05/19/21 21:16 05/19/21 21:17 Temperature 36.4 C L Pulse Rate 102 H 93 102 H Respiratory Rate 18 18 Blood Pressure 103/58 L Pulse Oximetry 100 99 99 05/19/21 22:00 05/19/21 23:06 05/19/21 23:54 Temperature Pulse Rate 80 100 92 Respiratory Rate 17 18 Blood Pressure 109/55 L Pulse Oximetry 99 99 99 05/20/21 00:00 05/20/21 02:00 05/20/21 03:10 Temperature 36.6 C Pulse Rate 89 79 85 Respiratory Rate 17 18 Blood Pressure 106/56 L 114/61 Pulse Oximetry 97 98 99 05/20/21 03:26 05/20/21 04:00 05/20/21 05:39 Temperature 36.8 C Pulse Rate 76 72 86 Respiratory Rate 18 18 Blood Pressure 110/63 Pulse Oximetry 99 98 95 05/20/21 06:00 05/20/21 08:00 05/20/21 09:15 Temperature 36.7 C Pulse Rate 77 85 88 Respiratory Rate 19 19 Blood Pressure 103/53 L 98/48 L Pulse Oximetry 99 99 98 05/20/21 10:00 05/20/21 10:22 05/20/21 10:23 Temperature 36.4 C L 36.5 C Pulse Rate 70 90 79 Respiratory Rate 22 H 20 Blood Pressure 117/51 L 116/45 L Pulse Oximetry 100 95 97 05/20/21 10:38 Temperature 36.4 C L Pulse Rate 82 Respiratory Rate 23 H Blood Pressure 116/52 L Pulse Oximetry 99 Intake/Output Intake/Output: Intake & Output 05/17/21 05/18/21 05/19/21 05/20/21 23:59 23:59 23:59 23:59 Intake Total 1233 1361 2335 885 Output Total 1050 1075 1150 400 Balance 352 023 3919 485 Meds/Results Medications: Active Medications Generic Name Dose Route Start Last Admin Trade Name Freq PRN Reason Stop Dose Admin Acetaminophen 650 mg 05/16/21 2
--- NOTE | 2021-05-20 11:31 | PCDIET ---
ICU Rounding Note: Patient tolerating Glucerna 1.2 at 45mL/hr goal rate with 100mL water flush every 4 hours. Last recorded weight is 63.8kg which is stable with last review. +I/O. Bowel Motility: BM x 1 today. Labs Reviewed: WBC (10.1), RBC (2.27), Hgb (6.6), Hct (21.3), Glu (180), Cl (113), Alb (1.5), Rosalva Ca (9.9) Meds Noted: Lantus, Levaquin, Protonix Additional Notes: Buttocks macerated. Following daily in ICU rounds. Assessing/reassessing every Monday/Monday.
[2021-05-20 11:45] LABS: Glucose Point of Care 132 mg/dl (65-105)
--- NOTE | 2021-05-20 14:54 | PM.EVENT ---
Event Note Event Note Event Note: spoke to patient's by phone and then at bedside. I updated him with patient's current status, CT results, current treatment plan and overall guarded prognosis. I explained him that we may have to transfer patient to tertiary facility for thoracic surgery consultation and patient may need surgery to treat the necrotic cavitary pneumonia versus abscess. Patient's told me that she is very weak and would not want any surgery at this time. He does not want her to be transferred to any other facility and wants to continue current treatment plan to see if she gets better. He verbalized understanding that she may not get better with conservative management and may because of. He does want to continue current management including mechanical ventilation and antibiotic therapy for now.. I spoke to him in presence of patient's nurse Edilia. additional critical care time 20 minutes
[2021-05-20 18:23] LABS: Glucose Point of Care 137 mg/dl (65-105)
[2021-05-20] MEDS: INSULIN GLARGINE (*BKC) 100 UNITS/ML 40 UNITS SUB-Q (20:48)
[2021-05-20 20:51] LABS: Glucose Point of Care 152 mg/dl (65-105)
[2021-05-21] VITALS (14 sets, daily range): BP systolic 101–135; BP diastolic 33–83; PULSE 59–100; RESP 14–23; TEMP 33.8–37.1; O2SAT 88–100
[2021-05-21 00:18] LABS: Glucose Point of Care 175 mg/dl (65-105)
[2021-05-21] MEDS: CENTRAL LINE FLUSH 10 ML IV PUSH (05:09)
[2021-05-21 05:19] LABS: Hemoglobin 9.1 g/dL (12.0-15.0); Mean Corpuscular HGB Conc 32.5 g/dl (32-36); Mean Corpuscular Hemoglobin 28.7 pg (26-34); Mean Corpuscular Volume 88.3 fl (80-100); Mean Platelet Volume 11.9 fl (7.4-10.4); Platelet Count Result 204 k/mm3 (150-375); Red Blood Count 3.17 M/mm3 (4.2-5.4); Red Cell Distribution Width 14.9 % (11.5-14.5); White Blood Count 9.1 K/mm3 (4.5-10.0)
[2021-05-21 05:33] LABS: Alveolar/Arterial O2 Gradient 71.2 mmHg; Base Excess ABG 0.6 mEq/l (+/-2.0); Carboxyhemoglobin 0.3 % THb (0-2.0); Device VENTILATOR; Fractional Inspired Oxygen 30 %; HCO3 ABG 23.8 mEq/l (22.0-26.0); Methemoglobin ABG 0.2 %THb (0-1.5); Modified Allen's Test Pass; Oxygen Content ABG 14.9 %vol (16.0-22.0); Oxygen Saturation ABG 98.1 % (95.0-100.0); Oxyhemoglobin 96.8 % THb (90.0-100.0); PCO2 ABG 33.1 mmHg (35.0-45.0); PO2 ABG 103.8 mmHg (80.0-100.0); PO2 FiO2 Ratio Arterial Blood 3.46 %; Reduced Hemoglobin 2.7 %THb (0-5.0); Site Drawn RIGHT RADIAL; Total Hemoglobin 10.8 g/dL (12.0-18.0); pH ABG 7.475 (7.350-7.450)
[2021-05-21 05:34] LABS: Arterial Blood Gas Vent Mode CMV; Arterial Blood Gas Ventilator rate 14 /MIN
[2021-05-21 05:35] LABS: Alanine Aminotransferase 17 U/L (4-35); Albumin Level 1.6 g/dL (3.5-5.1); Alkaline Phosphatase 117 U/L (38-126); Anion Gap 5 mmol/L (8-16); Arterial Blood Gas PEEP 5 cmH2O; Arterial Blood Gas Tidal Volume 300 ml; Aspartate Amino Transferase 21 U/L (14-36); Bilirubin,Total 0.4 mg/dL (0.2-1.3); Blood Urea Nitrogen 27 mg/dL (7-17); Calcium 7.7 mg/dL (8.4-10.2); Carbon Dioxide 24 mmol/L (22-30); Chloride 108 mmol/L (98-107); Estimated CRCL calculation 47 ml/min; Estimated Glomerular Filt Rate > 60; Glucose 153 mg/dL (65-110); Magnesium 1.7 mg/dL (1.6-2.3); Phosphorus 3.2 mg/dL (2.5-4.5); Potassium 3.7 mmol/L (3.4-5.0); Sodium 137 mmol/L (137-145)
[2021-05-21 05:45] LABS: Glucose Point of Care 168 mg/dl (65-105)
[2021-05-21 07:01] LABS: Osmolality, Urine 565 mOsm/kg (50-1200)
--- NOTE | 2021-05-21 07:50 | PM.PNPUL ---
Progress Note: A&P Assessment and Plan (1) Cavitary pneumonia: Code(s): J18.9 - Pneumonia, unspecified organism; J98.4 - Other disorders of lung Status: Acute Assessment and Plan: 05/17 Patient with worsening right lower lobe infiltrate now with a cavitary lesion. Patient had a normal chest x-ray on 04/06/21 making cancer less likely. Patient may have an endobronchial lesion and or may have aspirated a foreign body given her dementia. I recommended bronchoscopy and spoke with the who has provided consent. Patient will have 7.0 ET tube change to accommodate bronchoscopy. Worsening cavitary pneumonia despite ceftriaxone I agree with broadening antibiotics and patient is on vancomycin since 05/13, Zosyn since 05/17 and Levaquin will be added on 05/17. Will send sputum culture and obtain cultures from bronchoscopy. Will follow patient clinically and radiologically to determine if she is responding to broaden antibiotic coverage. 05/18 WBC 12.3, afebrile (last fever 05/16at 23:23). CXR no change in RLL cavitary pneumonia. COVID pending. All these cultures obtained on 05/17 after ceftriaxone 05/13-05/17, on vanco since 05/13 and zosyn 05/17 Sputum from ETT gram stain mixed yaa. Washings GRAM STAIN: Few epithelial cells, Many WBC, moderate GPB, moderate GPC. BAL gram stain with WBC, moderate GPB, few GPC and GNR. QNS for culture Will follow cultures and follow clinically with WBC trend, fever trend, CXR and repeat CT scan to assess RLL cavitary pneumonia response to antibiotics. Will follow PRN. 05/20 WBC 10.1, afebrile, Bronchial wash while the patient was receiving ceftriaxone, vancomycin and Zosyn is normal yaa. White blood cell count 10.1. Afebrile. Chest x-ray with unchanged cavity right midlung field and stable bilateral infiltrates. To have CT scan of the chest today to reassess RLL cavity. CT demonstrated larger cavity and hand engraver spoke to who wished not to transfer for thoracic surgery consultation and to continue medical management. 05/21 Patient remains intubated not following commands on 30% and 5 of peep. White blood cell count is 9.1. Chest x-ray with right lower lobe infiltrate and cavity is not appreciated on today's film. Will send fungal culture. Family wishes for medical management. Bronch wash with normal yaa. Pseudomonas aeruginosa from sputum (sensitive to cefepime, gent, imi, , tobra. Intermediate to zosyn. Resistant to ancef, cipro and levoflox). I would change to imipenem. Consider ID consultation for this resistant organism. Discussed with Dr. Zee, will sign off for now, call with questions. Subjective Date/time seen: 05/21/21 07:50 Interval history: Date/time seen: 05/18/21 09:33 this is a new pulmonary consult for cavitary pneumonia in the right lower lobe 80-year-old female with dementia with indwelling rios, hypertension, diabetes, hypothyroidism, coronary artery disease status post bypass, history of breast cancer presented to the emergency room from the senior care on 05/13 and was found to have altered mental status, acute kidney injury, lactic acidosis, Prieb Earlene drainage from the urethra and later found to have a Proteus mirabilis UTI and bacteremia. Patient was fluid resuscitated and started on pressors and ceftriaxone. Right lower lobe infiltrate became progressively worse and on 05/16 there was suggestion of a cavitary lesion. High-resolution CT scan documented a right lower lobe consolidation with likely necrosis. Patient was started on vancomycin on 05/13 and on Zosyn on 05/17. Pateint is DNR. I was consulted on 05/18. Past imaging demonstrated a chest x-ray on 04/06/2021 demonstrated no acute cardiopulmonary disease. 05/18 Patient is not sedated and not on pressors. She is not following commands and intubated on 30% FiO2 peep of 5 with ABG 7.56/. ETT 7.0. WBC 15.7K. Underwent bedside bronchoscop
--- NOTE | 2021-05-21 10:06 | WPDUROPN2 ---
Progress Note: A&P Assessment and Plan (1) Urinary retention: Code(s): R33.9 - Retention of urine, unspecified Status: Acute Additional Plan Catheter draining well, urine clear. Renal function has returned to normal. Renal ultrasound shows no hydronephrosis. will need chronic Poole catheter with monthly changes for atonic bladder. Subjective Subjective Date/Time Seen: 05/21/21 10:06 Intubated Review of Systems Review of Systems: ROS unobtainable: Yes unobtainable due to endotracheal tube, unobtainable due to medical condition and unobtainable due to mental status Exam Const: General: no acute distress Resp: Effort & Inspection: normal respiratory effort GI: Inspection: non-distended Auscultation: normal bowel sounds Urinary Catheter: Urinary Catheter: patent and draining and urine clear Objective Data Vital Signs Vital Signs: Vital Signs - 24 hr 05/20/21 10:22 05/20/21 10:23 05/20/21 10:38 Temperature 97.7 F 97.5 F L Pulse Rate 90 79 82 Respiratory Rate 20 23 H Blood Pressure 116/45 L 116/52 L Pulse Oximetry 95 97 99 05/20/21 11:38 05/20/21 12:00 05/20/21 12:29 Temperature 97.7 F 97.7 F Pulse Rate 77 75 69 Respiratory Rate 19 19 Blood Pressure 117/58 L 120/57 L Pulse Oximetry 100 100 100 05/20/21 12:38 05/20/21 13:09 05/20/21 14:00 Temperature 97.6 F 97.7 F Pulse Rate 72 66 62 Respiratory Rate 20 19 20 Blood Pressure 108/49 L 116/51 L 108/49 L Pulse Oximetry 100 100 100 05/20/21 15:27 05/20/21 16:00 05/20/21 18:00 Temperature 97.8 F Pulse Rate 74 62 90 Respiratory Rate 19 22 H Blood Pressure 115/47 L 123/50 L Pulse Oximetry 100 100 99 05/20/21 19:45 05/20/21 20:00 05/20/21 22:00 Temperature 97.7 F Pulse Rate 79 83 77 Respiratory Rate 18 19 Blood Pressure 125/49 L 128/50 L Pulse Oximetry 100 99 100 05/20/21 22:45 05/21/21 00:00 05/21/21 02:00 Temperature 98.2 F Pulse Rate 77 78 62 Respiratory Rate 16 16 Blood Pressure 119/54 L 123/50 L Pulse Oximetry 100 100 97 05/21/21 02:20 05/21/21 04:00 05/21/21 06:00 Temperature 97.7 F Pulse Rate 63 59 L 66 Respiratory Rate 14 14 Blood Pressure 121/52 L 113/56 L Pulse Oximetry 97 98 96 05/21/21 08:18 Temperature Pulse Rate 71 Respiratory Rate Blood Pressure Pulse Oximetry 99 Intake/Output Intake/Output: Intake & Output 05/18/21 05/19/21 05/20/21 05/21/21 23:59 23:59 23:59 23:59 Intake Total 1361 2335 2335 880 Output Total 1075 1150 1000 450 Balance 286 1185 1335 430 Meds/Results Medications: Active Medications Generic Name Dose Route Start Last Admin Trade Name Freq PRN Reason Stop Dose Admin Acetaminophen 650 mg 05/16/21 23:26 Acetaminophen Elixir 325 Mg/10.15 Ml Udc PO Q6H PRN Mild Pain (1-3) or Fever Aspirin 325 mg 05/19/21 08:00 05/20/21 08:55 Aspirin 325 Mg Tablet FEED TUBE 325 mg DAILY@0800 LOLITA Administration Dextrose 12.5 gm 05/13/21 13:51 Dextrose 50% 25 Gm/50 Ml Syringe IV PUSH PRN PRN Hypoglycemia Protocol Enoxaparin Sodium 40 mg 05/19/21 09:00 05/20/21 08:55 Enoxaparin 40 Mg/0.4 Ml Syringe SUB-Q 40 mg DAILY LOLITA Administration Glucagon 1 mg 05/13/21 13:51 Glucagon For Inj 1 Mg Vial IM PRN PRN Hypoglycemia Protocol Glucose 15 gm 05/13/21 13:51 Glucose Oral Gel 15 Gm Of Glucse In 37.5 Gm Tube PO PRN PRN Hypoglycemia Protocol Dextrose 1,000 mls @ 100 mls/hr 05/13/21 13:51 Dextrose 5% 1,000 Ml IVPB PRN PRN Hypoglycemia Protocol Piperacillin/Tazobactam/Dextrose 3.375 gm in 50 mls @ 100 mls/hr 05/17/21 16:00 05/21/21 05:41 Zosyn 3.375 Gm/D5w 50ml Pm IVPB Infused Q6HR LOLITA Infusion Levofloxacin/Dextrose 750 mg in 150 mls @ 100 mls/hr 05/19/21 09:00 05/19/21 09:55 Levaquin 750 Mg/D5w 150 Ml IVPB Infused Q48H LOLITA Infusion Vancomycin HCl 1,000 mg in 250 mls @ 250 mls/hr 05/19/21 21:00 05/20/21 2
[2021-05-21] MEDS: ENOXAPARIN 40 MG/0.4 ML SYRINGE SUB-Q (10:30)
[2021-05-21] MEDS: PANTOPRAZOLE SODIUM IV 40 MG VIAL IV PUSH (10:30)
[2021-05-21] MEDS: ASPIRIN 325 MG TABLET FEED TUBE (10:30)
[2021-05-21] MEDS: MINERAL OIL/WHITE PETROLATUM OINTMENT 1 APPLIC EACH EYE ×2 (10:30→20:48)
--- NOTE | 2021-05-21 11:25 | PCDIET ---
Nutrition Follow-Up Complete: Nutrition Diagnosis: Inadequate oral intake related to oral intubation as evidenced by NPO status. Nutrition Goal: Patient to meet estimated nutritional needs. Goal met. Patient tolerating Glucerna 1.2 at 45mL/hr goal rate with 100mL water flush every 4 hours. Last recorded weight is 52.7 kg which is down from last review, despite +I/O. Bowel Motility: BM x 1 today. Labs Reviewed: RBC (3.17), Hgb (9.1), Hct (28.0), Glu (153), BUN (27), Cr (0.6), Alb (1.6), Rosalva Ca (9.62) Meds Noted: Lantus, Levaquin, Protonix, Zosyn, Vancomycin Additional Notes: Buttocks macerated. Will continue to monitor with same goal. Nutrition Monitoring and Evaluation: Follow up every Monday/Monday. Follow daily in ICU rounds.
--- NOTE | 2021-05-21 12:39 | WPDINTPN ---
Progress Note: A&P Assessment and Plan (1) Acute respiratory failure: Code(s): J96.00 - Acute respiratory failure, unspecified whether with hypoxia or hypercapnia Status: Acute Assessment and Plan: acute respiratory failure likely related to encephalopathy and altered mental status secondary to severe sepsis and pneumonia - intubated on 05/13 - Chest CT 05/16/2021 showed Right lower lobe predominant multi segmental pneumonia with cavitary region probably necrosis. - status post bronchoscopy on 05/17 - Is on CMV mode of ventilation, peep of 5, 30% FiO2 with daily pressure support ventilation trial - Her RSBI was adequate but patient mental status and significantly weak cough reflex prevents extubation as patient may not be able to clear airway. - COVID-19 PCR negative - CT scan of the chest was repeated 05/20 and showed Increase in size of cavitary right lower lobe mass most likely necrotic pneumonia. Underlying cancer not totally excludable - discussed with pulmonary and they recommend transfer to a hospital with thoracic surgery consultation for evaluation. - 05/20 I spoke to patient's by phone and then at bedside. I updated him with patient's current status, CT results, current treatment plan and overall guarded prognosis. I explained him that we may have to transfer patient to tertiary facility for thoracic surgery consultation and patient may need surgery to treat the necrotic cavitary pneumonia versus abscess. Patient's told me that she is very weak and would not want any surgery at this time. He does not want her to be transferred to any other facility and wants to continue current treatment plan to see if she gets better. He verbalized understanding that she may not get better with conservative management and may because of. He does want to continue current management including mechanical ventilation and antibiotic therapy for now.. I spoke to him in presence of patient's nurse Edilia. - today early in the morning I had changed her antibiotics to imipenem to cover for Pseudomonas that grew in her sputum - 05/21 later in the day I spoke to patient's and had another family in presence of our clammer Wyatt. He told me that he spoke to his son and feels that patient has suffered enough. Understood the extent of patient's dementia and poor quality of life even before she got to the hospital. He also feels that her weakness, inability to come off the ventilator and necrotic pneumonia has taken a toll on her and she is suffering. He requested the patient be palliatively extubated at kept pain free and comfortable as much possible. He does not want any further mechanical ventilation or aggressive therapy. I will extubate patient and will use opioids, anxiolytics and other agents on as needed basis to promote comfort and discontinue all medical therapy, lab testing and invasive monitoring. s (2) Severe sepsis: Code(s): A41.9 - Sepsis, unspecified organism; R65.20 - Severe sepsis without septic shock Status: Acute Assessment and Plan: patient presented with altered mental status, lactic acidosis, U (3) Acute UTI: Code(s): N39.0 - Urinary tract infection, site not specified Status: Resolved (4) Acute kidney injury: Code(s): N17.9 - Acute kidney failure, unspecified Status: Acute (5) Type 2 diabetes mellitus with hyperglycemia: Code(s): E11.65 - Type 2 diabetes mellitus with hyperglycemia Status: Acute (6) Hypernatremia: Code(s): E87.0 - Hyperosmolality and hypernatremia Status: Acute (7) Dementia: Qualifiers: Dementia type: unspecified type Dementia behavioral disturbance: with behavioral disturbance Qualified Code(s): F03.91 - Unspecified dementia with behavioral disturbance Code(s): F03.90 - Unspecified dementia without behavioral disturbance Status: Acute Assessment and Plan: Alz
[2021-05-21] MEDS: LORazepam INJ (*CRX) 2 MG/ML VIAL IV PUSH ×2 (13:07→14:24)
[2021-05-21] MEDS: MORPHINE SULFATE INJ (*CRX) 10 MG/ML AMP 5 MG IV PUSH (13:08)
[2021-05-21] MEDS: MORPHINE SULFATE (*CRX) 2 MG/ML INJ IV PUSH (14:24)
--- NOTE | 2021-05-21 18:07 | PC.NURSE ---
Patient transferred from [facility]. Report received from SARAH Cruz.
--- NOTE | 2021-05-21 19:49 | PM.IMPN ---
Progress Note: A&P Assessment and Plan (1) Acute respiratory failure: Code(s): J96.00 - Acute respiratory failure, unspecified whether with hypoxia or hypercapnia Status: Acute Assessment and Plan: acute respiratory failure likely related to metabolic encephalopathy secondary to severe sepsis and pneumonia - intubated on 05/13 - Is on CMV mode of ventilation, peep of 5, 30% FiO2 - COVID-19 PCR negative - patient was not on any sedation, was unable theto follow commands - status post bronchoscopy on 05/17 - Chest CT 05/16/2021 showed Right lower lobe predominant multi segmental pneumonia with cavitary region probably necrosis. -05/21/21 palliative extubation (2) Severe sepsis: Code(s): A41.9 - Sepsis, unspecified organism; R65.20 - Severe sepsis without septic shock Status: Acute Assessment and Plan: patient presented with altered mental status, lactic acidosis, UTI - received a total of 3 L of IV fluids - lactic acid has normalized . she was on D5 water for hypernatremia which is also off now - patient weaned from pressors - given the cavitary lesion in the right lung, patient was switched from ceftriaxone to zosyn, levaquin ( 05/17/21) and vancomycin - blood cultures growing Proteus mirabilis - urine cultures growing Proteus mirabilis, pansensitive - repeat sputum cx,blood cultures negative but repeat imaging showed enlarging cavitary lesion. recommendation given to transfer pt to [facility] for CTS consultation and resection of abscess - declined transfer (3) Acute UTI: Code(s): N39.0 - Urinary tract infection, site not specified Status: Resolved Assessment and Plan: Proteus UTI antibiotics as above (4) Acute kidney injury: Code(s): N17.9 - Acute kidney failure, unspecified Status: Acute Assessment and Plan: resolved acute kidney injury likely related to dehydration, UTI, hypovolemia, severe sepsis - creatinine on admission was 4.40 ( on 04/06/2021 creatinine was 1.0) - received 3 L IV fluids and continue maintenance IV fluids - monitor renal function, electrolytes and urine output -nephro following (5) Type 2 diabetes mellitus with hyperglycemia: Code(s): E11.65 - Type 2 diabetes mellitus with hyperglycemia Status: Acute Assessment and Plan: - on high-dose sliding scale insulin Accu-Cheks - cont Lantus (6) Hypernatremia: Code(s): E87.0 - Hyperosmolality and hypernatremia Status: Acute Assessment and Plan: likely related to hypovolemia, dehydration - patient has been given adequate amount of IV fluids - continue free water flushes - nephrology following (7) Hyperkalemia: Code(s): E87.5 - Hyperkalemia Status: Acute Assessment and Plan: hyperkalemia likely related acute kidney injury - patient has been treated with calcium chloride, insulin and D50, sodium bicarb - later patient became hypokalemic and potassium was replaced - monitor (8) Dementia: Qualifiers: Dementia type: unspecified type Dementia behavioral disturbance: with behavioral disturbance Qualified Code(s): F03.91 - Unspecified dementia with behavioral disturbance Code(s): F03.90 - Unspecified dementia without behavioral disturbance Status: Acute Assessment and Plan: Alzheimer's dementia - according the patient is hard of hearing but is able to communicate, according to him she does not have severe dementia (medical record shows pt was discharged AAOx1 from last admission) (9) DVT prophylaxis: Code(s): Z29.9 - Encounter for prophylactic measures, unspecified Status: Acute Assessment and Plan: DVT prophylaxis; heparin subcu stress ulcer prophylaxis: Protonix (10) Atrial fibrillation: Code(s): I48.91 - Unspecified atrial fibrillation Status: Acute Assessment and Plan: patient now in normal sinus
[2021-05-22 07:45] VITALS: BP 108/51; PULSE 71; RESP 20; TEMP 36.1
[2021-05-22] MEDS: MINERAL OIL/WHITE PETROLATUM OINTMENT 1 APPLIC EACH EYE ×2 (08:11→20:54)
[2021-05-22] MEDS: ATROPINE SULFATE 1% OPHTH SOLN 5 ML BOTTLE SUBLINGUAL (08:13)
--- NOTE | 2021-05-22 14:07 | PM.IMPN ---
Progress Note: A&P Assessment and Plan (1) Acute respiratory failure: Code(s): J96.00 - Acute respiratory failure, unspecified whether with hypoxia or hypercapnia Status: Acute Assessment and Plan: acute respiratory failure likely related to metabolic encephalopathy secondary to severe sepsis and pneumonia - intubated on 05/13 - Is on CMV mode of ventilation, peep of 5, 30% FiO2 - COVID-19 PCR negative - patient was not on any sedation, was unable theto follow commands - status post bronchoscopy on 05/17 - Chest CT 05/16/2021 showed Right lower lobe predominant multi segmental pneumonia with cavitary region probably necrosis. -05/21/21 palliative extubation - patient process of transitioning no significant change from prior day (2) Severe sepsis: Code(s): A41.9 - Sepsis, unspecified organism; R65.20 - Severe sepsis without septic shock Status: Acute Assessment and Plan: comfort measures initiated antibiotics discontinued patient presented with altered mental status, lactic acidosis, UTI - received a total of 3 L of IV fluids - lactic acid has normalized . she was on D5 water for hypernatremia which is also off now - patient weaned from pressors - given the cavitary lesion in the right lung, patient was switched from ceftriaxone to zosyn, levaquin ( 05/17/21) and vancomycin - blood cultures growing Proteus mirabilis - urine cultures growing Proteus mirabilis, pansensitive - repeat sputum cx,blood cultures negative but repeat imaging showed enlarging cavitary lesion. recommendation given to transfer pt to [facility] for CTS consultation and resection of abscess - declined transfer (3) Acute UTI: Code(s): N39.0 - Urinary tract infection, site not specified Status: Resolved Assessment and Plan: comfort measures initiated antibiotics discontinued 05/21/2021 Proteus UTI antibiotics as above (4) Acute kidney injury: Code(s): N17.9 - Acute kidney failure, unspecified Status: Acute Assessment and Plan: resolved acute kidney injury likely related to dehydration, UTI, hypovolemia, severe sepsis - creatinine on admission was 4.40 ( on 04/06/2021 creatinine was 1.0) - received 3 L IV fluids and continue maintenance IV fluids - monitor renal function, electrolytes and urine output -nephro following (5) Type 2 diabetes mellitus with hyperglycemia: Code(s): E11.65 - Type 2 diabetes mellitus with hyperglycemia Status: Acute Assessment and Plan: - on high-dose sliding scale insulin Accu-Cheks - cont Lantus (6) Hypernatremia: Code(s): E87.0 - Hyperosmolality and hypernatremia Status: Acute Assessment and Plan: likely related to hypovolemia, dehydration - patient has been given adequate amount of IV fluids - continue free water flushes - nephrology following (7) Hyperkalemia: Code(s): E87.5 - Hyperkalemia Status: Acute Assessment and Plan: resolved hyperkalemia likely related acute kidney injury - patient has been treated with calcium chloride, insulin and D50, sodium bicarb - later patient became hypokalemic and potassium was replaced - monitor (8) Dementia: Qualifiers: Dementia type: unspecified type Dementia behavioral disturbance: with behavioral disturbance Qualified Code(s): F03.91 - Unspecified dementia with behavioral disturbance Code(s): F03.90 - Unspecified dementia without behavioral disturbance Status: Acute Assessment and Plan: Alzheimer's dementia - according the patient is hard of hearing but is able to communicate, according to him she does not have severe dementia (medical record shows pt was discharged AAOx1 from last admission) (9) DVT prophylaxis: Code(s): Z29.9 - Encounter for prophylactic measures, unspecified Status: Acute Assessment and Plan: DVT prophylaxis; heparin subcu
[2021-05-22 20:00] VITALS: BP 115/47; PULSE 75; RESP 18; TEMP 36.2; O2SAT 94
[2021-05-23 08:00] VITALS: BP 126/50; PULSE 77; RESP 18; TEMP 36.1; O2SAT 92
[2021-05-23] MEDS: MINERAL OIL/WHITE PETROLATUM OINTMENT 1 APPLIC EACH EYE ×2 (08:03→20:08)
--- NOTE | 2021-05-23 14:28 | PM.IMPN ---
Progress Note: A&P Assessment and Plan (1) Acute respiratory failure: Code(s): J96.00 - Acute respiratory failure, unspecified whether with hypoxia or hypercapnia Status: Acute Assessment and Plan: acute respiratory failure likely related to metabolic encephalopathy secondary to severe sepsis and pneumonia - intubated on 05/13 - Is on CMV mode of ventilation, peep of 5, 30% FiO2 - COVID-19 PCR negative - patient was not on any sedation, was unable theto follow commands - status post bronchoscopy on 05/17 - Chest CT 05/16/2021 showed Right lower lobe predominant multi segmental pneumonia with cavitary region probably necrosis. -05/21/21 palliative extubation - patient process of transitioning no significant change from prior days evaluation -continue current care on comfort measures (2) Severe sepsis: Code(s): A41.9 - Sepsis, unspecified organism; R65.20 - Severe sepsis without septic shock Status: Acute Assessment and Plan: comfort measures initiated antibiotics discontinued patient presented with altered mental status, lactic acidosis, UTI - received a total of 3 L of IV fluids - lactic acid has normalized . she was on D5 water for hypernatremia which is also off now - patient weaned from pressors - given the cavitary lesion in the right lung, patient was switched from ceftriaxone to zosyn, levaquin ( 05/17/21) and vancomycin - blood cultures growing Proteus mirabilis - urine cultures growing Proteus mirabilis, pansensitive - repeat sputum cx,blood cultures negative but repeat imaging showed enlarging cavitary lesion. recommendation given to transfer pt to [facility] for CTS consultation and resection of abscess - declined transfer (3) Acute UTI: Code(s): N39.0 - Urinary tract infection, site not specified Status: Resolved Assessment and Plan: comfort measures initiated antibiotics discontinued 05/21/2021 Proteus UTI antibiotics as above (4) Acute kidney injury: Code(s): N17.9 - Acute kidney failure, unspecified Status: Acute (5) Type 2 diabetes mellitus with hyperglycemia: Code(s): E11.65 - Type 2 diabetes mellitus with hyperglycemia Status: Acute Assessment and Plan: - on high-dose sliding scale insulin Accu-Cheks - cont Lantus (6) Hypernatremia: Code(s): E87.0 - Hyperosmolality and hypernatremia Status: Acute Assessment and Plan: likely related to hypovolemia, dehydration - patient has been given adequate amount of IV fluids - continue free water flushes - nephrology following (7) Hyperkalemia: Code(s): E87.5 - Hyperkalemia Status: Acute Assessment and Plan: resolved hyperkalemia likely related acute kidney injury - patient has been treated with calcium chloride, insulin and D50, sodium bicarb - later patient became hypokalemic and potassium was replaced - monitor (8) Dementia: Qualifiers: Dementia type: unspecified type Dementia behavioral disturbance: with behavioral disturbance Qualified Code(s): F03.91 - Unspecified dementia with behavioral disturbance Code(s): F03.90 - Unspecified dementia without behavioral disturbance Status: Acute Assessment and Plan: Alzheimer's dementia - according the patient is hard of hearing but is able to communicate, according to him she does not have severe dementia (medical record shows pt was discharged AAOx1 from last admission) (9) DVT prophylaxis: Code(s): Z29.9 - Encounter for prophylactic measures, unspecified Status: Acute Assessment and Plan: DVT prophylaxis; heparin subcu stress ulcer prophylaxis: Protonix (10) Atrial fibrillation: Code(s): I48.91 - Unspecified atrial fibrillation Status: Acute Assessment and Plan: patient now in normal sinus rhythm continue aspirin not on therapeutic anticoagulation as radha
[2021-05-23 20:00] VITALS: BP 113/50; PULSE 100; RESP 24; TEMP 36.3; O2SAT 96
--- NOTE | 2021-05-24 07:40 | PM.IMPN ---
Progress Note: A&P Assessment and Plan (1) Atrial fibrillation: Code(s): I48.91 - Unspecified atrial fibrillation Status: Acute Assessment and Plan: normal sinus (2) Cavitary pneumonia: Code(s): J18.9 - Pneumonia, unspecified organism; J98.4 - Other disorders of lung Status: Acute Assessment and Plan: etiology of clinical decline is cavitary pneumonia. after failing antibiotic therapy, family did not want any surgical or aggressive measures. They transitioned her to comfort care. (3) Acute respiratory failure: Code(s): J96.00 - Acute respiratory failure, unspecified whether with hypoxia or hypercapnia Status: Acute Assessment and Plan: Intubated 05/13, bronchoscopy 05/17, palliative extubation 05/21 (4) Urinary retention: Code(s): R33.9 - Retention of urine, unspecified Status: Acute Assessment and Plan: Poole catheter (5) Metabolic encephalopathy: Code(s): G93.41 - Metabolic encephalopathy Status: Acute Assessment and Plan: likely from infection (6) DVT prophylaxis: Code(s): Z29.9 - Encounter for prophylactic measures, unspecified Status: Acute Assessment and Plan: comfort care measures Additional Plan do not resuscitate, comfort care measures only Pain control: Morphine Anxiety: Ativan Secretions: Atropine sublingual Time Spent With Patient Time with patient: 15 - 25 minutes Subjective Date/time seen: 05/24/21 07:40 Patient on comfort care measures. Appears to be comfortable. no changes to medications. nurses note deterioration from yesterday. I will follow-up with hospice to see if she will be inpatient hospice or if they can arrange home hospice. Review of Systems Review of Systems: ROS unobtainable: Yes unobtainable due to medical condition Exam Narrative: - GENERAL: Breathing comfortably, not responsive. - HENT: dry mucous membranes - LUNGS: Clear to auscultation bilaterally - CARDIOVASCULAR: Regular rate and rhythm. - NEUROLOGIC: unable assess due to medical condition - PSYCHIATRIC: unable to assess, appears comfortable - SKIN: No rashes or lesions. Warm. Objective Data Vital Signs Vital Signs: Vital Signs - 24 hr 05/23/21 08:00 05/23/21 20:00 Temperature 36.1 C L 36.3 C L Pulse Rate 77 100 Respiratory Rate 18 24 H Blood Pressure 126/50 L 113/50 L Pulse Oximetry 92 96 Intake/Output Intake/Output: Intake & Output 05/21/21 05/22/21 05/23/21 05/24/21 23:59 23:59 23:59 23:59 Intake Total 880 Output Total 9369 591 9851 350 Balance -120 -250 -1330 -350 Meds/Results Medications: Active Medications Generic Name Dose Route Start Last Admin Trade Name Freq PRN Reason Stop Dose Admin Atropine Sulfate 1 - 2 drop 05/21/21 12:39 05/22/21 08:13 Atropine Sulfate 1% Ophth Soln 5 Ml Bottle SUBLINGUAL 1 drop Q4H PRN Administration Secretions Lorazepam 2 mg 05/21/21 12:39 05/21/21 14:24 Lorazepam Inj (*Crx) 2 Mg/Ml Vial IV PUSH 2 mg Q1H PRN Administration Anxiety/Comfort Morphine Sulfate 2 mg 05/21/21 12:39 05/21/21 14:24 Morphine Sulfate (*Crx) 2 Mg/Ml Inj IV PUSH 2 mg Q30M PRN Administration COMFORT Multi-Ingred Cream/Lotion/Oil/Oint 1 applic 05/15/21 09:00 05/23/21 20:08 Mineral Oil/White Petrolatum Ointment EACH EYE 1 applic Q12HR LOLITA Administration Radiology Results: ITS Impressions Abdomen X-Ray 05/13/21 10:45 IMPRESSION: NG tube in distal body or antrum of stomach Renal Ultrasound 05/13/21 15:24 IMPRESSION: 1. Mild atrophy of the otherwise normal kidneys. Head CT 05/16/21 19:11 IMPRESSION: 1. No acute intracranial findings. 2. Chronic age related findings. High Resolution CT 05/16/21 19:17 IMPRESSION: 1. Right lower lobe predominant multi segmental pneumonia with cavitary region probably necrosis. Underlying cancer not totally e
[2021-05-24 08:00] VITALS: BP 128/75; PULSE 124; RESP 24; TEMP 36.3; O2SAT 92
[2021-05-24] MEDS: MINERAL OIL/WHITE PETROLATUM OINTMENT 1 APPLIC EACH EYE ×2 (08:37→20:19)
[2021-05-24] MEDS: ATROPINE SULFATE 1% OPHTH SOLN 5 ML BOTTLE SUBLINGUAL (08:37)
--- NOTE | 2021-05-24 09:18 | PCDIET ---
Nutrition Follow-Up Complete: Nutrition Diagnosis: Inadequate oral intake related to oral intubation as evidenced by NPO status. Nutrition Goal: Patient to meet estimated nutritional needs. Goal not met. Patient was palliatively extubated on 05/21/21 and remains on comfort care. No diet ordered at this time which is appropriate. Consult RD if plan of care changes and aggressive nutritional therapy is desired. Last recorded weight is 64.8 kg which is increased from last review. -I/O. Bowel Motility: Last documented BM on 05/23/21 x 1. Labs Reviewed: No new labs available. Meds Noted: Ativan, Morphine Additional Notes: Buttocks macerated. Will continue to monitor. Nutrition Monitoring and Evaluation: Follow up every 5 days.
[2021-05-24 20:34] VITALS: BP 104/49; PULSE 118; RESP 22; TEMP 36.6; O2SAT 91
[2021-05-25] MEDS: ATROPINE SULFATE 1% OPHTH SOLN 5 ML BOTTLE SUBLINGUAL ×4 (01:20→20:00)
[2021-05-25 08:00] VITALS: BP 124/54; PULSE 108; RESP 24; TEMP 36.4; O2SAT 89
[2021-05-25 09:51] VITALS: RESP 24; O2SAT 90
[2021-05-25] MEDS: MINERAL OIL/WHITE PETROLATUM OINTMENT 1 APPLIC EACH EYE ×2 (09:51→20:00)
--- NOTE | 2021-05-25 10:45 | WPDPN ---
Progress Note: A&P Assessment and Plan (1) Cavitary pneumonia: Code(s): J18.9 - Pneumonia, unspecified organism; J98.4 - Other disorders of lung Status: Acute Assessment and Plan: Etiology of sepsis and clinical decline (2) Atrial fibrillation: Qualifiers: Atrial fibrillation type: longstanding persistent Qualified Code(s): I48.11 - Longstanding persistent atrial fibrillation Code(s): I48.91 - Unspecified atrial fibrillation Status: Acute (3) Acute respiratory failure: Qualifiers: Respiratory failure complication: hypoxia Qualified Code(s): J96.01 - Acute respiratory failure with hypoxia Code(s): J96.00 - Acute respiratory failure, unspecified whether with hypoxia or hypercapnia Status: Acute (4) Urinary retention: Code(s): R33.9 - Retention of urine, unspecified Status: Acute (5) Metabolic encephalopathy: Code(s): G93.41 - Metabolic encephalopathy Status: Acute Additional Plan continue comfort care measures meds: atropine drops for secretions, Morphine for pain, Ativan for anxiety - patient family to decide about hospice either home hospice or hospice at longterm facility code status DNR comfort measures only Time Spent With Patient Time with patient: 15 - 25 minutes Subjective Date/time seen: 05/25/21 10:45. Patient examined she is on hospice and appears to be comfortable. She is not responsive breathing shallow breaths. may be imminent. she did not qualify for inpatient hospice, we will continue comfort care measures for now and family to decide on hospice plan for either at home or at longterm facility. Review of Systems Review of Systems: ROS unobtainable: Yes unobtainable due to medical condition Exam Narrative: - GENERAL: Elderly female appears comfortable not responding - EYES: eyes closed - HENT: dry mucous membrane - LUNGS: shallow breaths - CARDIOVASCULAR: Regular rate and rhythm - ABDOMEN: Soft, non-tender and non-distended - NEUROLOGIC: not responsive - PSYCHIATRIC: sleeping comfortably - SKIN: No rashes or lesions. Warm. Objective Data Vital Signs Vital Signs: Vital Signs - 24 hr 05/24/21 20:34 05/25/21 08:00 Temperature 36.6 C 36.4 C L Pulse Rate 118 H 108 H Respiratory Rate 22 H 24 H Blood Pressure 104/49 L 124/54 L Pulse Oximetry 91 89 L Intake/Output Intake/Output: Intake & Output 07/31/21 08/01/21 08/02/21 08/03/21 23:59 23:59 23:59 23:59 Output Total 250 1330 525 80 Balance -250 -1330 -525 -80 Meds/Results Medications: Active Medications Generic Name Dose Route Start Last Admin Trade Name Freq PRN Reason Stop Dose Admin Atropine Sulfate 1 - 2 drop 05/21/21 12:39 05/25/21 09:52 Atropine Sulfate 1% Ophth Soln 5 Ml Bottle SUBLINGUAL 2 drop Q4H PRN Administration Secretions Lorazepam 2 mg 05/21/21 12:39 05/21/21 14:24 Lorazepam Inj (*Crx) 2 Mg/Ml Vial IV PUSH 2 mg Q1H PRN Administration Anxiety/Comfort Morphine Sulfate 2 mg 05/21/21 12:39 05/21/21 14:24 Morphine Sulfate (*Crx) 2 Mg/Ml Inj IV PUSH 2 mg Q30M PRN Administration COMFORT Multi-Ingred Cream/Lotion/Oil/Oint 1 applic 05/15/21 09:00 05/25/21 09:51 Mineral Oil/White Petrolatum Ointment EACH EYE 1 applic Q12HR LOLITA Administration Radiology Results: ITS Impressions Abdomen X-Ray 05/13/21 10:45 IMPRESSION: NG tube in distal body or antrum of stomach Renal Ultrasound 05/13/21 15:24 IMPRESSION: 1. Mild atrophy of the otherwise normal kidneys. Head CT 05/16/21 19:11 IMPRESSION: 1. No acute intracranial findings. 2. Chronic age related findings. High Resolution CT 05/16/21 19:17 IMPRESSION: 1. Right lower lobe predominant multi segmental pneumonia with cavitary region probably necrosis. Underlying cancer not totally excludable. 2. Large amount of fluid/debris in the l
[2021-05-25 20:06] VITALS: BP 105/41; PULSE 102; RESP 22; TEMP 36.3; O2SAT 92
[2021-05-26] MEDS: ATROPINE SULFATE 1% OPHTH SOLN 5 ML BOTTLE SUBLINGUAL ×4 (00:21→14:59)
[2021-05-26 08:00] VITALS: BP 101/33; PULSE 56; RESP 20; TEMP 35.4; O2SAT 88
[2021-05-26] MEDS: MINERAL OIL/WHITE PETROLATUM OINTMENT 1 APPLIC EACH EYE (08:44)
[2021-05-26 08:47] VITALS: RESP 20; O2SAT 92
--- NOTE | 2021-05-26 09:27 | PM.DS ---
DS: Admitting Diagnosis Admitting Diagnosis severe sepsis from cavitary pneumonia DS: Discharge Diagnosis Discharge Diagnosis (1) Cavitary pneumonia: Code(s): J18.9 - Pneumonia, unspecified organism; J98.4 - Other disorders of lung Status: Acute (2) Urinary retention: Code(s): R33.9 - Retention of urine, unspecified Status: Acute (3) Metabolic encephalopathy: Code(s): G93.41 - Metabolic encephalopathy Status: Acute (4) Severe sepsis: Code(s): A41.9 - Sepsis, unspecified organism; R65.20 - Severe sepsis without septic shock Status: Acute (5) Acute respiratory failure: Qualifiers: Respiratory failure complication: hypoxia Qualified Code(s): J96.01 - Acute respiratory failure with hypoxia Code(s): J96.00 - Acute respiratory failure, unspecified whether with hypoxia or hypercapnia Status: Acute (6) Atrial fibrillation: Qualifiers: Atrial fibrillation type: longstanding persistent Qualified Code(s): I48.11 - Longstanding persistent atrial fibrillation Code(s): I48.91 - Unspecified atrial fibrillation Status: Acute DS: Summary Hospital Course Reason for hospitalization: unresponsiveness Hospital Course: patient is a 80-year-old female past with history of Alzheimer's dementia, hypertension, type 2 diabetes, hypothyroidism, CAD status post CABG, history of breast cancer presents to ED after being found by nurses being unresponsive at [facility]. Workup found cavitary pneumonia. with clinical decline she was intubated 05/13, bronchoscopy 05/17, subsequent palliative extubation 05/21. Palliative extubation was decided after family did not want aggressive treatment for cavitary pneumonia, after failing antibiotic therapy. Family did not want surgical or aggressive measures. She was transition to comfort care measures only and palliative extubation. patient was evaluated by [facility] who [facility]. Status at Discharge Cognitive/behavioral status at discharge: Alzheimer's dementia Functional status at discharge: bed bound Overall status at discharge: patient is not back to baseline Time Spent with Patient Time attestation: Total time spent providing and/or coordinating discharge services: 35 Time spent: Greater than 30 minutes Exam Narrative: - GENERAL: Breathing comfortably, nonverbal. - HENT: dry mucous membranes - LUNGS: Clear to auscultation bilaterally - CARDIOVASCULAR: Regular rate and rhythm. - NEUROLOGIC: unable assess due to medical condition - PSYCHIATRIC: unable to assess, appears comfortable - SKIN: No rashes or lesions. Warm. DS: Data Additional Comments Additional comments: no new labs. Cavitary RLL mass likely necrotic pneumonia Discharge Plan Discharge Attending physician on discharge: Shree Carmona Consulting providers: Umair Patel ; Nima Hood ; Trent Aguilar ; Oneil Bishop Discharging Clinician: Shree Carmona Anticipated Discharge Date/Time: 05/26/21 09:24 Patient Disposition: Hospice - Medical Facility Diet: as tolerated Discharge Instructions: Please follow up with [facility] for hospice needs Patient Instructions: Pain Management (DC), Poole Catheter Placement and Care (DC), Comfort Measures (GEN) Stand Alone Forms: General Discharge Information Follow-up/Referrals: Elvia Mccallum, [Primary Care Provider] - (inform about hospice decision) Discharge Medications: Discontinued memantine 10 mg tablet 10 mg PO BID RF: 0 divalproex 500 mg tablet extended release 24 hr 1,000 mg PO HS RF: 0 sulfamethoxazole-trimethoprim [Bactrim DS] 800-160 mg Tablet 1 tablet PO Q12H RF: 0 bisacodyl 10 mg Suppository 10 mg RECTAL Q12H PRN (Reason: Constipation) RF: 0 calcium carbonate 185 mg Tablet 1 mg PO BID PRN (Reason: Indigestion) RF: 0 docusate sodium 100 mg T
== END 2021-05-26 15:25 | disposition hospice, inpatient (51) | DRG 870 ==
LOC: ANHED 11:17 → ANHICU 05-17 12:07 → ANH3MED 05-24 21:39 → ANHICU 05-27 14:17
PROVIDERS: Internal Medicine; Internal Medicine Nephrology; Internal Medicine Pulmonary Disease; Physician Assistant; Admitting Provider Internal Medicine; Emergency Provider Emergency Medicine; PCP Family Medicine; Visit Provider Student in an Organized Health Care Education/Training Program
PROC: 0BJ08ZZ Inspection of Tracheobronchial Tree, Via Natural or Artificial Opening Endoscopic (ICD-10-PCS; CPT 31622; principal; 2021-05-17 16:00)
DX: A41.9 Sepsis, unspecified organism (principal); G93.41 Metabolic encephalopathy; J18.9 Pneumonia, unspecified organism; J96.01 Acute respiratory failure with hypoxia; T83.511A Infection and inflammatory reaction due to indwelling urethral catheter, initial encounter; N39.0 Urinary tract infection, site not specified; N17.9 Acute kidney failure, unspecified; E87.0 Hyperosmolality and hypernatremia; E87.2 Acidosis; Z66 Do not resuscitate; Z51.5 Encounter for palliative care; R65.20 Severe sepsis without septic shock; J98.4 Other disorders of lung; I10 Essential (primary) hypertension; E03.9 Hypothyroidism, unspecified; I25.10 Atherosclerotic heart disease of native coronary artery without angina pectoris; Z95.1 Presence of aortocoronary bypass graft; Z85.3 Personal history of malignant neoplasm of breast; R33.9 Retention of urine, unspecified; E87.5 Hyperkalemia; E11.65 Type 2 diabetes mellitus with hyperglycemia; D64.9 Anemia, unspecified; Y73.1 Therapeutic (nonsurgical) and rehabilitative gastroenterology and urology devices associated with adverse incidents; Y92.129 Unspecified place in nursing home as the place of occurrence of the external cause; E86.0 Dehydration; E86.1 Hypovolemia; G30.9 Alzheimer's disease, unspecified; F02.80 Dementia in other diseases classified elsewhere, unspecified severity, without behavioral disturbance, psychotic disturbance, mood disturbance, and anxiety; B96.4 Proteus (mirabilis) (morganii) as the cause of diseases classified elsewhere; Z20.822 Contact with and (suspected) exposure to COVID-19; Z99.3 Dependence on wheelchair; N31.2 Flaccid neuropathic bladder, not elsewhere classified
CPT/HCPCS: 31500; 36415; 36430; 36556; 36600; 70450; 71045; 71250; 76775; 80048; 80053; 80202; 81001; 82375; 82436; 82570; 82805; 82948; 83036; 83050; 83605; 83735; 83935; 84100; 84133; 84300; 84443; 85025; 85027; 85610; 85730; 85999; 86140; 86850; 86900; 86901; 86920; 87040; 87070; 87077; 87086; 87088; 87186; 87205; 93005; 94003; 96361; 96374; 96375; 99291; A9270; C1751; C9113; C9803; J0330; J0696; J1644; J1650; J1815; J1956; J2060; J2250; J2270; J2543; J2765; J3370; J7030; J7040; J7050; J7070; J7120; P9016; U0003; U0005